=== PATIENT | male | born 1965 | race Two or more races ===

== ENCOUNTER 2023-05-13 00:52 | Inpatient (IN) | payer MEDICAID ==
[~2023-05-13] VITALS: Ht 188 cm; Wt 82.8 kg
[2023-05-13] VITALS (8 sets, daily range): BP systolic 135–159; BP diastolic 79–88; PULSE 11–103; RESP 14–23; TEMP 97.8–98.2; O2SAT 94–100
[2023-05-13] MEDS ORDERED: ASPirin 81 mg TAB PO ONE (01:15)
[2023-05-13] MEDS ORDERED: ONDANSETRON HCL 4 MG/2 ML VIAL IV ONE (01:15)
[2023-05-13] MEDS ORDERED: PANTOPRAZOLE 40 MG/10 ML VIAL INJ IV ONE (01:15)
[2023-05-13] MEDS ORDERED: ACETAMINOPHEN 325 MG TAB PO ONE ×2 (01:15)
[2023-05-13] MEDS ORDERED: methylPREDNISolone SOD SUCC 40 MG/ML VL IV ONE ×2 (01:15→13:00)
[2023-05-13] MEDS ORDERED: ALBUTEROL SULF 2.5 MG/0.5ML(0.5%) NEB SOLN NEB ONE ×2 (01:15→03:15)
[2023-05-13] MEDS ORDERED: FUROSEMIDE 40 MG/4 ML VIAL IV ONE ×2 (01:15→03:15)
[2023-05-13] MEDS ORDERED: IPRATROPIUM BROM 0.5 MG/2.5ML INH SOL NEB ONE (01:15)
[2023-05-13] MEDS ORDERED: NITROGLYCERIN 0.4MG/HR TOPICAL PATCH TD ONE (01:15)
[2023-05-13] MEDS ORDERED: VANCOMYCIN 1GM/250ML 250 ML IV ONE (01:30)
[2023-05-13] MEDS ORDERED: guaiFENesin-DM 100/10mg/5ml SYR PO ONE (01:30)
[2023-05-13] MEDS ORDERED: VANCOMYCIN PER PHARMACY 0 MG IV SCH (01:30)
[2023-05-13] MEDS ORDERED: PIPERACILLIN-TAZOB 3.375GM 100 ML IV ONE (01:30)
[2023-05-13 01:57] LABS: Alanine Aminotransferase 13 U/L (7-40); Albumin 3.9 g/dL (3.2-4.8); Alkaline Phosphatase 105 U/L (46-116); Anion Gap 15 (5-15); Aspartate Aminotransferase 13 U/L (13-40); BUN/Creatinine Ratio 8.5 (10.0-20.0); Bilirubin, Total 0.4 mg/dL (0.2-1.0); Blood Alcohol 3.1 mg/dL (<10); Calcium 9.1 mg/dL (8.7-10.4); Carbon Dioxide 20 mmol/L (20-30); Chloride 103 mmol/L (98-107); Glucose 90 mg/dL (74-106); Magnesium 1.6 mg/dL (1.6-2.6); Sodium 138 mmol/L (136-145); Total Protein 6.9 g/dL (5.7-8.2)
[2023-05-13 01:58] LABS: INR 1.08 (0.9-1.15); Prothrombin Time 11.3 sec (9.3-11.8)
[2023-05-13 02:40] LABS: Basophils # (auto) 0.1 10 ^3/uL (0-0.2); Basophils % (auto) 1.1 % (0.0-2.0); Eosinophils # (auto) 0.2 10 ^3/uL (0-0.8); Hematocrit 28.7 % (41.0-53.0); Hemoglobin 9.8 g/dL (13.5-17.5); Lymphocytes # (auto) 1.8 10 ^3/uL (0.4-5.4); Lymphocytes % (auto) 14.4 % (10.0-50.0); Mean Corpuscular Hemoglobin 31.8 pg (28.0-32.0); Mean Corpuscular Volume 93.5 fL (80.0-100.0); Monocytes # (auto) 0.8 10 ^3/uL (0-1.3); Monocytes % (auto) 6.8 % (0.0-12.0); Neutrophils # (auto) 9.3 10 ^3/uL (1.6-8.6); Neutrophils % (auto) 75.7 % (37.0-80.0); Nucleated Red Blood Cells % 0.1 %; Red Blood Cells 3.07 10^6/uL (4.5-5.90); Red Cell Distribution Width 14.8 % (11.8-14.3); White Blood Cell 12.3 10^3/uL (4.4-10.8)
[2023-05-13 02:41] LABS: Potassium 6.4 mmol/L (3.5-5.1)
[2023-05-13 02:42] LABS: Blood Urea Nitrogen 89 mg/dL (9-23)
[2023-05-13] MEDS ORDERED: SODIUM BICARBONATE 8.4% INJ 50ML SYRINGE IV ONE (03:15)
[2023-05-13] MEDS ORDERED: diphenhdrAMINE HCL 50 MG/1 ML VL IV ONE (03:15)
[2023-05-13] MEDS ORDERED: CALCIUM GLUC 1,000mg/50ml-NS 50 ML IV ONE (03:15)
[2023-05-13] MEDS ORDERED: InsuLIN REG 1unit/0.01ml Soln (100units/ml) IV ONE (03:15)
[2023-05-13] MEDS ORDERED: DEXTROSE (50%) 50ML SYRG IV ONE (03:15)
[2023-05-13] MEDS ORDERED: NITROGLYCERIN 0.4 MG SL TAB SL PRN (04:00)
[2023-05-13] MEDS ORDERED: SODIUM ZIRCONIUM CYCL 10 GM PAK PO ONE (04:00)
[2023-05-13] MEDS ORDERED: TEMAZEPAM 15 MG CAP PO PRN (04:00)
[2023-05-13] MEDS ORDERED: MORPHINE SULFATE INJ 2 MG/ml SYRG IV PRN (04:00)
[2023-05-13] MEDS ORDERED: ONDANSETRON HCL 4 MG/2 ML VIAL IV PRN (04:00)
[2023-05-13 04:30] LABS: Rapid Influenza A Negative (Negative); Rapid Influenza B Negative (Negative)
[2023-05-13 04:31] LABS: COVID19 ANTIGEN SOFIA FIA NEGATIVE (NEGATIVE)
[2023-05-13] MEDS: hydrALAZINE HCL 25 MG TAB PO SCH ×3 (06:17→22:38)
[2023-05-13] MEDS ORDERED: VANCOMYCIN 500 MG in D5W 5% 100 ML IV ONE (08:00)
[2023-05-13] MEDS: CALCIUM ACETATE 667 MG CAP PO SCH ×3 (08:58→18:08)
[2023-05-13] MEDS ORDERED: VALSARTAN 80 MG TAB PO SCH (10:00)
[2023-05-13] MEDS: CARVEDILOL 12.5 MG TAB PO SCH ×2 (10:15→22:37)
[2023-05-13] MEDS: BUMETANIDE 1 MG TAB PO SCH (10:15)
[2023-05-13] MEDS: amLODIPine BESYLATE 5 MG TAB PO SCH (10:16)
[2023-05-13] MEDS: cefTRIAXone 1GM/50ML D5W 50 ML IV SCH (10:52)
[2023-05-13] MEDS: AZITHROMYCIN 500MG/ 250ML 250 ML IV SCH (12:19)
[2023-05-13] MEDS ORDERED: SODIUM CHL 0.9% 1000 ML BAG XX ONE (14:15)
[2023-05-13 17:39] LABS: Amphetamine Screen, Urine Pos (NEGATIVE); Barbiturate Scree,Urine Neg (NEGATIVE); Benzodiazephine Screen, Urine Neg (NEGATIVE); Cannabinoid Screen, Urine Neg (NEGATIVE); Cocaine Screen, Urine Neg (NEGATIVE); Opiate Scree,Urine Neg (NEGATIVE); Phencyclidine Screen, Urine Neg (NEGATIVE); Urine Bacteria NONE SEEN /hpf (None Seen); Urine Blood 1+ /uL (Negative); Urine Clarity HAZY (Clear); Urine Color Yellow (Yellow); Urine Mucus FEW (None Seen); Urine Protein, UAD 4+ (Negative); Urine Specific Gravity 1.025 (1.001-1.035); Urine Urobilinogen Normal (Negative); Urine WBC 8 /hpf (0 - 3); Urine pH 6.5 (5.0-8.0)
[2023-05-13] MEDS: ALBUTEROL SULF 2.5 MG/0.5ML(0.5%) NEB SOLN NEB PRN (18:41)
[2023-05-13] MEDS ORDERED: VALS320T PO (19:00)
[2023-05-13] MEDS ORDERED: ASPI-498 PO (19:00)
[2023-05-13] MEDS ORDERED: LISI2.5T47 PO (19:00)
[2023-05-13] MEDS ORDERED: HYDR-4297 PO (19:00)
[2023-05-13] MEDS ORDERED: CARV12.544 PO (19:00)
[2023-05-13] MEDS ORDERED: TRAZ-228 PO (19:00)
[2023-05-13] MEDS ORDERED: CALC667C PO (19:00)
[2023-05-13] MEDS ORDERED: ATOR20TA50 PO (19:00)
[2023-05-13] MEDS ORDERED: AMLO1TAB22 PO (19:00)
[2023-05-13] MEDS ORDERED: BUME2TAB5 PO (19:00)
[2023-05-13] MEDS ORDERED: FUROSEMIDE 100 MG/10ML VIAL IV ONE (20:15)
[2023-05-13] MEDS ORDERED: EPOETIN ALFA-EPBX 10,000 UNIT/1ML VIAL SC ONE (21:00)
[2023-05-13] MEDS: ATORVASTATIN 20 MG TAB PO SCH (22:37)
[2023-05-13] MEDS: methylPREDNISolone SOD SUCC 40 MG/ML VL IV SCH (22:38)
[2023-05-14] VITALS (13 sets, daily range): BP systolic 128–139; BP diastolic 72–99; PULSE 83–101; RESP 16–22; TEMP 97.7–98.9; O2SAT 96–100
[2023-05-14] MEDS: hydrALAZINE HCL 25 MG TAB PO SCH ×3 (06:05→22:20)
[2023-05-14 06:17] LABS: Basophils # (auto) 0 10 ^3/uL (0-0.2); Basophils % (auto) 0.1 % (0.0-2.0); Eosinophils # (auto) 0 10 ^3/uL (0-0.8); Mean Corpuscular Hgb Conc. 33.8 g/dL (32.0-36.0); Monocytes # (auto) 0.3 10 ^3/uL (0-1.3); Red Blood Cells 2.59 10^6/uL (4.5-5.90); White Blood Cell 16.2 10^3/uL (4.4-10.8)
[2023-05-14 06:19] LABS: Hematocrit 24.1 % (41.0-53.0); Hemoglobin 8.1 g/dL (13.5-17.5); Lymphocytes # (auto) 0.9 10 ^3/uL (0.4-5.4); Lymphocytes % (auto) 5.4 % (10.0-50.0); Mean Corpuscular Hemoglobin 31.4 pg (28.0-32.0); Monocytes % (auto) 2.1 % (0.0-12.0); Neutrophils # (auto) 14.9 10 ^3/uL (1.6-8.6); Neutrophils % (auto) 92.4 % (37.0-80.0)
[2023-05-14 06:25] LABS: Albumin 3.6 g/dL (3.2-4.8); Alkaline Phosphatase 65 U/L (46-116); Anion Gap 19 (5-15); Aspartate Aminotransferase 8 U/L (13-40); BUN/Creatinine Ratio 9.6 (10.0-20.0); Bilirubin, Total < 0.2 mg/dL (0.2-1.0); Calcium 8.5 mg/dL (8.5-10.1); Carbon Dioxide 16 mmol/L (20-30); Chloride 100 mmol/L (98-107); Glucose 133 mg/dL (74-106); Sodium 135 mmol/L (136-145); Total Protein 6.4 g/dL (5.7-8.2)
[2023-05-14 06:28] LABS: Alanine Aminotransferase 9 U/L (7-40)
[2023-05-14 06:31] LABS: Blood Urea Nitrogen 115 mg/dL (9-23); Potassium 6.9 mmol/L (3.5-5.1)
[2023-05-14] MEDS ORDERED: SODIUM CHL 0.9% 1000 ML BAG XX ONE (07:00)
[2023-05-14] MEDS ORDERED: CALCIUM GLUC 1,000mg/50ml-NS 50 ML IV ONE (07:00)
[2023-05-14] MEDS ORDERED: SODIUM ZIRCONIUM CYCL 10 GM PAK PO ONE (07:00)
[2023-05-14] MEDS ORDERED: SODIUM BICARBONATE 8.4% INJ 50ML SYRINGE IV ONE (07:00)
[2023-05-14] MEDS ORDERED: DEXTROSE (50%) 50ML SYRG IV ONE (07:00)
[2023-05-14] MEDS ORDERED: ALBUTEROL SULF 2.5 MG/0.5ML(0.5%) NEB SOLN NEB ONE (07:00)
[2023-05-14] MEDS ORDERED: FUROSEMIDE 40 MG/4 ML VIAL IV ONE (07:00)
[2023-05-14] MEDS ORDERED: InsuLIN REG 1unit/0.01ml Soln (100units/ml) IV ONE (07:00)
[2023-05-14 07:14] LABS: % Iron Saturation 44.5 % (20-55)
[2023-05-14] MEDS: cefTRIAXone 1GM/50ML D5W 50 ML IV SCH (09:00)
[2023-05-14] MEDS: CALCIUM ACETATE 667 MG CAP PO SCH ×3 (09:39→18:25)
[2023-05-14] MEDS: methylPREDNISolone SOD SUCC 40 MG/ML VL IV SCH ×2 (09:47→22:17)
[2023-05-14] MEDS: BUMETANIDE 1 MG TAB PO SCH (09:53)
[2023-05-14] MEDS: amLODIPine BESYLATE 5 MG TAB PO SCH (09:54)
[2023-05-14] MEDS: CARVEDILOL 12.5 MG TAB PO SCH ×2 (09:54→22:19)
[2023-05-14] MEDS: AZITHROMYCIN 500MG/ 250ML 250 ML IV SCH (13:06)
[2023-05-14] MEDS: SODIUM ZIRCONIUM CYCL 10 GM PAK PO SCH ×2 (14:00→22:00)
[2023-05-14] MEDS ORDERED: VANCOMYCIN 1GM/250ML 250 ML IV ONE (18:00)
[2023-05-14] MEDS: ALBUTEROL SULF 2.5 MG/0.5ML(0.5%) NEB SOLN NEB PRN (19:10)
[2023-05-14] MEDS ORDERED: EPOETIN ALFA-EPBX 10,000 UNIT/1ML VIAL SC ONE (21:00)
[2023-05-14] MEDS: ATORVASTATIN 20 MG TAB PO SCH (22:17)
[2023-05-15] VITALS (9 sets, daily range): BP systolic 139–171; BP diastolic 90–105; PULSE 84–101; RESP 16–20; TEMP 98.6; O2SAT 95–100
[2023-05-15] MEDS: ALBUTEROL SULF 2.5 MG/0.5ML(0.5%) NEB SOLN NEB PRN (04:12)
[2023-05-15 06:21] LABS: Anion Gap 12 (5-15); Carbon Dioxide 26 mmol/L (20-30); Chloride 96 mmol/L (98-107); Sodium 134 mmol/L (136-145)
[2023-05-15 06:22] LABS: Calcium 8.9 mg/dL (8.7-10.4)
[2023-05-15 06:27] LABS: BUN/Creatinine Ratio 10.6 (10.0-20.0); Glucose 124 mg/dL (74-106)
[2023-05-15] MEDS: hydrALAZINE HCL 25 MG TAB PO SCH ×2 (06:27→14:00)
[2023-05-15 06:30] LABS: Blood Urea Nitrogen 96 mg/dL (9-23); Potassium 5.8 mmol/L (3.5-5.1)
[2023-05-15] MEDS: SODIUM ZIRCONIUM CYCL 10 GM PAK PO SCH ×2 (06:36→14:00)
[2023-05-15 06:37] LABS: Basophils # (auto) 0 10 ^3/uL (0-0.2); Basophils % (auto) 0.1 % (0.0-2.0); Eosinophils # (auto) 0 10 ^3/uL (0-0.8); Hemoglobin 9.3 g/dL (13.5-17.5); Lymphocytes # (auto) 0.5 10 ^3/uL (0.4-5.4); Lymphocytes % (auto) 3.4 % (10.0-50.0); Mean Corpuscular Hgb Conc. 34.4 g/dL (32.0-36.0); Monocytes # (auto) 0.4 10 ^3/uL (0-1.3); Monocytes % (auto) 2.7 % (0.0-12.0); Neutrophils # (auto) 13.4 10 ^3/uL (1.6-8.6); Neutrophils % (auto) 93.8 % (37.0-80.0); Red Blood Cells 2.91 10^6/uL (4.5-5.90); Red Cell Distribution Width 14.9 % (11.8-14.3); White Blood Cell 14.3 10^3/uL (4.4-10.8)
[2023-05-15] MEDS ORDERED: SODIUM CHL 0.9% 1000 ML BAG XX ONE ×2 (07:00)
[2023-05-15] MEDS: cefTRIAXone 1GM/50ML D5W 50 ML IV SCH ×2 (09:00→09:25)
[2023-05-15] MEDS: CALCIUM ACETATE 667 MG CAP PO SCH ×2 (09:23→12:26)
[2023-05-15] MEDS: methylPREDNISolone SOD SUCC 40 MG/ML VL IV SCH (09:23)
[2023-05-15] MEDS: CARVEDILOL 12.5 MG TAB PO SCH (09:24)
[2023-05-15] MEDS: BUMETANIDE 1 MG TAB PO SCH (09:24)
[2023-05-15] MEDS: amLODIPine BESYLATE 5 MG TAB PO SCH (09:25)
[2023-05-15] MEDS: AZITHROMYCIN 500MG/ 250ML 250 ML IV SCH (10:00)
[2023-05-15] MEDS ORDERED: AMOX500T86 PO (10:08)
[2023-05-15] MEDS ORDERED: PRED20TA2 PO (10:08)
[2023-05-16] MEDS ORDERED: SODIUM CHL 0.9% 1000 ML BAG XX ONE (07:00)
== END 2023-05-15 15:35 | disposition home or self-care (01) | DRG 137 ==
LOC: ER 00:52 → TELE 04:01 → TELE-CENTR 17:22
PROVIDERS: ADMIT Nurse Practitioner; ATTEND Internal Medicine Pulmonary Disease
PROC: 5A1D70Z Performance of Urinary Filtration, Intermittent, Less than 6 Hours Per Day (ICD-10-PCS; principal; 2023-05-14)
PROC: 5A1D70Z Performance of Urinary Filtration, Intermittent, Less than 6 Hours Per Day (ICD-10-PCS; 2023-05-15)
DX: J15.6 Pneumonia due to other Gram-negative bacteria (principal); I13.2 Hypertensive heart and chronic kidney disease with heart failure and with stage 5 chronic kidney disease, or end stage renal disease; N18.6 End stage renal disease; D63.1 Anemia in chronic kidney disease; N25.81 Secondary hyperparathyroidism of renal origin; J44.0 Chronic obstructive pulmonary disease with (acute) lower respiratory infection; J44.1 Chronic obstructive pulmonary disease with (acute) exacerbation; I50.9 Heart failure, unspecified; E87.5 Hyperkalemia; Z20.822 Contact with and (suspected) exposure to COVID-19; F15.10 Other stimulant abuse, uncomplicated; F17.210 Nicotine dependence, cigarettes, uncomplicated; Z82.49 Family history of ischemic heart disease and other diseases of the circulatory system; Z91.158 Patient's noncompliance with renal dialysis for other reason; Z99.2 Dependence on renal dialysis
CPT/HCPCS: 36415; 36600; 71045; 80048; 80053; 80202; 80307; 80320; 81001; 82728; 82805; 82962; 83540; 83550; 83605; 83735; 83880; 84132; 84443; 84484; 85025; 85610; 85730; 87040; 87081; 87086; 87340; 87426; 87804; 90935; 93005; 94640; 96365; 96375; 99291; C9113; G0378; J0696; J1642; J1815; J2543; J7060

== ENCOUNTER 2023-06-02 01:38 | Emergency (ER) | payer MEDICAID ==
[~2023-06-02] VITALS: Ht 190.5 cm; Wt 88.6 kg
[~2023-06-02 01:38] MED LIST: AMLO1TAB22 PO; AMOX500T86 PO; ASPI-498 PO; ATOR20TA50 PO; BUME2TAB5 PO; CALC667C PO; CARV12.544 PO; HYDR-4297 PO; LISI2.5T47 PO; PRED20TA2 PO; TRAZ-228 PO; VALS320T PO
[2023-06-02] MEDS ORDERED: cloNIDine HCL 0.1 MG TAB PO ONE (02:30)
[2023-06-02 03:29] LABS: Basophils # (auto) 0.2 10 ^3/uL (0-0.2); Basophils % (auto) 2.5 % (0.0-2.0); Eosinophils # (auto) 0.3 10 ^3/uL (0-0.8); Eosinophils % (auto) 3.6 % (0.0-7.0); Hematocrit 26.8 % (41.0-53.0); Hemoglobin 9.1 g/dL (13.5-17.5); Lymphocytes # (auto) 1.6 10 ^3/uL (0.4-5.4); Lymphocytes % (auto) 18.7 % (10.0-50.0); Mean Corpuscular Hemoglobin 32.5 pg (28.0-32.0); Mean Corpuscular Hgb Conc. 33.9 g/dL (32.0-36.0); Mean Corpuscular Volume 95.6 fL (80.0-100.0); Monocytes # (auto) 0.7 10 ^3/uL (0-1.3); Neutrophils # (auto) 5.7 10 ^3/uL (1.6-8.6); Neutrophils % (auto) 67.2 % (37.0-80.0); Red Cell Distribution Width 16.1 % (11.8-14.3); White Blood Cell 8.4 10^3/uL (4.4-10.8)
[2023-06-02 03:43] LABS: Alanine Aminotransferase 15 U/L (7-40); Albumin 3.6 g/dL (3.2-4.8); Alkaline Phosphatase 108 U/L (46-116); Anion Gap 12 (5-15); Aspartate Aminotransferase 18 U/L (13-40); Bilirubin, Total 0.3 mg/dL (0.2-1.0); Blood Urea Nitrogen 72 mg/dL (9-23); Calcium 8.3 mg/dL (8.7-10.4); Carbon Dioxide 24 mmol/L (20-30); Chloride 104 mmol/L (98-107); Glucose 88 mg/dL (74-106); INR 1.03 (0.9-1.15); Magnesium 1.7 mg/dL (1.6-2.6); Partial Thromboplastin Time 27.3 SEC (24.5-34.5); Potassium 5.1 mmol/L (3.5-5.1); Prothrombin Time 10.8 sec (9.3-11.8); Sodium 140 mmol/L (136-145); Total Protein 5.9 g/dL (5.7-8.2)
[2023-06-02 06:36] VITALS: BP 175/116; PULSE 85; RESP 17; TEMP 98.1; O2SAT 98
[2023-06-02] MEDS ORDERED: FUROSEMIDE 40 MG/4 ML VIAL IV ONE (06:45)
[2023-06-02] MEDS ORDERED: NITROGLYCERIN 2% OINT 1GM PKG TD ONE (06:45)
== END 2023-06-02 06:56 | disposition left against medical advice (07) ==
LOC: ER 01:38
DX: R06.02 Shortness of breath (principal); Z79.899 Other long term (current) drug therapy; Z53.21 Procedure and treatment not carried out due to patient leaving prior to being seen by health care provider
CPT/HCPCS: 36415; 71045; 80053; 83735; 84484; 85025; 85610; 85730

== ENCOUNTER 2023-06-10 04:49 | Inpatient (IN) | payer MEDICAID ==
[~2023-06-10] VITALS: Ht 188 cm; Wt 80.1 kg
[2023-06-10 05:52] LABS: Basophils # (auto) 0.1 10 ^3/uL (0-0.2); Basophils % (auto) 1.2 % (0.0-2.0); Eosinophils # (auto) 0.6 10 ^3/uL (0-0.8); Eosinophils % (auto) 5.5 % (0.0-7.0); Hematocrit 29.3 % (41.0-53.0); Hemoglobin 9.8 g/dL (13.5-17.5); Lymphocytes # (auto) 1.3 10 ^3/uL (0.4-5.4); Lymphocytes % (auto) 12.5 % (10.0-50.0); Mean Corpuscular Hemoglobin 32.5 pg (28.0-32.0); Mean Corpuscular Hgb Conc. 33.3 g/dL (32.0-36.0); Mean Corpuscular Volume 97.5 fL (80.0-100.0); Monocytes # (auto) 0.9 10 ^3/uL (0-1.3); Monocytes % (auto) 9.1 % (0.0-12.0); Neutrophils # (auto) 7.3 10 ^3/uL (1.6-8.6); Neutrophils % (auto) 71.7 % (37.0-80.0); Red Cell Distribution Width 15.9 % (11.8-14.3); White Blood Cell 10.2 10^3/uL (4.4-10.8)
[2023-06-10 06:27] LABS: Alanine Aminotransferase 33 U/L (7-40); Alkaline Phosphatase 134 U/L (46-116); Anion Gap 15 (5-15); BUN/Creatinine Ratio 8.1 (10.0-20.0); Blood Urea Nitrogen 65 mg/dL (9-23); Calcium 8.9 mg/dL (8.7-10.4); Carbon Dioxide 20 mmol/L (20-30); Chloride 107 mmol/L (98-107); Glucose 88 mg/dL (74-106); Magnesium 1.8 mg/dL (1.6-2.6); Sodium 142 mmol/L (136-145)
[2023-06-10 06:28] LABS: Albumin 3.9 g/dL (3.2-4.8); Aspartate Aminotransferase 35 U/L (13-40); Bilirubin, Total 0.2 mg/dL (0.2-1.0); Total Protein 6.4 g/dL (5.7-8.2)
[2023-06-10 06:31] LABS: Potassium 5.9 mmol/L (3.5-5.1)
[2023-06-10] MEDS ORDERED: SODIUM BICARBONATE 8.4 % INJ 50ML VIAL IV ONE (07:00)
[2023-06-10] MEDS ORDERED: CALCIUM GLUC 1,000mg/50ml-NS 50 ML IV ONE (07:00)
[2023-06-10] MEDS ORDERED: NITROGLYCERIN 0.4 MG SL TAB SL PRN (08:45)
[2023-06-10] MEDS ORDERED: ALBUTEROL MEDNEB 2.5 mg/3ml NEB NEB PRN (08:45)
[2023-06-10] MEDS ORDERED: MORPHINE SULFATE INJ 2 MG/ml SYRG IV PRN (08:45)
[2023-06-10] MEDS: ASPirin-EC 81 mg tab PO SCH (09:33)
[2023-06-10] MEDS: amLODIPine BESYLATE 5 MG TAB PO SCH (09:33)
[2023-06-10] MEDS: BUMETANIDE 1 MG TAB PO SCH (09:34)
[2023-06-10] MEDS: CARVEDILOL 12.5 MG TAB PO SCH ×2 (09:35→22:10)
[2023-06-10] MEDS: ATORVASTATIN 20 MG TAB PO SCH (09:36)
[2023-06-10] MEDS ORDERED: PATIENTS OWN MEDICATION (Lisinopril 2.5 MG) PO SCH (10:00)
[2023-06-10] MEDS ORDERED: VALSARTAN 80 MG TAB PO SCH (10:00)
[2023-06-10] MEDS ORDERED: HEPARIN SODIUM (PORCINE) 5000 UNITS/ML 1ML VIAL ONE (11:12)
[2023-06-10 12:43] VITALS: BP 154/79; PULSE 88; RESP 18; O2SAT 95
[2023-06-10] MEDS: HEPARIN SODIUM (PORCINE) 5000 UNITS/ML 1ML VIAL SC SCH ×2 (12:51→22:11)
[2023-06-10] MEDS: CALCIUM ACETATE 667 MG CAP PO SCH ×2 (13:14→18:15)
[2023-06-10] MEDS ORDERED: SODIUM CHL 0.9% 1000 ML BAG XX ONE (13:15)
[2023-06-10 13:18] VITALS: RESP 18; O2SAT 96
[2023-06-10] MEDS: hydrALAZINE HCL 25 MG TAB PO SCH ×2 (14:26→22:09)
[2023-06-10] MEDS ORDERED: VALS1TAB58 PO (17:38)
[2023-06-10 19:40] VITALS: PULSE 97; RESP 21; O2SAT 97
[2023-06-10] MEDS: ACETAMINOPHEN 325 MG TAB PO PRN (20:15)
[2023-06-10] MEDS: hydrALAZINE HCL 20 MG/ML VL IV PRN (20:16)
[2023-06-10] MEDS ORDERED: EPOETIN ALFA-EPBX 10,000 UNIT/1ML VIAL SC ONE (21:00)
[2023-06-10 23:00] VITALS: BP 157/91; PULSE 96; RESP 18; TEMP 98.4; O2SAT 97
[2023-06-11] VITALS (10 sets, daily range): BP systolic 132–163; BP diastolic 87–97; PULSE 65–91; RESP 14–23; TEMP 97.9–98.3; O2SAT 97–100
[2023-06-11] MEDS: ACETAMINOPHEN 325 MG TAB PO PRN (04:11)
[2023-06-11] MEDS: hydrALAZINE HCL 20 MG/ML VL IV PRN (04:28)
[2023-06-11 06:05] LABS: Basophils # (auto) 0.1 10 ^3/uL (0-0.2); Basophils % (auto) 1.9 % (0.0-2.0); Eosinophils # (auto) 0.3 10 ^3/uL (0-0.8); Hematocrit 26.7 % (41.0-53.0); Hemoglobin 9.2 g/dL (13.5-17.5); Lymphocytes # (auto) 1.4 10 ^3/uL (0.4-5.4); Lymphocytes % (auto) 25.8 % (10.0-50.0); Mean Corpuscular Hemoglobin 32.7 pg (28.0-32.0); Mean Corpuscular Hgb Conc. 34.4 g/dL (32.0-36.0); Monocytes # (auto) 0.7 10 ^3/uL (0-1.3); Monocytes % (auto) 12.9 % (0.0-12.0); Neutrophils # (auto) 2.9 10 ^3/uL (1.6-8.6); Neutrophils % (auto) 53.4 % (37.0-80.0); Red Blood Cells 2.82 10^6/uL (4.5-5.90); Red Cell Distribution Width 15.5 % (11.8-14.3); White Blood Cell 5.4 10^3/uL (4.4-10.8)
[2023-06-11] MEDS: hydrALAZINE HCL 25 MG TAB PO SCH ×3 (06:15→20:53)
[2023-06-11 06:32] LABS: Alanine Aminotransferase 26 U/L (7-40); Albumin 3.5 g/dL (3.2-4.8); Alkaline Phosphatase 108 U/L (46-116); Anion Gap 9 (5-15); Aspartate Aminotransferase 30 U/L (13-40); BUN/Creatinine Ratio 6.1 (10.0-20.0); Calcium 8.6 mg/dL (8.7-10.4); Carbon Dioxide 27 mmol/L (20-30); Chloride 105 mmol/L (98-107); Glucose 83 mg/dL (74-106); Potassium 4.8 mmol/L (3.5-5.1); Sodium 141 mmol/L (136-145)
[2023-06-11 06:33] LABS: Bilirubin, Total 0.3 mg/dL (0.2-1.0); Total Protein 5.9 g/dL (5.7-8.2)
[2023-06-11 06:46] LABS: Blood Urea Nitrogen 34 mg/dL (9-23)
[2023-06-11] MEDS: CALCIUM ACETATE 667 MG CAP PO SCH ×3 (08:04→18:48)
[2023-06-11] MEDS ORDERED: LORazepam 0.5 MG TAB PO PRN (10:30)
[2023-06-11] MEDS ORDERED: ACETAMINOPHEN 325 MG TAB PO PRN (10:30)
[2023-06-11] MEDS ORDERED: NICOTINE 21MG/24 HR TOPICAL PATCH TD ONE (10:30)
[2023-06-11] MEDS: ASPirin-EC 81 mg tab PO SCH (11:45)
[2023-06-11] MEDS: BUMETANIDE 1 MG TAB PO SCH (11:46)
[2023-06-11] MEDS: amLODIPine BESYLATE 5 MG TAB PO SCH (11:47)
[2023-06-11] MEDS: ATORVASTATIN 20 MG TAB PO SCH (11:48)
[2023-06-11] MEDS: CARVEDILOL 12.5 MG TAB PO SCH ×2 (11:49→20:54)
[2023-06-11] MEDS: HEPARIN SODIUM (PORCINE) 5000 UNITS/ML 1ML VIAL SC SCH ×2 (11:50→22:00)
[2023-06-11] MEDS ORDERED: HEPARIN SODIUM (PORCINE) 5000 UNITS/ML 1ML VIAL ONE ×2 (20:36→20:37)
[2023-06-12] VITALS (7 sets, daily range): BP systolic 143–168; BP diastolic 85–108; PULSE 82–92; RESP 18–20; TEMP 36.7; O2SAT 96–100
[2023-06-12] MEDS: hydrALAZINE HCL 25 MG TAB PO SCH ×2 (06:30→15:30)
[2023-06-12] MEDS ORDERED: SODIUM CHL 0.9% 1000 ML BAG XX ONE (07:00)
[2023-06-12] MEDS: CALCIUM ACETATE 667 MG CAP PO SCH ×2 (08:50→15:29)
[2023-06-12] MEDS ORDERED: NICOTINE 21MG/24 HR TOPICAL PATCH TD SCH (10:00)
[2023-06-12] MEDS: HEPARIN SODIUM (PORCINE) 5000 UNITS/ML 1ML VIAL SC SCH (10:00)
[2023-06-12] MEDS: ASPirin-EC 81 mg tab PO SCH (15:27)
[2023-06-12] MEDS: ATORVASTATIN 20 MG TAB PO SCH (15:27)
[2023-06-12] MEDS: CARVEDILOL 12.5 MG TAB PO SCH (15:28)
[2023-06-12] MEDS: BUMETANIDE 1 MG TAB PO SCH (15:29)
[2023-06-12] MEDS: amLODIPine BESYLATE 5 MG TAB PO SCH (15:29)
== END 2023-06-12 16:45 | disposition home or self-care (01) | DRG 133 ==
LOC: EDUNIT# 04:49 → ER 04:49 → EDBD 04:49 → TELE 08:43 → EAST 21:53 → TELE-EAST 06-11 02:15
PROVIDERS: ADMIT Nurse Practitioner Family; ATTEND Internal Medicine
PROC: 5A1D70Z Performance of Urinary Filtration, Intermittent, Less than 6 Hours Per Day (ICD-10-PCS; principal; 2023-06-10)
PROC: 5A1D70Z Performance of Urinary Filtration, Intermittent, Less than 6 Hours Per Day (ICD-10-PCS; 2023-06-12)
DX: J96.00 Acute respiratory failure, unspecified whether with hypoxia or hypercapnia (principal); I21.A1 Myocardial infarction type 2; I50.33 Acute on chronic diastolic (congestive) heart failure; E87.20 Acidosis, unspecified; D63.1 Anemia in chronic kidney disease; N18.6 End stage renal disease; I13.2 Hypertensive heart and chronic kidney disease with heart failure and with stage 5 chronic kidney disease, or end stage renal disease; E87.5 Hyperkalemia; F17.210 Nicotine dependence, cigarettes, uncomplicated; Z87.01 Personal history of pneumonia (recurrent); Z91.199 Patient's noncompliance with other medical treatment and regimen due to unspecified reason; Z99.2 Dependence on renal dialysis; Z82.49 Family history of ischemic heart disease and other diseases of the circulatory system; Z83.3 Family history of diabetes mellitus; Z71.6 Tobacco abuse counseling
CPT/HCPCS: 36415; 71045; 80053; 83735; 83880; 84132; 84484; 85025; 87340; 90935; 93005; 93306; 94640; 99291; G0378; J1642

== ENCOUNTER 2023-09-22 02:07 | Inpatient (IN) | payer MEDICAID ==
[~2023-09-22] VITALS: Ht 188 cm; Wt 88.0 kg
[2023-09-22] VITALS (11 sets, daily range): BP systolic 147; BP diastolic 107; PULSE 91–99; RESP 14–22; TEMP 97.9; O2SAT 91–97
[~2023-09-22 02:07] MED LIST changes: -AMOX500T86 PO; -LISI2.5T47 PO; +VALS1TAB58 PO; -VALS320T PO
[2023-09-22] MEDS: cloNIDine HCL 0.1 MG TAB PO ONE (02:54)
[2023-09-22 02:56] LABS: Basophils # (auto) 0.1 10 ^3/uL (0-0.2); Basophils % (auto) 1.9 % (0.0-2.0); Eosinophils # (auto) 0.3 10 ^3/uL (0-0.8); Eosinophils % (auto) 3.7 % (0.0-7.0); Hematocrit 29.9 % (41.0-53.0); Hemoglobin 9.6 g/dL (13.5-17.5); Lymphocytes # (auto) 1.1 10 ^3/uL (0.4-5.4); Lymphocytes % (auto) 15.4 % (10.0-50.0); Mean Corpuscular Hemoglobin 31.7 pg (28.0-32.0); Mean Corpuscular Hgb Conc. 32.1 g/dL (32.0-36.0); Mean Corpuscular Volume 98.7 fL (80.0-100.0); Monocytes # (auto) 0.5 10 ^3/uL (0-1.3); Monocytes % (auto) 7.8 % (0.0-12.0); Neutrophils % (auto) 71.2 % (37.0-80.0); Nucleated Red Blood Cells % 0.1 %; Red Blood Cells 3.03 10^6/uL (4.5-5.90); Red Cell Distribution Width 15.7 % (11.8-14.3)
[2023-09-22 03:04] LABS: Alanine Aminotransferase 13 U/L (7-40); Albumin 4.1 g/dL (3.2-4.8); Alkaline Phosphatase 150 U/L (46-116); Anion Gap 9 (5-15); Aspartate Aminotransferase 14 U/L (13-40); BUN/Creatinine Ratio 7.7 (10.0-20.0); Bilirubin, Total 0.4 mg/dL (0.2-1.0); Blood Urea Nitrogen 55 mg/dL (9-23); Calcium 8.9 mg/dL (8.7-10.4); Carbon Dioxide 27 mmol/L (20-30); Chloride 104 mmol/L (98-107); Glucose 85 mg/dL (74-106); Potassium 4.9 mmol/L (3.5-5.1); Sodium 140 mmol/L (136-145); Total Protein 6.9 g/dL (5.7-8.2)
[2023-09-22] MEDS: ALBUTEROL SULF 2.5 MG/0.5ML(0.5%) NEB SOLN NEB ONE (03:16)
[2023-09-22] MEDS: methylPREDNISolone SOD SUCC 125 MG/2 ML VL IM ONE (04:09)
[2023-09-22] MEDS: IPRATROPIUM BROM 0.5 MG/2.5ML INH SOL NEB PRN (05:34)
[2023-09-22] MEDS: ALBUTEROL SULF 2.5 MG/0.5ML(0.5%) NEB SOLN NEB PRN (05:35)
[2023-09-22] MEDS: cefTRIAXone 1GM/50ML D5W 50 ML IV ONE (05:50)
[2023-09-22] MEDS ORDERED: ONDANSETRON HCL 4 MG/2 ML VIAL IV PRN (07:15)
[2023-09-22] MEDS ORDERED: ACETAMINOPHEN 325 MG TAB PO PRN (07:15)
[2023-09-22] MEDS ORDERED: MORPHINE SULFATE INJ 2 MG/ml SYRG IV PRN (07:15)
[2023-09-22] MEDS ORDERED: NITROGLYCERIN 0.4 MG SL TAB SL PRN (07:15)
[2023-09-22] MEDS ORDERED: cloNIDine HCL 0.1 MG TAB PO PRN (07:15)
[2023-09-22] MEDS ORDERED: HYDROcodone-ACET 5/325MG TAB PO PRN (07:15)
[2023-09-22] MEDS ORDERED: DOCUSATE SOD 100 MG CAP PO PRN (07:15)
[2023-09-22 07:55] LABS: Basophils # (auto) 0.1 10 ^3/uL (0-0.2); Basophils % (auto) 0.7 % (0.0-2.0); Eosinophils # (auto) 0 10 ^3/uL (0-0.8); Eosinophils % (auto) 0.7 % (0.0-7.0); Hematocrit 30.9 % (41.0-53.0); Hemoglobin 10.2 g/dL (13.5-17.5); Lymphocytes # (auto) 0.5 10 ^3/uL (0.4-5.4); Mean Corpuscular Hemoglobin 32.6 pg (28.0-32.0); Mean Corpuscular Hgb Conc. 33.1 g/dL (32.0-36.0); Mean Corpuscular Volume 98.3 fL (80.0-100.0); Monocytes # (auto) 0.2 10 ^3/uL (0-1.3); Monocytes % (auto) 2.3 % (0.0-12.0); Neutrophils # (auto) 6.3 10 ^3/uL (1.6-8.6); Neutrophils % (auto) 89.3 % (37.0-80.0); Red Blood Cells 3.14 10^6/uL (4.5-5.90); Red Cell Distribution Width 15.2 % (11.8-14.3); White Blood Cell 7.1 10^3/uL (4.4-10.8)
[2023-09-22 08:13] LABS: Alanine Aminotransferase 20 U/L (7-40); Albumin 4.3 g/dL (3.2-4.8); Alkaline Phosphatase 157 U/L (46-116); Anion Gap 13 (5-15); Aspartate Aminotransferase 20 U/L (13-40); BUN/Creatinine Ratio 9.2 (10.0-20.0); Calcium 9.3 mg/dL (8.5-10.1); Carbon Dioxide 24 mmol/L (20-30); Chloride 103 mmol/L (98-107); Glucose 105 mg/dL (74-106); Sodium 140 mmol/L (136-145)
[2023-09-22 08:14] LABS: Bilirubin, Total 0.5 mg/dL (0.2-1.0); Total Protein 6.9 g/dL (5.7-8.2)
[2023-09-22 08:19] LABS: Blood Urea Nitrogen 68 mg/dL (9-23); Potassium 5.7 mmol/L (3.5-5.1)
[2023-09-22] MEDS: HEPARIN SODIUM (PORCINE) 5000 UNITS/ML 1ML VIAL SC SCH (09:02)
[2023-09-22] MEDS: FAMOTIDINE (10MG/ML) 2ML VL IV SCH (09:03)
[2023-09-22] MEDS: B-COMPLEX W/ C & FOLIC ACID(NEPHROVITE TAB) PO SCH (09:03)
[2023-09-22] MEDS: ASPirin 81 mg TAB PO SCH (09:03)
[2023-09-22] MEDS: SEVELAMER 800 MG TAB PO SCH (09:03)
[2023-09-22] MEDS: AZITHROMYCIN 500MG/ 250ML 250 ML IV SCH (09:05)
[2023-09-22] MEDS: SODIUM ZIRCONIUM CYCL 10 GM PAK PO ONE (09:05)
[2023-09-22] MEDS: CARVEDILOL 12.5 MG TAB PO SCH (09:05)
[2023-09-22 09:42] LABS: Triglycerides 57 mg/dL (< 150)
[2023-09-22 09:43] LABS: LDL Cholesterol 62 mg/dL (< 100)
[2023-09-22 09:44] LABS: Cholesterol 126 mg/dL (< 200); HDL Cholesterol 53 mg/dL (40-59)
[2023-09-22] MEDS: BUDESONIDE (INHALATION) 0.5 MG/2 ML NEB NEB SCH (10:35)
[2023-09-22] MEDS: cefTRIAXone 1GM/50ML D5W 50 ML IV SCH (11:06)
[2023-09-22 12:15] LABS: COVID19 ANTIGEN SOFIA FIA NEGATIVE (NEGATIVE); Rapid Influenza A Negative (Negative); Rapid Influenza B Negative (Negative)
[2023-09-22] MEDS: SODIUM CHL 0.9% 1000 ML BAG XX ONE (13:43)
[2023-09-22] MEDS ORDERED: methylPREDNISolone SOD SUCC 40 MG/ML VL IV SCH (14:00)
[2023-09-22] MEDS: SODIUM CHLOR 0.9% PF (SALINE LOCK) 10ML VIAL/SYR IV SCH (14:09)
[2023-09-22] MEDS: BUMETANIDE 2.5mg/10ml (0.25 mg/ml) INJ IV SCH (18:34)
[2023-09-22] MEDS: ATORVASTATIN 20 MG TAB PO SCH (21:10)
[2023-09-23] MEDS: BUMETANIDE 1mg/4ml VIAL (0.25mg/ml) ONE (05:22)
[2023-09-23 05:33] LABS: Basophils # (auto) 0 10 ^3/uL (0-0.2); Basophils % (auto) 0.2 % (0.0-2.0); Eosinophils # (auto) 0 10 ^3/uL (0-0.8); Eosinophils % (auto) 0.1 % (0.0-7.0); Hematocrit 28.8 % (41.0-53.0); Hemoglobin 9.5 g/dL (13.5-17.5); Lymphocytes # (auto) 1.2 10 ^3/uL (0.4-5.4); Lymphocytes % (auto) 12.6 % (10.0-50.0); Mean Corpuscular Hemoglobin 32.4 pg (28.0-32.0); Monocytes # (auto) 0.7 10 ^3/uL (0-1.3); Monocytes % (auto) 7.5 % (0.0-12.0); Neutrophils # (auto) 7.5 10 ^3/uL (1.6-8.6); Neutrophils % (auto) 79.6 % (37.0-80.0); Red Blood Cells 2.94 10^6/uL (4.5-5.90); Red Cell Distribution Width 14.9 % (11.8-14.3); White Blood Cell 9.4 10^3/uL (4.4-10.8)
[2023-09-23 05:47] LABS: Alanine Aminotransferase 16 U/L (7-40); Alkaline Phosphatase 126 U/L (46-116); Anion Gap 9 (5-15); Aspartate Aminotransferase 14 U/L (13-40); BUN/Creatinine Ratio 8.2 (10.0-20.0); Calcium 9.1 mg/dL (8.5-10.1); Carbon Dioxide 29 mmol/L (20-30); Chloride 101 mmol/L (98-107); Glucose 96 mg/dL (74-106); Sodium 139 mmol/L (136-145)
[2023-09-23 05:48] LABS: Bilirubin, Total 0.3 mg/dL (0.2-1.0); Total Protein 6.6 g/dL (5.7-8.2)
[2023-09-23 05:49] LABS: Blood Urea Nitrogen 51 mg/dL (9-23)
[2023-09-23 06:05] VITALS: PULSE 95; RESP 16; O2SAT 95
[2023-09-23 06:15] VITALS: PULSE 95; RESP 16; O2SAT 100
[2023-09-23] MEDS: SODIUM ZIRCONIUM CYCL 10 GM PAK PO ONE (06:46)
[2023-09-23] MEDS: CALCIUM GLUC 1,000mg/50ml-NS 50 ML IV ONE (06:46)
[2023-09-23] MEDS: DEXTROSE (50%) 50ML SYRG IV ONE (06:47)
[2023-09-23] MEDS: SODIUM BICARBONATE 8.4 % INJ 50ML VIAL IV ONE (06:47)
[2023-09-23] MEDS: InsuLIN REG 1unit/0.01ml Soln (100units/ml) IV ONE (06:50)
[2023-09-23 08:36] VITALS: PULSE 93; RESP 20; O2SAT 97
[2023-09-23 09:31] LABS: Alanine Aminotransferase 13 U/L (7-40); Alkaline Phosphatase 119 U/L (46-116); Anion Gap 10 (5-15); Aspartate Aminotransferase 16 U/L (13-40); BUN/Creatinine Ratio 8.8 (10.0-20.0); Blood Urea Nitrogen 54 mg/dL (9-23); Calcium 9.1 mg/dL (8.5-10.1); Carbon Dioxide 29 mmol/L (20-30); Chloride 99 mmol/L (98-107); Glucose 53 mg/dL (74-106); Sodium 138 mmol/L (136-145)
[2023-09-23 09:32] LABS: Albumin 3.9 g/dL (3.2-4.8); Bilirubin, Total 0.4 mg/dL (0.2-1.0); Total Protein 6.5 g/dL (5.7-8.2)
[2023-09-23] MEDS ORDERED: AZITTAB PO (11:38)
[2023-09-23 13:43] VITALS: BP 130/91; PULSE 89; RESP 16; TEMP 98.4; O2SAT 97
== END 2023-09-23 13:41 | disposition home or self-care (01) | DRG 137 ==
LOC: ER 02:07 → TELE 07:24
PROVIDERS: ADMIT Nurse Practitioner Family; ATTEND Nurse Practitioner Acute Care
PROC: 5A1D70Z Performance of Urinary Filtration, Intermittent, Less than 6 Hours Per Day (ICD-10-PCS; principal; 2023-09-22)
DX: J15.69 Pneumonia due to other Gram-negative bacteria (principal); J96.01 Acute respiratory failure with hypoxia; I21.A1 Myocardial infarction type 2; I50.43 Acute on chronic combined systolic (congestive) and diastolic (congestive) heart failure; E87.20 Acidosis, unspecified; E83.39 Other disorders of phosphorus metabolism; D63.1 Anemia in chronic kidney disease; N18.6 End stage renal disease; E87.5 Hyperkalemia; J44.0 Chronic obstructive pulmonary disease with (acute) lower respiratory infection; I48.91 Unspecified atrial fibrillation; Z20.822 Contact with and (suspected) exposure to COVID-19; F17.210 Nicotine dependence, cigarettes, uncomplicated; I13.2 Hypertensive heart and chronic kidney disease with heart failure and with stage 5 chronic kidney disease, or end stage renal disease; I16.0 Hypertensive urgency; Z71.6 Tobacco abuse counseling; Z99.2 Dependence on renal dialysis; Z83.3 Family history of diabetes mellitus; Z82.49 Family history of ischemic heart disease and other diseases of the circulatory system
CPT/HCPCS: 36415; 36600; 71045; 78582; 80053; 80061; 82805; 83036; 83605; 83735; 83880; 84443; 84484; 85025; 85379; 86850; 86900; 86901; 87040; 87340; 87426; 87804; 90935; 93005; 94640; 96365; 96372; G0378; J1642; J1815; J3490

== ENCOUNTER 2024-05-25 01:28 | Inpatient (IN) | payer MEDICAID ==
[~2024-05-25] VITALS: Ht 208.3 cm; Wt 85.0 kg
[~2024-05-25 01:28] MED LIST changes: +AMLO1TAB23 PO; +AZITTAB PO; -HYDR-4297 PO; +HYDR50TA47 PO; -PRED20TA2 PO
[2024-05-25 02:00] VITALS: PULSE 101; RESP 35; O2SAT 96
[2024-05-25 02:21] LABS: Basophils # (auto) 0.1 10 ^3/uL (0-0.2); Basophils % (auto) 0.8 % (0.0-2.0); Eosinophils # (auto) 0.4 10 ^3/uL (0-0.8); Eosinophils % (auto) 4.6 % (0.0-7.0); Hematocrit 32.1 % (41.0-53.0); Hemoglobin 11.1 g/dL (13.5-17.5); Lymphocytes % (auto) 10.8 % (10.0-50.0); Mean Corpuscular Hemoglobin 33.6 pg (28.0-32.0); Mean Corpuscular Hgb Conc. 34.5 g/dL (32.0-36.0); Mean Corpuscular Volume 97.2 fL (80.0-100.0); Monocytes # (auto) 0.7 10 ^3/uL (0-1.3); Monocytes % (auto) 7.6 % (0.0-12.0); Neutrophils # (auto) 7.4 10 ^3/uL (1.6-8.6); Neutrophils % (auto) 76.2 % (37.0-80.0); Platelet Count (auto) 169 10^3/uL (140-450); Red Cell Distribution Width 14.2 % (11.8-14.3); White Blood Cell 9.7 10^3/uL (4.4-10.8)
[2024-05-25 02:30] LABS: Chloride 103 mmol/L (98-107); Sodium 139 mmol/L (136-145)
[2024-05-25 02:31] LABS: Anion Gap 23 (5-15); Carbon Dioxide 13 mmol/L (20-31)
[2024-05-25 02:32] LABS: Calcium 9.4 mg/dL (8.7-10.4)
[2024-05-25 02:36] LABS: Glucose 88 mg/dL (74-106)
[2024-05-25 02:37] LABS: BUN/Creatinine Ratio 7.9 (10.0-20.0); Magnesium 1.7 mg/dL (1.6-2.6)
[2024-05-25 02:39] LABS: Phosphorus 10.1 mg/dL (2.4-5.1)
[2024-05-25 02:47] LABS: Blood Urea Nitrogen 133 mg/dL (9-23); Potassium 6.7 mmol/L (3.5-5.1)
[2024-05-25 03:02] LABS: Urine Bacteria None Seen /hpf (None Seen)
[2024-05-25] MEDS: InsuLIN REG 1unit/0.01ml Soln (100units/ml) IV ONE (03:15)
[2024-05-25 03:18] LABS: Urine Blood 1+ /uL (Negative); Urine Clarity Clear (Clear); Urine Color Light-Yellow (Yellow); Urine Protein, UAD 2+ (Negative); Urine Specific Gravity 1.011 (1.001-1.035); Urine Urobilinogen Normal (Negative); Urine WBC <1 /hpf (0 - 3); Urine pH 7.5 (5.0-9.0)
[2024-05-25] MEDS: LORazepam 2MG/ML-1ML VIAL IV ONE (03:39)
[2024-05-25] MEDS: SODIUM BICARB 8.4% 50Meq/50ml SYR Vial IV ONE (03:47)
[2024-05-25] MEDS: DEXTROSE (50%) 50ML SYRG IV ONE (03:47)
[2024-05-25] MEDS: CALCIUM GLUC 1,000mg/50ml-NS 50 ML IV SCH (03:48)
[2024-05-25] MEDS ORDERED: hydrALAZINE HCL 20 MG/ML VL IV PRN (06:30)
[2024-05-25] MEDS ORDERED: LORazepam 2MG/ML-1ML VIAL IV PRN (06:45)
[2024-05-25] MEDS: FUROSEMIDE 100 MG/10ML VIAL IV ONE (06:46)
[2024-05-25] MEDS: ALBUTEROL SULF 2.5 MG/0.5ML(0.5%) NEB SOLN NEB ONE ×2 (07:09→08:26)
[2024-05-25] MEDS: IPRATROPIUM BROM 0.5 MG/2.5ML INH SOL NEB ONE (07:10)
[2024-05-25 07:13] LABS: Alanine Aminotransferase 16 U/L (7-40); Albumin 4.8 g/dL (3.2-4.8); Alkaline Phosphatase 247 U/L (46-116); Anion Gap 22 (5-15); Aspartate Aminotransferase 13 U/L (13-40); BUN/Creatinine Ratio 6.5 (10.0-20.0); Bilirubin, Total 0.3 mg/dL (0.2-1.0); Calcium 10.1 mg/dL (8.7-10.4); Carbon Dioxide 11 mmol/L (20-31); Chloride 106 mmol/L (98-107); Glucose 85 mg/dL (74-106); Sodium 139 mmol/L (136-145); Total Protein 8.4 g/dL (5.7-8.2)
[2024-05-25] MEDS: IOHEXOL 350 MG/ML 100ML IJ ONE (07:16)
[2024-05-25 07:18] LABS: Blood Urea Nitrogen 107 mg/dL (9-23); Potassium 6.2 mmol/L (3.5-5.1)
[2024-05-25 07:20] VITALS: PULSE 103; RESP 16; O2SAT 96
[2024-05-25 07:24] LABS: Base Excess -10.8 mmol/L (-2.0-3.0)
[2024-05-25] MEDS: predniSONE 20 MG TAB PO ONE (07:49)
[2024-05-25] MEDS: SODIUM ZIRCONIUM CYCL 10 GM PAK PO ONE (08:35)
[2024-05-25] MEDS: FUROSEMIDE 20 MG/2 ML VIAL IV ONE (08:35)
[2024-05-25] MEDS: CALCIUM GLUC 1,000mg/50ml-NS 50 ML IV ONE (08:36)
[2024-05-25] MEDS: SODIUM BICARB 8.4% 50Meq/50ml SYR INJ IV ONE (08:36)
[2024-05-25] MEDS ORDERED: CARVEDILOL 12.5 MG TAB PO SCH (10:00)
[2024-05-25] MEDS: AMIODARONE BOLUS KIT 100 ML IV ONE ×2 (11:54→12:49)
[2024-05-25] MEDS: AMIODARONE 450mg/250ml AE 250 ML IV SCH ×2 (12:05→18:39)
[2024-05-25] MEDS: fentaNYL CITRATE 100 MCG/2 ML VL IV ONE (12:40)
[2024-05-25] MEDS: METOPROLOL TARTRATE 1MG/1ML-5ML VIAL IV ONE ×2 (12:46→13:38)
[2024-05-25] MEDS: AMIODARONE HCL (50 MG/ ML) 3 ML VIAL IV ONE (12:48)
[2024-05-25] MEDS: MAGNESIUM SULFATE 1GM/100ML 100 ML IV ONE ×2 (12:53→13:54)
[2024-05-25] MEDS: fentaNYL CITRATE 100 MCG/2 ML VL ONE (13:08)
[2024-05-25] MEDS: hydrALAZINE HCL 25 MG TAB PO SCH (13:08)
[2024-05-25] MEDS: HEPARIN 1,000 UNITS/ml 1ML VIAL IV ONE (13:08)
[2024-05-25 13:53] LABS: COVID19 ANTIGEN SOFIA FIA NEGATIVE (NEGATIVE); Rapid Influenza A Negative (Negative); Rapid Influenza B Negative (Negative)
[2024-05-25 14:22] LABS: Chloride 98 mmol/L (98-107); Sodium 140 mmol/L (136-145)
[2024-05-25 14:23] LABS: Anion Gap 18 (5-15); Carbon Dioxide 24 mmol/L (20-31)
[2024-05-25] MEDS: SODIUM ZIRCONIUM CYCL 10 GM PAK PO SCH (14:23)
[2024-05-25 14:24] LABS: Calcium 9.7 mg/dL (8.7-10.4)
[2024-05-25] MEDS: HEPARIN SODIUM (PORCINE) 5000 UNITS/ML 1ML VIAL SC SCH (14:25)
[2024-05-25 14:28] LABS: BUN/Creatinine Ratio 6.6 (10.0-20.0); Glucose 160 mg/dL (74-106)
[2024-05-25 14:38] LABS: Blood Urea Nitrogen 66 mg/dL (9-23)
[2024-05-25] MEDS: AZITHROMYCIN 500MG/ 250ML 250 ML IV SCH (14:57)
[2024-05-25 15:55] VITALS: BP 136/84; PULSE 86; RESP 16; RESP 18; TEMP 98.7; O2SAT 97
[2024-05-25] MEDS: FUROSEMIDE 100 MG/10ML VIAL IV SCH (18:37)
[2024-05-25 19:42] LABS: Anion Gap 19 (5-15); Calcium 9.4 mg/dL (8.7-10.4); Carbon Dioxide 21 mmol/L (20-31); Chloride 97 mmol/L (98-107); Sodium 137 mmol/L (136-145)
[2024-05-25 19:48] LABS: Glucose 148 mg/dL (74-106)
[2024-05-25 20:00] VITALS: PULSE 83
[2024-05-25 20:40] LABS: Blood Urea Nitrogen 75 mg/dL (9-23); Potassium 4.2 mmol/L (3.5-5.1)
[2024-05-25 22:00] VITALS: BP 133/91; PULSE 83; RESP 18; TEMP 97.8; O2SAT 98
[2024-05-25] MEDS: METOPROLOL TARTRATE 25 MG TAB PO SCH (22:29)
[2024-05-25] MEDS: AMIODARONE HCL 200 MG TAB PO ONE (22:42)
[2024-05-26] VITALS (10 sets, daily range): BP systolic 84–157; BP diastolic 66–98; PULSE 75–98; RESP 16–21; TEMP 97–97.8; O2SAT 93–100
[2024-05-26 01:36] LABS: Chloride 97 mmol/L (98-107); Sodium 137 mmol/L (136-145)
[2024-05-26 01:37] LABS: Anion Gap 16 (5-15); Carbon Dioxide 24 mmol/L (20-31)
[2024-05-26 01:38] LABS: Calcium 9.5 mg/dL (8.7-10.4)
[2024-05-26 01:42] LABS: Glucose 96 mg/dL (74-106)
[2024-05-26 01:43] LABS: BUN/Creatinine Ratio 7.3 (10.0-20.0)
[2024-05-26 01:56] LABS: Blood Urea Nitrogen 82 mg/dL (9-23); Potassium 6.1 mmol/L (3.5-5.1)
[2024-05-26 06:27] LABS: Anion Gap 15 (5-15); Calcium 9.5 mg/dL (8.7-10.4); Carbon Dioxide 26 mmol/L (20-31); Chloride 98 mmol/L (98-107); Potassium 4.7 mmol/L (3.5-5.1); Sodium 139 mmol/L (136-145)
[2024-05-26 06:32] LABS: Glucose 84 mg/dL (74-106)
[2024-05-26 06:33] LABS: Triglycerides 105 mg/dL (< 150)
[2024-05-26 06:34] LABS: Cholesterol 154 mg/dL (< 200); LDL Cholesterol 92 mg/dL (< 100); Magnesium 2.4 mg/dL (1.6-2.6)
[2024-05-26 06:35] LABS: HDL Cholesterol 47 mg/dL (40-59)
[2024-05-26 06:41] LABS: Blood Urea Nitrogen 81 mg/dL (9-23)
[2024-05-26 06:52] LABS: Basophils # (auto) 0 10 ^3/uL (0-0.2); Basophils % (auto) 0.4 % (0.0-2.0); Eosinophils # (auto) 0 10 ^3/uL (0-0.8); Monocytes # (auto) 0.7 10 ^3/uL (0-1.3)
[2024-05-26] MEDS: CALCIUM GLUC 1,000mg/50ml-NS 50 ML IV ONE ×2 (06:53→18:59)
[2024-05-26] MEDS: InsuLIN REG 1unit/0.01ml Soln (100units/ml) IV ONE (06:54)
[2024-05-26] MEDS: DEXTROSE (50%) 50ML SYRG IV ONE (06:54)
[2024-05-26 06:55] LABS: Eosinophils % (auto) 0.7 % (0.0-7.0); Hematocrit 30.6 % (41.0-53.0); Hemoglobin 10.7 g/dL (13.5-17.5); Lymphocytes % (auto) 13.9 % (10.0-50.0); Mean Corpuscular Hemoglobin 33.3 pg (28.0-32.0); Mean Corpuscular Hgb Conc. 34.9 g/dL (32.0-36.0); Mean Corpuscular Volume 95.3 fL (80.0-100.0); Monocytes % (auto) 9.1 % (0.0-12.0); Neutrophils # (auto) 5.7 10 ^3/uL (1.6-8.6); Neutrophils % (auto) 75.9 % (37.0-80.0); Platelet Count (auto) 183 10^3/uL (140-450); Red Blood Cells 3.21 10^6/uL (4.5-5.90); Red Cell Distribution Width 13.9 % (11.8-14.3); White Blood Cell 7.5 10^3/uL (4.4-10.8)
[2024-05-26] MEDS: predniSONE 20 MG TAB PO SCH (10:49)
[2024-05-26] MEDS: AMIODARONE HCL 200 MG TAB PO SCH (10:50)
[2024-05-26] MEDS ORDERED: B-CO-6 PO (14:52)
[2024-05-26 16:51] LABS: Carbon Dioxide 20 mmol/L (20-31); Chloride 96 mmol/L (98-107)
[2024-05-26 16:52] LABS: Calcium 9.4 mg/dL (8.7-10.4)
[2024-05-26 16:57] LABS: BUN/Creatinine Ratio 6.6 (10.0-20.0); Blood Urea Nitrogen 79 mg/dL (9-23); Glucose 145 mg/dL (74-106)
[2024-05-26 17:42] LABS: Anion Gap 18 (5-15); Sodium 134 mmol/L (136-145)
[2024-05-26] MEDS: ALBUTEROL SULF 2.5 MG/0.5ML(0.5%) NEB SOLN ONE (19:04)
[2024-05-26 20:36] LABS: Chloride 96 mmol/L (98-107); Sodium 135 mmol/L (136-145)
[2024-05-26 20:37] LABS: Anion Gap 18 (5-15); Carbon Dioxide 21 mmol/L (20-31)
[2024-05-26 20:38] LABS: Calcium 9.4 mg/dL (8.7-10.4)
[2024-05-26 20:42] LABS: Glucose 136 mg/dL (74-106)
[2024-05-26 20:43] LABS: BUN/Creatinine Ratio 8.2 (10.0-20.0)
[2024-05-26] MEDS: ALBUTEROL SULF 2.5 MG/0.5ML(0.5%) NEB SOLN NEB ONE (21:04)
[2024-05-26] MEDS: SODIUM BICARB 8.4% 50Meq/50ml SYR INJ IV ONE ×2 (21:10→22:45)
[2024-05-26] MEDS: APIXABAN 5 MG TAB PO SCH (21:19)
[2024-05-26 21:40] LABS: Blood Urea Nitrogen 99 mg/dL (9-23)
[2024-05-26] MEDS: FUROSEMIDE 40 MG/4 ML VIAL IV ONE (21:57)
[2024-05-26] MEDS: FUROSEMIDE 20 MG/2 ML VIAL IV ONE (22:45)
[2024-05-27] VITALS (8 sets, daily range): BP systolic 130–141; BP diastolic 76–91; PULSE 78–94; RESP 17–19; TEMP 97.6–98.5; O2SAT 95–100
[2024-05-27] MEDS: ALBUTEROL SULF 2.5 MG/0.5ML(0.5%) NEB SOLN NEB ONE (00:04)
[2024-05-27] MEDS: InsuLIN REG 1unit/0.01ml Soln (100units/ml) IV ONE (00:21)
[2024-05-27] MEDS: DEXTROSE (50%) 50ML SYRG IV ONE (00:27)
[2024-05-27 04:50] LABS: Basophils # (auto) 0.1 10 ^3/uL (0-0.2); Basophils % (auto) 0.6 % (0.0-2.0); Eosinophils # (auto) 0 10 ^3/uL (0-0.8); Eosinophils % (auto) 0.1 % (0.0-7.0); Hematocrit 29.6 % (41.0-53.0); Hemoglobin 10.3 g/dL (13.5-17.5); Lymphocytes # (auto) 0.8 10 ^3/uL (0.4-5.4); Lymphocytes % (auto) 9.4 % (10.0-50.0); Mean Corpuscular Hemoglobin 33.6 pg (28.0-32.0); Mean Corpuscular Hgb Conc. 34.6 g/dL (32.0-36.0); Mean Corpuscular Volume 97.1 fL (80.0-100.0); Monocytes # (auto) 0.6 10 ^3/uL (0-1.3); Monocytes % (auto) 6.6 % (0.0-12.0); Neutrophils # (auto) 7.3 10 ^3/uL (1.6-8.6); Neutrophils % (auto) 83.3 % (37.0-80.0); Platelet Count (auto) 199 10^3/uL (140-450); Red Blood Cells 3.05 10^6/uL (4.5-5.90); Red Cell Distribution Width 13.6 % (11.8-14.3); White Blood Cell 8.7 10^3/uL (4.4-10.8)
[2024-05-27 05:11] LABS: Anion Gap 20 (5-15); Carbon Dioxide 20 mmol/L (20-31); Chloride 93 mmol/L (98-107); Potassium 4.5 mmol/L (3.5-5.1); Sodium 133 mmol/L (136-145)
[2024-05-27 05:13] LABS: Calcium 9.1 mg/dL (8.7-10.4)
[2024-05-27 05:18] LABS: Glucose 110 mg/dL (74-106)
[2024-05-27 05:33] LABS: Blood Urea Nitrogen 99 mg/dL (9-23)
[2024-05-27] MEDS ORDERED: SODIUM CHL 0.9% 1000 ML BAG XX ONE (07:00)
[2024-05-27] MEDS ORDERED: SACUBITRIL-VALSARTAN 24mg/26mg TAB PO SCH (10:00)
[2024-05-27] MEDS ORDERED: AMIO200T13 PO (13:50)
[2024-05-27] MEDS ORDERED: APIX5TAB PO (13:50)
[2024-05-27] MEDS ORDERED: AZITTAB PO (13:51)
[2024-05-28 10:43] LABS: Hepatitis B Surface Antibody Positive (Negative)
[2024-05-28 10:53] LABS: Hepatitis B Surface Antigen Negative (Negative)
== END 2024-05-27 18:29 | disposition home or self-care (01) | DRG 194 ==
LOC: ER 01:28 → TELE 06:03 → TELE-WESTW 18:12
PROVIDERS: ADMIT Internal Medicine; ATTEND Internal Medicine
PROC: 5A2204Z Restoration of Cardiac Rhythm, Single (ICD-10-PCS; principal; 2024-05-25)
PROC: 5A1D70Z Performance of Urinary Filtration, Intermittent, Less than 6 Hours Per Day (ICD-10-PCS; 2024-05-25)
PROC: 5A1D70Z Performance of Urinary Filtration, Intermittent, Less than 6 Hours Per Day (ICD-10-PCS; 2024-05-27)
DX: I13.2 Hypertensive heart and chronic kidney disease with heart failure and with stage 5 chronic kidney disease, or end stage renal disease (principal); G93.41 Metabolic encephalopathy; I21.A1 Myocardial infarction type 2; E87.20 Acidosis, unspecified; E87.3 Alkalosis; N18.6 End stage renal disease; Z20.822 Contact with and (suspected) exposure to COVID-19; F17.210 Nicotine dependence, cigarettes, uncomplicated; E87.5 Hyperkalemia; J44.9 Chronic obstructive pulmonary disease, unspecified; K80.20 Calculus of gallbladder without cholecystitis without obstruction; F15.10 Other stimulant abuse, uncomplicated; E78.5 Hyperlipidemia, unspecified; F41.9 Anxiety disorder, unspecified; Z83.3 Family history of diabetes mellitus; Z82.49 Family history of ischemic heart disease and other diseases of the circulatory system; Z91.199 Patient's noncompliance with other medical treatment and regimen due to unspecified reason; Z99.2 Dependence on renal dialysis; I48.20 Chronic atrial fibrillation, unspecified; I50.23 Acute on chronic systolic (congestive) heart failure
CPT/HCPCS: 36415; 36600; 71045; 71275; 80048; 80053; 80061; 81001; 82805; 82962; 83036; 83735; 83880; 84100; 84132; 84443; 84484; 85025; 85379; 86706; 87081; 87340; 87426; 87804; 90935; 92960; 93005; 93306; 93970; 94640; 94644; G0378; J1642; J1815

== ENCOUNTER 2024-11-09 13:53 | Inpatient (IN) | payer MEDICAID ==
[~2024-11-09] VITALS: Ht 177.8 cm; Wt 96.7 kg
[~2024-11-09 13:53] MED LIST changes: +AMIO200T13 PO; -AMLO1TAB22 PO; +APIX5TAB PO; +B-CO-6 PO
[2024-11-09 14:00] VITALS: PULSE 93; RESP 21; O2SAT 93
--- NOTE | 2024-11-09 14:00 | ECG ---
[facility] Test Date: 2024-11-09 Test Time: 13:58:49 Pat Name: MESSI CROWDER Department: ED Room: 0297 Gender: M Anesthesia Assistant: PATRICIA : 1965 Requested By: WAYLON GALINDO Order Number: [id number] Reading MD: Mckay Evans Measurements Intervals [place] Rate: 91 P: 28 DE: 166 QRS: 19 QRSD: 110 T: 123 QT: 381 QTc: 469 Interpretive Statements Sinus rhythm LVH with IVCD and secondary repol abnrm Baseline wander in lead(s) V3,V4,V6 Electronically Signed On 11-12-2024 13:24:06 PDT by Mckay Evans Please click the below link to view image of tracing.
--- NOTE | 2024-11-09 14:04 | ED.PDOC ---
SOB-HPI HPI Comments 59 y.o male with PMHx of COPD, CHF, HTN and ESRD, presents to the ED via EMS for a chief complaint of SOB that started last night. EMS reports patient was at the [facility] today when staff called 911 d/t progressively worsening SOB. Patient is on dialysis Saturday, Saturday, Saturday and has not missed any sessions. EMS also mentions patient had very little taken out today, last week was about 10 liters but today was only 800ml. Patient was placed on oxygen at the facility, no original SPO2 on RA was recorded. Patient arrives with 4 liters of oxygen via NC placed by EMS, saturating at 95%. Patient denies any chest pains, cough, fever, chills, nausea, vomiting, diarrhea, swelling. Patient admits to methamphetamine use 2 days ago. Time Seen by MD: 13:54 Primary Care Provider: Nura Kenyon notes: Nurses Notes, Warehouse Pricing And Inventory Clerk Notes, Medications, Allergies Information Source: Patient, Emergency Med Personnel Mode of Arrival: EMS Severity: Moderate Timing: Hours Duration: Since onset Context: At Rest PE Risk Factors: None History of: COPD, CHF Prehospital treatment: 12 Lead EKG, Accucheck (81), Director Targeted Marketing, Oxygen (4 liters via NC) Modifying Factors: Nothing Associated Signs and Symptoms: None Past Medical History PAST MEDICAL HISTORY: CHF, COPD, ESRD, HTN Surgical History (Other): catheter rigth upper chest Family History Family History: Family hx of DM Social History Smoker: Cigarettes, Less Than 1 Pack/Day Alcohol: Denies ETOH Use Drugs: Methamphetamine Lives In: Home Constitutional: denies: chills, diaphoresis, fatigue, fever, malaise, sweats, weakness, others EENTM: denies: blurred vision, double vision, ear bleeding, ear discharge, ear drainage, ear pain, ear ringing, eye pain, eye redness, hearing loss, mouth pain, mouth swelling, nasal discharge, nose bleeding, nose congestion, nose pain, photophobia, tearing, throat pain, throat swelling, voice changes, others Respiratory: reports: SOB at rest, shortness of breath, SOB with excertion; denies: cough, hemoptysis, orthopnea, stridor, wheezing, others Cardiovascular: denies: chest pain, dizzy spells, diaphoresis, Dyspnea on exertion, edema, irregular heart beat, left arm pain, lightheadedness, palpitations, PND, syncope, others Gastrointestinal: denies: abdomen distended, abdominal pain, blood streaked bowels, constipated, diarrhea, dysphagia, difficulty swallowing, hematemesis, melena, nausea, poor appetite, poor fluid intake, rectal bleeding, rectal pain, vomiting, others Genitourinary: denies: burning, dysuria, flank pain, frequency, hematuria, incontinence, penile discharge, penile sore, pain, testicle pain, testicle swelling, urgency, others Neurological: denies: dizziness, fainting, headache, left sided numbness, left sided weakness, numbness, paresthesia, pre-existing deficit, right sided numbness, right sided weakness, seizure, speech problems, tingling, tremors, weakness, others Musculoskeletal: denies: back pain, gout, joint pain, joint swelling, muscle pain, muscle stiffness, neck pain, others Integumetry: denies: bruises, change in color, change in hair/nails, dryness, laceration, lesions, lumps, rash, wounds, others Allergic/Immunocompromised: denies: Difficulty Healing, Frequent Infections, Hives, Itching, others Hematologic/Lymphatic: denies: anemia, blood clots, easy bleeding, easy bruising, swollen glands, others Endocrine: denies: excessive hunger, excessive sweating, excessive thirst, excessive urination, flushing, intolerance to cold, intolerance to heat, unexplained weight gain, unexplained weight loss, others Psychiatric: denies: anxiety, bipolar disorder, depression, hopeless, panic disorder, schizophrenia, sleepless, suicidal, others All Other Systems: Reviewed and Negative Physical Exam General Appearance: Moderate Distress HEENT: Normal ENT Inspection, Pharynx Normal, TMs Normal Neck: Full Range of Motion, Non-Tender, Normal, Normal Inspection Respiratory: Chest Non-Tender, No Accessory Muscle Use, Rales Cardiovascular: No Edema, No JVD, No Murmur, No Gallop, Normal Peripheral Pulses, Regular Rate/Rhythm Breast Exam: Deferred Gastrointestinal: No Organomegaly, Non Tender, No Pulsatile Mass, Normal Bowel Sounds, Soft Genitalia: Deferred Pelvic: Deferred Rectal: Deferred Extremities: No calf tenderness, Normal capillary refill, Normal inspection, Normal range of motion, Non-tender, No pedal edema Musculoskeletal : Apperance: Normal Neurologic: Alert, instructor looping II-XII nml as Tested, No Motor Deficits, Normal Affect, Normal Mood, No Sensory Deficits Cerebellar Function: Normal Reflexes: Normal Skin: Dry, Normal Color, Warm, Other (Aguilar catheter to the right chest) Lymphatic: No Adenopathy EKG EKG : Pulse Rate (adult): 91 Cardiac Rhythm: NSR Hypertrophy: LVH Was a procedure done? Was a procedure done?: No Differential Dx Differential Diagnosis: Bronchitis, CHF, COPD, Hyperventilation, Pneumonia, Respiratory Distress, URI X-Ray, Labs, Meds, VS Vital Signs Date Time Temp Pulse Resp B/P (MAP) Pulse Ox O2 Delivery O2 Flow Rate FiO2 11/09/24 14:04 91 11/09/24 14:00 98.9 93 21 127/80 (96) 93 98.9 11/09/24 14:00 93 21 93 Nasal Cannula* 4 36 11/09/24 14:00 99.1 92 24 130/79 (96) 95 99.1 11/09/24 13:58 91 Lab Test 11/09/24 15:27 11/09/24 14:39 Range/Units Troponin I High Sensitivity 157 *H 211 *H </=54 ng/L White Blood Count 11.7 H 4.4-10.8 10^3/uL Red Blood Count 3.15 L 4.5-5.90 10^6/uL Hemoglobin 9.8 L 13.5-17.5 g/dL Hematocrit 29.5 L 41.0-53.0 % Mean Corpuscular Volume 93.9 80.0-100.0 fL Mean Corpuscular Hemoglobin 31.2 28.0-32.0 pg Mean Corpuscular Hemoglobin Concent 33.2 32.0-36.0 g/dL Red Cell Distribution Width 17.5 H 11.8-14.3 % Platelet Count 144 140-450 10^3/uL Mean Platelet Volume 8.7 6.9-10.8 fL Neutrophils (%) (Auto) 86.5 H 37.0-80.0 % Lymphocytes (%) (Auto) 4.4 L 10.0-50.0 % Monocytes (%) (Auto) 7.6 0.0-12.0 % Eosinophils (%) (Auto) 0.8 0.0-7.0 % Basophils (%) (Auto) 0.7 0.0-2.0 % Neutrophils # (Auto) 10.1 H 1.6-8.6 10 ^3/uL Lymphocytes # (Auto) 0.5 0.4-5.4 10 ^3/uL Monocytes # (Auto) 0.9 0-1.3 10 ^3/uL Eosinophils # (Auto) 0.1 0-0.8 10 ^3/uL Basophils # (Auto) 0.1 0-0.2 10 ^3/uL Nucleated Red Blood Cells 0.1 % Sodium Level 137 136-145 mmol/L Potassium Level 4.7 3.5-5.1 mmol/L Chloride Level 96 L 98-107 mmol/L Carbon Dioxide Level 24 20-31 mmol/L Anion Gap 17 H 5-15 Blood Urea Nitrogen 70 H 9-23 mg/dL Creatinine 9.34 H 0.700-1.30 mg/dL Glomerular Filtration Rate Calc 6 >90 mL/min BUN/Creatinine Ratio 7.5 L 10.0-20.0 Serum Glucose 74 74-106 mg/dL Calcium Level 9.2 8.7-10.4 mg/dL B-Type Natriuretic Peptide 2565.76 0-100 pg/mL The chest x-ray shows: IMPRESSION: Multifocal airspace disease and/or pulmonary vascular congestion. IV Hep-Lock was established The patient was 1st troponin level came in at 211 The repeat troponin came back at 157 The CBC shows anemia with a hemoglobin of 9.8 and hematocrit 29.5 The chemistry panel is within normal limits except for BUN of 70 and a creatinine of 9.34 The chloride is 96 The BNP is elevated at 2565.76 At this time, the patient was being admitted to the hospitalist Images Reviewed?: Images reviewed and evaluated by me Time of 1ST Reevaluation: 13:57 Reevaluation 1ST: Unchanged Patient Education/Counseling: Diagnosis, Treatment, Prognosis Family Education/Counseling: No Family Present Departure 1 Departure Time of Disposition: 16:21 Impression: Primary Impression: Acute hypoxic respiratory failure Additional Impressions: ESRD needing dialysis Pulmonary edema Qualified Codes: J81.0 - Acute pulmonary edema Elevated troponin Disposition: ADMITTED INPATIENT Admit to: Tele Condition: Fair Critical Care Note Critical Care Time?: Yes (45 min-critical care time only) Stability Stability form required: Yes Unstable for transfer: Telemetry monitoring (Telemetry monitoring required), ED Physician Assesment (Clinical assesment) I personally scribed for WAYLON GALINDO MD ([email or web address]) on 11/09/24 at 14:04. Electronically submitted by Nora Felton ([facility]). WAYLON GALINDO MD Nov 09, 2024 14:04
[2024-11-09 14:58] LABS: Basophils # (auto) 0.1 10 ^3/uL (0-0.2); Basophils % (auto) 0.7 % (0.0-2.0); Eosinophils # (auto) 0.1 10 ^3/uL (0-0.8); Eosinophils % (auto) 0.8 % (0.0-7.0); Hematocrit 29.5 % (41.0-53.0); Hemoglobin 9.8 g/dL (13.5-17.5); Lymphocytes # (auto) 0.5 10 ^3/uL (0.4-5.4); Lymphocytes % (auto) 4.4 % (10.0-50.0); Mean Corpuscular Hemoglobin 31.2 pg (28.0-32.0); Mean Corpuscular Hgb Conc. 33.2 g/dL (32.0-36.0); Mean Corpuscular Volume 93.9 fL (80.0-100.0); Monocytes # (auto) 0.9 10 ^3/uL (0-1.3); Monocytes % (auto) 7.6 % (0.0-12.0); Neutrophils # (auto) 10.1 10 ^3/uL (1.6-8.6); Neutrophils % (auto) 86.5 % (37.0-80.0); Nucleated Red Blood Cells % 0.1 %; Platelet Count (auto) 144 10^3/uL (140-450); Red Blood Cells 3.15 10^6/uL (4.5-5.90); Red Cell Distribution Width 17.5 % (11.8-14.3); White Blood Cell 11.7 10^3/uL (4.4-10.8)
[2024-11-09 15:02] LABS: Potassium 4.7 mmol/L (3.5-5.1); Sodium 137 mmol/L (136-145)
[2024-11-09 15:03] LABS: Anion Gap 17 (5-15); Carbon Dioxide 24 mmol/L (20-31)
[2024-11-09 15:04] LABS: Calcium 9.2 mg/dL (8.7-10.4)
[2024-11-09 15:08] LABS: BUN/Creatinine Ratio 7.5 (10.0-20.0)
[2024-11-09 15:09] LABS: Blood Urea Nitrogen 70 mg/dL (9-23); Chloride 96 mmol/L (98-107); Glucose 74 mg/dL (74-106)
--- NOTE | 2024-11-09 15:51 | DVH ---
CHEST RADIOGRAPH Indication: sob Technique: Single frontal view of the chest was obtained COMPARISON: XY CHEST PORTABLE on DOS: 05/25/24, XY CHEST PORTABLE on DOS: 09/23/23, XY CHEST PORTABLE on DOS: 09/22/23, XY CHEST PORTABLE on DOS: 06/10/23, XY CHEST PORTABLE on DOS: 06/02/23 FINDINGS: Lines and Tubes: Tunneled right central venous catheter in satisfactory position. Lungs: Multifocal airspace disease. Pleura: No effusion. No pneumothorax. Cardiomediastinal contours: Cardiomegaly Bones: Unremarkable IMPRESSION: Multifocal airspace disease and/or pulmonary vascular congestion.
[2024-11-09] MEDS: methylPREDNISolone SOD SUCC 125 MG/2 ML VL IV ONE (16:49)
[2024-11-09] MEDS ORDERED: hydrALAZINE HCL 20 MG/ML VL IV PRN (17:45)
[2024-11-09] MEDS ORDERED: NITROGLYCERIN 0.4 MG SL TAB SL PRN (17:45)
[2024-11-09] MEDS ORDERED: HYDROcodone-ACET 5/325MG TAB PO PRN (17:45)
[2024-11-09] MEDS ORDERED: ACETAMINOPHEN 325 MG TAB PO PRN (17:45)
[2024-11-09] MEDS ORDERED: DOCUSATE SOD 100 MG CAP PO PRN (17:45)
[2024-11-09] MEDS ORDERED: MORPHINE SULFATE INJ 2 MG/ml SYRG IV PRN (17:45)
--- NOTE | 2024-11-09 17:55 | DVHHP2 ---
History of Present Illness Reason for Visit: Acute hypoxic respiratory failure History of Present Illness The patient is a 59-year-old male with past medical history of COPD, CHF, ESRD on hemodialysis M-W-, and hypertension who presented to [facility] ED with complaint of shortness of breaths. Patient reports symptoms progressively get worse with generalized weakness, fatigue, increased work of breathing, getting worse that prompted this visit. Patient was seen and evaluated in the ED, laboratory data shows WBC 11.7, hemoglobin 9.8, hematocrit 29.5, platelets 144, sodium 137, potassium 4.7, BUN 70, creatinine 9.34, GFR 6, glucose 74, calcium 9.2, troponin 211, BNP 2565.76. Chest x-ray revealing multifocal airspace disease and/or pulmonary vascular congestion. Patient will receive hemodialysis, being followed by Nephrology. Please see medication orders section in the computer. On my assessment, patient denied chest pain, no headache, no dizziness, no diaphoresis, currently on oxygen, no abdominal pain, no diarrhea, no nausea, no vomiting, no fever, no chills. Patient was admitted for further evaluation and medical management. Past Medical History CHF, COPD, ESRD, HTN Past Surgical History Catheter right upper chest for hemodialysis Family History Reviewed, noncontributory to the management of this case. Past Social History Patient lives at home, smokes cigarettes less than 1 pack per day, denies alcohol use, uses methamphetamine. Review of Systems Constitutional: Yes: Weakness, Other (Fatigue); No: Fever, Chills, Sweats, Malaise Eyes: No: Pain, Vision change, Conjunctivae inflammation, Eyelid inflammation, Other, Redness ENT: No: Ear pain, Ear discharge, Nose pain, Nose discharge, Nose congestion, Mouth pain, Mouth swelling, Throat pain, Throat swelling, Other Respiratory: Shortness of breath, SOB with excertion, Other (SOB at rest); No: Cough, Dry, Wheezing, Hemoptysis, Pleuritic Pain, Sputum, Wheezing Cardiovascular: No: Chest Pain, Palpitations, Orthopnea, Paroxysmal Noc. Dyspnea, Edema, Lt Headedness, Other Gastrointestinal: No: Nausea, Vomiting, Abdominal Pain, Diarrhea, Constipation, Melena, Hematochezia, Other Genitourinary: No Dysuria, No Frequency, No Incontinence, No Hematuria, No Retention, No Other Musculoskeletal: No: other, neck pain, shoulder pain, arm pain, back pain, hand pain, leg pain, foot pain Skin: No: Rash, Lesions, Jaundice, Bruising, Other Neurological: No: Weakness, Numbness, Incoordination, Change in speech, Confusion, Seizures, Other Allergies: Coded Allergies: NO KNOWN ALLERGIES (Unverified , 05/13/23) Medications Current Medications Medications Dose Ordered Sig/Sandor Route Start Time Stop Time Status Last Admin Dose Admin Famotidine 20 mg Q12HR IV 11/09/24 22:00 UNV Methylprednisolone Sodium Succinate 40 mg Q8HR IV 11/09/24 22:00 UNV Sevelamer HCl 800 mg TIDWM PO 11/09/24 18:00 UNV Multivit/Ca Carb/ B Cmplx/FA/Prenat 1 tab DAILY PO 11/10/24 10:00 UNV Aspirin 81 mg DAILY PO 11/10/24 10:00 UNV Carvedilol 12.5 mg Q12HR PO 11/09/24 22:00 UNV Exam Vital Signs Vital Signs Date Time Temp Pulse Resp B/P (MAP) Pulse Ox O2 Delivery O2 Flow Rate FiO2 11/09/24 14:04 91 11/09/24 14:00 98.9 21 127/80 (96) 93 98.9 11/09/24 14:00 Nasal Cannula* 4 36 General Appearance: Alert, Oriented X3, Cooperative, No acute distress HEENT: Atraumatic, PERRLA, EOMI, Mucous membr. moist/pink Respiratory: Normal air movement, Other (Diminished breath sounds) Cardiovascular: Regular rate, Normal S1, Normal S2, No murmurs Abdominal: Normal bowel sounds, Soft, No tenderness, No hepatospenomegaly, No masses Extremities: No clubbing, No cyanosis, No edema, Normal pulses, No tenderness/swelling Skin: No rashes, No breakdown, No significant lesion Neuro: Normal speech, Normal tone, Sensation intact, Cranial nerves 3-12 NL, Reflexes 2+, Other (Generalized weakness) Psych/Mental Status: Mental status NL, Mood NL Labs/Xrays Labs Test 11/09/24 15:27 11/09/24 14:39 Range/Units Troponin I High Sensitivity 157 *H </=54 ng/L White Blood Count 11.7 H 4.4-10.8 10^3/uL Red Blood Count 3.15 L 4.5-5.90 10^6/uL Hemoglobin 9.8 L 13.5-17.5 g/dL Hematocrit 29.5 L 41.0-53.0 % Mean Corpuscular Volume 93.9 80.0-100.0 fL Mean Corpuscular Hemoglobin 31.2 28.0-32.0 pg Mean Corpuscular Hemoglobin Concent 33.2 32.0-36.0 g/dL Red Cell Distribution Width 17.5 H 11.8-14.3 % Platelet Count 144 140-450 10^3/uL Mean Platelet Volume 8.7 6.9-10.8 fL Neutrophils (%) (Auto) 86.5 H 37.0-80.0 % Lymphocytes (%) (Auto) 4.4 L 10.0-50.0 % Monocytes (%) (Auto) 7.6 0.0-12.0 % Eosinophils (%) (Auto) 0.8 0.0-7.0 % Basophils (%) (Auto) 0.7 0.0-2.0 % Neutrophils # (Auto) 10.1 H 1.6-8.6 10 ^3/uL Lymphocytes # (Auto) 0.5 0.4-5.4 10 ^3/uL Monocytes # (Auto) 0.9 0-1.3 10 ^3/uL Eosinophils # (Auto) 0.1 0-0.8 10 ^3/uL Basophils # (Auto) 0.1 0-0.2 10 ^3/uL Nucleated Red Blood Cells 0.1 % Sodium Level 137 136-145 mmol/L Potassium Level 4.7 3.5-5.1 mmol/L Chloride Level 96 L 98-107 mmol/L Carbon Dioxide Level 24 20-31 mmol/L Anion Gap 17 H 5-15 Blood Urea Nitrogen 70 H 9-23 mg/dL Creatinine 9.34 H 0.700-1.30 mg/dL Glomerular Filtration Rate Calc 6 >90 mL/min BUN/Creatinine Ratio 7.5 L 10.0-20.0 Serum Glucose 74 74-106 mg/dL Calcium Level 9.2 8.7-10.4 mg/dL B-Type Natriuretic Peptide 2565.76 0-100 pg/mL PATIENT: MESSI CROWDER YUSRAACCT: [id number] UNIT: [id number] : 1965 LOC: ER ROOM / BED: / AGE / SEX: 59 / M ADM STATUS: REG ER SERVICE [id number] ORDERING PHYSICIAN: WAYLON GALINDO MD PROCEDURE(s): CXRP - CHEST PORTABLE REASON: sob ORDER NUMBER(s): [id number], ACCESSION NUMBER(s): [id number] CHEST RADIOGRAPH Indication: sob Technique: Single frontal view of the chest was obtained COMPARISON: XY CHEST PORTABLE on DOS: 05/25/24, XY CHEST PORTABLE on DOS: 09/23/23, XY CHEST PORTABLE on DOS: 09/22/23, XY CHEST PORTABLE on DOS: 06/10/23, XY CHEST PORTABLE on DOS: 06/02/23 FINDINGS: Lines and Tubes: Tunneled right central venous catheter in satisfactory position. Lungs: Multifocal airspace disease. Pleura: No effusion. No pneumothorax. Cardiomediastinal contours: Cardiomegaly Bones: Unremarkable IMPRESSION: Multifocal airspace disease and/or pulmonary vascular congestion. Assessment/Plan Assessment/Plan Acute hypoxic respiratory failure Elevated troponin ESRD needing dialysis Pulmonary edema Acute pulmonary edema Generalized weakness Leukocytosis, unspecified Acute on chronic systolic heart failure Plan 1. Admit to telemetry unit 2. Breathing treatment 3. Pain control management 4. Management of fluids and electrolytes 5. Consultation for Nephrology 6. Diagnostic tests chest x-ray 7. DVT prophylaxis-on aspirin 8. Repeat labs CBC, CMP in a.m. 9. Continue with current medical management 10. Treatment plan discussed with patient and RN. Patient verbalized understandi ng. Plan discussed with: Patient, Other (RN) My Orders Orders - LEV GUERRERO DNP Procedure Category Date Status Time Famotidine Injection PHA 11/09/24 Transmitted (Pepcid Injection) 22:00 Methylprednisolone PHA 11/09/24 Transmitted Sod Succ (Solu Medrol 22:00 Sevelamer (Renagel) PHA 11/09/24 Transmitted 18:00 B-Complex W/ C & PHA 11/10/24 Transmitted Folic Tablet 10:00 Aspirin Tablet PHA 11/10/24 Transmitted 10:00 Aspirin Tablet PHA 11/09/24 Transmitted 17:45 Carvedilol Tablet PHA 11/09/24 Transmitted (Coreg Tablet) 22:00 Atorvastatin (Lipitor) PHA 11/09/24 Transmitted 22:00 Hydralazine Injection PHA 11/09/24 Transmitted (Apresoline Inject 17:45 Bumetanide Injection PHA 11/09/24 Transmitted (Bumex Injection) 17:45 Bumetanide Injection PHA 11/10/24 Transmitted (Bumex Injection) 10:00 Admit ADMIT 11/09/24 Transmitted 17:38 Allergies HARJINDER 11/09/24 Transmitted 17:38 Code Status CODE 11/09/24 Transmitted 17:38 Renal DIET 11/09/24 Transmitted Standard(2gna,3gk,Lopho) Dinner Sodium Chloride Lock PHA 11/09/24 Transmitted (Saline Lock Ns) 22:00 Oxygen Per Hour RT 11/09/24 Transmitted 17:38 Hydrocodone-Acet PHA 11/09/24 Transmitted 5/325mg Tab ([place] 17:45 Ondansetron Hcl PHA 11/09/24 Transmitted (Zofran) 17:45 Docusate Sodium PHA 11/09/24 Transmitted Capsule (Colace 17:45 Complete Blood Count LAB 11/10/24 Verified 04:00 Comprehensive LAB 11/10/24 Verified Metabolic Panel 04:00 Echo 2d Mode Cardiac US 11/09/24 Logged DOP 17:38 Condition: Serious [facility] 11/09/24 Transmitted 17:38 Acetaminophen Tablet [facility] 11/09/24 Transmitted (Tylenol Tablet) 17:45 Bedrest With Bathroom [facility] 11/09/24 Transmitted Privileg 17:38 Sequential [facility] 11/09/24 Transmitted Compression Device Nitroglycerin [facility] 11/09/24 Transmitted Sublingual (Ntrostat 17:45 Morphine Sulfate PHA 11/09/24 Transmitted Injection 17:45 Stat Ekg For Chest [facility] 11/09/24 Transmitted Pain 17:38 Notify Of Changes [facility] 11/09/24 Transmitted From Base 17:38 Business Support Coordinator For [facility] 11/09/24 Transmitted 24 Hours 17:38 Emergency Dysrhythmia [facility] 11/09/24 Transmitted Protocol 17:38 Rhythm Strips Once [facility] 11/09/24 Transmitted Every Shift 17:38 Oxygen By Nasal RT 11/09/24 Transmitted Cannula 17:38 Problem List: (1) Acute hypoxic respiratory failure (2) ESRD needing dialysis (3) Elevated troponin (4) Pulmonary edema (5) Generalized weakness (6) Acute pulmonary edema (7) Leukocytosis, unspecified (8) Acute on chronic systolic heart failure Date of Service: Nov 09, 2024 Billing Provider: LEV GUERRERO DNP Common Visit Codes: [id number] INP/OBS CARE (HIGH) LEV GUERRERO DNP Nov 09, 2024 17:55
[2024-11-09] MEDS: SEVELAMER 800 MG TAB PO SCH (18:00)
[2024-11-09] MEDS: ASPirin 81 mg TAB PO ONE (18:37)
[2024-11-09] MEDS: BUMETANIDE 2.5mg/10ml (0.25 mg/ml) INJ IV ONE (18:38)
[2024-11-09 20:15] VITALS: PULSE 79; O2SAT 91
[2024-11-09 21:10] VITALS: BP 107/75; PULSE 79; RESP 16; TEMP 98.2; O2SAT 90
[2024-11-09] MEDS: FAMOTIDINE (10MG/ML) 2ML VL IV SCH (22:57)
[2024-11-09] MEDS: methylPREDNISolone SOD SUCC 40 MG/ML VL IV SCH (22:58)
[2024-11-09] MEDS: SODIUM CHLOR 0.9% PF (SALINE LOCK) 10ML VIAL/SYR IV SCH (22:58)
[2024-11-09] MEDS: ATORVASTATIN 20 MG TAB PO SCH (23:00)
[2024-11-09] MEDS: CARVEDILOL 12.5 MG TAB PO SCH (23:02)
[2024-11-10] VITALS (8 sets, daily range): BP systolic 99–129; BP diastolic 61–80; PULSE 66–85; RESP 16–20; TEMP 97.5–98.2; O2SAT 89–99
[2024-11-10 08:03] LABS: Basophils # (auto) 0 10 ^3/uL (0-0.2); Basophils % (auto) 0.2 % (0.0-2.0); Eosinophils # (auto) 0 10 ^3/uL (0-0.8); Eosinophils % (auto) 0.1 % (0.0-7.0); Hematocrit 30.5 % (41.0-53.0); Lymphocytes # (auto) 0.3 10 ^3/uL (0.4-5.4); Lymphocytes % (auto) 8.1 % (10.0-50.0); Mean Corpuscular Hemoglobin 31.4 pg (28.0-32.0); Mean Corpuscular Hgb Conc. 32.6 g/dL (32.0-36.0); Mean Corpuscular Volume 96.2 fL (80.0-100.0); Monocytes # (auto) 0.1 10 ^3/uL (0-1.3); Monocytes % (auto) 2.1 % (0.0-12.0); Neutrophils # (auto) 3.5 10 ^3/uL (1.6-8.6); Neutrophils % (auto) 89.5 % (37.0-80.0); Nucleated Red Blood Cells % 0.1 %; Platelet Count (auto) 129 10^3/uL (140-450); Red Blood Cells 3.17 10^6/uL (4.5-5.90); Red Cell Distribution Width 16.6 % (11.8-14.3); White Blood Cell 3.9 10^3/uL (4.4-10.8)
[2024-11-10 08:06] LABS: Alanine Aminotransferase 14 U/L (7-40); Alkaline Phosphatase 85 U/L (46-116); Anion Gap 19 (5-15); BUN/Creatinine Ratio 6.9 (10.0-20.0); Calcium 8.9 mg/dL (8.7-10.4)
[2024-11-10 08:07] LABS: Albumin 4.2 g/dL (3.2-4.8)
[2024-11-10 08:08] LABS: Aspartate Aminotransferase < 8 U/L (13-40); Bilirubin, Total 0.4 mg/dL (0.2-1.0); Blood Urea Nitrogen 74 mg/dL (9-23); Carbon Dioxide 20 mmol/L (20-31); Chloride 95 mmol/L (98-107); Glucose 128 mg/dL (74-106); Potassium 5.1 mmol/L (3.5-5.1); Sodium 134 mmol/L (136-145)
[2024-11-10] MEDS: cefTRIAXone 1GM/50ML D5W 50 ML IV SCH (10:10)
[2024-11-10] MEDS: DOXYCYCLINE 100MG/100ML 100 ML IV SCH (10:14)
[2024-11-10] MEDS: ASPirin 81 mg TAB PO SCH (10:15)
[2024-11-10] MEDS: B-COMPLEX W/ C & FOLIC ACID(NEPHROVITE TAB) PO SCH (10:16)
[2024-11-10] MEDS: BUMETANIDE 2.5mg/10ml (0.25 mg/ml) INJ IV SCH (10:16)
[2024-11-10 10:18] LABS: INR 1.06 (0.9-1.15); Partial Thromboplastin Time 28.8 SEC (24.5-34.5); Prothrombin Time 11.2 sec (9.3-11.8)
[2024-11-10 11:19] LABS: Triglycerides 98 mg/dL (< 150)
[2024-11-10 11:20] LABS: Magnesium 2.4 mg/dL (1.6-2.6)
[2024-11-10 11:21] LABS: Cholesterol 196 mg/dL (< 200); HDL Cholesterol 57 mg/dL (40-59)
[2024-11-10 11:22] LABS: Blood Alcohol < 3.0 mg/dL (<10); LDL Cholesterol 113 mg/dL (< 100)
[2024-11-10] MEDS ORDERED: hydrALAZINE HCL 20 MG/ML VL IV PRN (11:45)
--- NOTE | 2024-11-10 14:13 | DVHPNRES ---
Progress Note Date Seen: Nov 10, 2024 Resident Creating Document: ALLA MARRERO RESIDENT Medical Necessity Reason Pt with a Central, PICC or Fol: No Subjective Review of Systems Marine Justen Hooks is a 59-year-old male with a PMH of COPD, CHF, ESRD, HTN presented to the ED with the chief complaints of shortness of breath which started on the day of admission. Patient reported yesterday he went to dialysis unit for the dialysis that he started having shortness of breath, fever and fluctuation in blood pressure, called EMS and arrived to ED. patient reported he has been having cough for 1 month which is dry. On my assessment patient denies sick contacts, recent travel, chest pain, abdominal pain and other associated symptoms. PMH: CHF, COPD, ESRD, HTN PSH: Catheter right upper chest for hemodialysis Family history: Noncontributory Social history: Patient lives at home, smokes cigarettes less than 1 pack per day, denies alcohol use, uses methamphetamine. Allergies: No known allergies Patient seen and examined at the bedside. patient is currently on 2 L oxygen [place]. Still complaining of mild shortness of breath but no new complaints. Continuing GDM T as tolerated. Objective vital signs Vital Sign Date Time Temp Pulse Resp B/P (MAP) Pulse Ox O2 Delivery O2 Flow Rate FiO2 11/10/24 11:20 76 129/78 11/10/24 09:00 98.0 20 99 98.0 11/09/24 20:15 Room Air* 0 21 Total Intake and Output 11/09/24 11/09/24 11/10/24 15:00 23:00 07:00 Intake Total 500 ml Balance 500 ml medications Current Medications Medications Dose Ordered Sig/Sandor Route Start Time Stop Time Status Last Admin Dose Admin Famotidine 20 mg Q48H IV 11/09/24 22:00 11/09/24 22:57 20 MG Methylprednisolone Sodium Succinate 40 mg Q8HR IV 11/09/24 22:00 11/10/24 06:26 40 MG Sevelamer HCl 800 mg TIDWM PO 11/09/24 18:00 11/10/24 11:50 800 MG Multivit/Ca Carb/ B Cmplx/FA/Prenat 1 tab DAILY PO 11/10/24 10:00 11/10/24 10:16 1 TAB Aspirin 81 mg DAILY PO 11/10/24 10:00 11/10/24 10:15 81 MG Carvedilol 12.5 mg Q12HR PO 11/09/24 22:00 11/10/24 10:15 12.5 MG Atorvastatin Calcium 20 mg HS PO 11/09/24 22:00 11/09/24 23:00 20 MG Bumetanide 2.5 mg DAILY IV 11/10/24 10:00 11/10/24 10:16 2.5 MG Sodium Chloride 10 ml Q8HR IV 11/09/24 22:00 11/10/24 06:26 10 ML Acetaminophen/ Hydrocodone Bitart 1 tab Q4HP PRN PO 11/09/24 17:45 Ondansetron HCl 4 mg Q4HP PRN IV 11/09/24 17:45 Docusate Sodium 100 mg BIDPRN PRN PO 11/09/24 17:45 Acetaminophen 650 mg Q6HP PRN PO 11/09/24 17:45 Nitroglycerin 0.4 mg Q5MINP PRN SL 11/09/24 17:45 Morphine Sulfate 2 mg Q30M PRN IV 11/09/24 17:45 Ceftriaxone Sodium 50 ml @ 100 mls/hr DAILY@09 IV 11/10/24 09:00 11/10/24 10:10 100 MLS/HR Doxycycline Hyclate 100 ml @ 50 mls/hr Q12H IV 11/10/24 08:30 11/10/24 10:14 50 MLS/HR Hydralazine HCl 10 mg Q6HP PRN IV 11/10/24 11:45 Guaifenesin/ Dextromethorphan 10 ml Q4HP PRN PO 11/10/24 13:15 Examination Pt is lying on bed General Appearance: Alert, Oriented X3, Cooperative, Not in acute distress HEENT: Atraumatic, Mucous membranes moist/pink Respiratory: wheeze and crackels Cardiovascular: Regular rate, Normal S1, Normal S2, systolic murmurs Abdominal: Active bowel sounds, Soft, no distention, no tenderness Extremities: No edema, Normal pulses, No tenderness/swelling Skin: Dialysis catheter left chest. No Significant rash, except past surgical scars Neuro: Normal speech, sensorimotor deficits none Psych/Mental Status: Mental status NL, Mood NL Nurse was there as sharperone during examination laboratory and microbiology Laboratory Tests 11/10/24 07:15 Test 11/10/24 07:15 Range/Units Serum Glucose 128 H 74-106 mg/dL Labs and/or images reviewed: Labs reviewed by me, Image(s) reviewed by me Problem List/Assessment/Plan Problem List/Assessment/Plan # Acute hypoxic respiratory failure likely from CHF versus pneumonia # Acute on chronic systolic vs diastolic CHF # NSTEMI II demand mediated - on 2 L oxygen [place] - elevated BNP - strict I&O - fluid restriction - GDM T tolerated Coreg, bumetanide - new echocardiogram - CXR showed congestion - Lipitor, aspirin # ? Sepsis # COPD exacerbation # acute G+/- bacterial PNA - evident on CXR - started on Rocephin and doxycycline - ordered respiratory cultures - breathing treatments - Solu-Medrol # ESRD on HD MWF - consulted nephrology for continuity of care - resume home meds Protonix not need SCDs Renal diet Goals of care discussed with the patient for more than 29 minutes: Full code status Case discussed with Dr. Johnston, patient and nurse Plan discussed with: Patient My Orders My Orders Orders - ALLA MARRERO RESIDENT Procedure Category Date Status Time Drug Screen LAB 11/10/24 Logged 08:21 Urinalysis LAB 11/10/24 Logged 08:21 Rapid Influenza A&B LAB 11/10/24 Logged 08:21 Covid19 Antigen [facility] LAB 11/10/24 Logged Ceftriaxone 1gm/50ml PHA 11/10/24 In Process D5w (Rocephin) 09:00 Doxycycline PHA 11/10/24 In Process 100mg/100ml 08:30 Blood Culture VICKIE 11/10/24 In Process 08:21 Respiratory Culture VICKIE 11/10/24 Logged W/ Gs 08:21 Urine Bacterial VICKIE 11/10/24 Logged Culture 08:21 Hydralazine Injection PHA 11/10/24 In Process (Apresoline Inject 11:45 Guaifenesin-Dextromet PHA 11/10/24 In Process Liquid (Robitussin 13:15 ALLA MARRERO RESIDENT Nov 10, 2024 14:13
--- NOTE | 2024-11-10 14:25 | DVHINCON2 ---
DATE OF CONSULTATION: 11/10/2024 CONSULTING PHYSICIAN: Dr. Crandall REASON FOR CONSULTATION: Management of dialysis. HISTORY OF PRESENT ILLNESS: The patient is a 59-year-old gentleman who is one of our chronic dialysis patients, receives dialysis at the clinic on Saturday, Saturday, Saturday. He was dialyzed yesterday. Apparently, he has been running 2-3 kg above his dry weight for the last week. He also has developed some cough, sputum. He came to the hospital. He was diagnosed with pneumonia. He also seems to have some fluid overload. I am being consulted to handle his dialysis therapy. The patient is feeling fine otherwise. Denies any chest pain. No headaches. No vomiting or diarrhea. PAST MEDICAL HISTORY: Significant for longstanding hypertension, he has end-stage renal disease, anemia, hyperparathyroidism, coronary artery disease, hyperlipidemia, diastolic congestive heart failure. SOCIAL HISTORY: Denies smoking or drinking alcohol. FAMILY HISTORY: Negative for chronic conditions. MEDICATIONS IN THE HOSPITAL: Include hydralazine, aspirin, multivitamins, ceftriaxone, doxycycline, atorvastatin, carvedilol, methylprednisolone, famotidine, sevelamer, nitroglycerin, acetaminophen, Zofran. PHYSICAL EXAMINATION: VITAL SIGNS: Blood pressure is 129/78, heart rate 76, respirations 18, temperature 98.1. GENERAL: The patient is an adult gentleman, appears to be chronically ill, in no acute distress, alert and oriented x3. HEENT: Oral mucosa dry. Conjunctivae are mildly pale. LUNGS: Scattered rhonchi and wheezing. A few crackles at the bases. CARDIOVASCULAR: Regular rate with an S4 gallop. 2/6 systolic murmur. ABDOMEN: Soft. Nontender. No organomegaly. No ascites. EXTREMITIES: No clubbing or cyanosis. There is no edema. NEUROLOGIC: Nonfocal. SKIN: Unremarkable. LABORATORY FINDINGS: Sodium , potassium 5.1, bicarbonate 24, BUN 74, creatinine 10. Hemoglobin 10.0. IMAGING DATA: Chest x-ray shows multifocal airspace disease and pulmonary vascular congestion. ASSESSMENT AND PLAN: * End-stage renal disease. * Mild hyperkalemia. * Hyponatremia. * Fluid overload. * Possible pneumonia. * History of hypertension, currently controlled. * Anemia of kidney disease. The patient will be scheduled to have dialysis today. We will remove 2-1/2 liters of fluid. We will use a 2K bath. We will reassess him for dialysis again tomorrow. If not, he will be dialyzed every other day as long as he is in the hospital. He can continue his home antihypertensives and receive intravenous empiric antibiotics until cultures can be obtained or to complete at least five to seven days of treatment for possible pneumonia. We will follow him during the hospitalization. Thank you for the consult. MD SHIRA Vincent/LUZ/CHUYITA TID: [id number] RECEIPT: [id number]
[2024-11-10] MEDS: guaiFENesin-DM 100/10mg/5ml SYR PO PRN (14:39)
[2024-11-10 16:49] LABS: COVID19 ANTIGEN SOFIA FIA NEGATIVE (NEGATIVE); Rapid Influenza A Negative (Negative); Rapid Influenza B Negative (Negative)
[2024-11-10] MEDS: SODIUM CHL 0.9% 1000 ML BAG XX ONE ×2 (18:59→19:00)
[2024-11-10] MEDS: ALBUMIN 25% 100 ML IV ONE (19:00)
[2024-11-10] MEDS: EPOETIN ALFA-EPBX 4,000 UNIT/ML VIAL SC ONE (21:38)
[2024-11-11] VITALS (7 sets, daily range): BP systolic 108–135; BP diastolic 70–82; PULSE 70–78; RESP 16–20; TEMP 97.3–97.9; O2SAT 94–100
[2024-11-11 04:45] LABS: Urine Bacteria None Seen /hpf (None Seen)
[2024-11-11 05:06] LABS: Urine Blood TRACE /uL (Negative); Urine Clarity Clear (Clear); Urine Color Light-Yellow (Yellow); Urine Protein, UAD 3+ (Negative); Urine Specific Gravity 1.011 (1.001-1.035); Urine Squamous Epithelial Cell FEW /hpf (<5); Urine Urobilinogen Normal (Negative); Urine WBC 3 /HPF (0-3)
[2024-11-11 05:10] LABS: Amphetamine Screen, Urine Neg (NEGATIVE); Barbiturate Scree,Urine Neg (NEGATIVE); Benzodiazephine Screen, Urine Neg (NEGATIVE); Cocaine Screen, Urine Neg (NEGATIVE)
[2024-11-11 05:20] LABS: Cannabinoid Screen, Urine Neg (NEGATIVE); Opiate Scree,Urine Neg (NEGATIVE); Phencyclidine Screen, Urine Neg (NEGATIVE)
[2024-11-11 06:34] LABS: Hematocrit 28.9 % (41.0-53.0); Hemoglobin 9.8 g/dL (13.5-17.5); Mean Corpuscular Hemoglobin 31.9 pg (28.0-32.0); Mean Corpuscular Hgb Conc. 33.8 g/dL (32.0-36.0); Mean Corpuscular Volume 94.3 fL (80.0-100.0); Platelet Count (auto) 153 10^3/uL (140-450); Red Blood Cells 3.07 10^6/uL (4.5-5.90); Red Cell Distribution Width 16.9 % (11.8-14.3); White Blood Cell 11.1 10^3/uL (4.4-10.8)
[2024-11-11 06:52] LABS: Alanine Aminotransferase 14 U/L (7-40); Albumin 4.1 g/dL (3.2-4.8); Alkaline Phosphatase 83 U/L (46-116); Anion Gap 14 (5-15); BUN/Creatinine Ratio 8.4 (10.0-20.0); Carbon Dioxide 23 mmol/L (20-31); Total Protein 6.7 g/dL (5.7-8.2)
[2024-11-11 06:54] LABS: Aspartate Aminotransferase < 8 U/L (13-40); Bilirubin, Total 0.3 mg/dL (0.2-1.0); Blood Urea Nitrogen 65 mg/dL (9-23); Calcium 8.6 mg/dL (8.7-10.4); Chloride 94 mmol/L (98-107); Glucose 127 mg/dL (74-106); Potassium 5.3 mmol/L (3.5-5.1); Sodium 131 mmol/L (136-145)
[2024-11-11 07:14] LABS: Band Neutrophils % (manual) 0; Basophils % (manual) 0 (0.0-2.0); Blast Cells 0; Eosinophils % (manual) 0 (0-7); Metamyelocytes % 0; Myelocytes % 0; Promyelocytes % 0; Reactive Lymphocytes 0
[2024-11-11 09:16] LABS: Lymphocytes % (manual) 2 (10.0-50.0); Monocytes % (manual) 3 (0-12); Platelet Estimate Adequate
--- NOTE | 2024-11-11 13:58 | DVHPNRES ---
Progress Note Date Seen: Nov 11, 2024 Resident Creating Document: ALLA MARRERO RESIDENT Medical Necessity Reason Pt with a Central, PICC or Fol: No Subjective Review of Systems Justen Hawthorne is a 59-year-old male with a PMH of COPD, CHF, ESRD, HTN presented to the ED with the chief complaints of shortness of breath which started on the day of admission. Patient seen and examined at the bedside. patient is currently on 2 L oxygen [place], Reported improvement in his symptoms after the dialysis. Nephrology healthcare market consultant evaluated the patient and performed hemodialysis yesterday and advised to do hemodialysis today as well. Patient reports: No new complaints Objective vital signs Vital Sign Date Time Temp Pulse Resp B/P (MAP) Pulse Ox O2 Delivery O2 Flow Rate FiO2 11/11/24 10:56 122/82 11/11/24 10:56 76 11/11/24 09:00 97.3 20 98 97.3 11/09/24 20:15 Room Air* 0 21 Total Intake and Output 11/10/24 11/10/24 11/11/24 15:00 23:00 07:00 Intake Total 150 ml 2500 ml 700 ml Balance 150 ml 2500 ml 700 ml medications Current Medications Medications Dose Ordered Sig/Sandor Route Start Time Stop Time Status Last Admin Dose Admin Famotidine 20 mg Q48H IV 11/09/24 22:00 11/09/24 22:57 20 MG Methylprednisolone Sodium Succinate 40 mg Q8HR IV 11/09/24 22:00 11/11/24 05:39 40 MG Sevelamer HCl 800 mg TIDWM PO 11/09/24 18:00 11/11/24 08:26 800 MG Multivit/Ca Carb/ B Cmplx/FA/Prenat 1 tab DAILY PO 11/10/24 10:00 11/11/24 10:54 1 TAB Aspirin 81 mg DAILY PO 11/10/24 10:00 11/11/24 10:54 81 MG Carvedilol 12.5 mg Q12HR PO 11/09/24 22:00 11/11/24 10:56 12.5 MG Atorvastatin Calcium 20 mg HS PO 11/09/24 22:00 11/10/24 21:28 20 MG Bumetanide 2.5 mg DAILY IV 11/10/24 10:00 11/11/24 10:56 2.5 MG Sodium Chloride 10 ml Q8HR IV 11/09/24 22:00 11/11/24 05:39 10 ML Acetaminophen/ Hydrocodone Bitart 1 tab Q4HP PRN PO 11/09/24 17:45 Ondansetron HCl 4 mg Q4HP PRN IV 11/09/24 17:45 Docusate Sodium 100 mg BIDPRN PRN PO 11/09/24 17:45 Acetaminophen 650 mg Q6HP PRN PO 11/09/24 17:45 Nitroglycerin 0.4 mg Q5MINP PRN SL 11/09/24 17:45 Morphine Sulfate 2 mg Q30M PRN IV 11/09/24 17:45 Ceftriaxone Sodium 50 ml @ 100 mls/hr DAILY@09 IV 11/10/24 09:00 11/11/24 10:54 100 MLS/HR Doxycycline Hyclate 100 ml @ 50 mls/hr Q12H IV 11/10/24 08:30 11/11/24 08:26 50 MLS/HR Hydralazine HCl 10 mg Q6HP PRN IV 11/10/24 11:45 Guaifenesin/ Dextromethorphan 10 ml Q4HP PRN PO 11/10/24 13:15 11/11/24 05:52 10 ML Examination General Appearance: Alert, Oriented X3, Cooperative, Not in acute distress HEENT: Atraumatic, Mucous membranes moist/pink Respiratory: Clear to auscultation, Normal air movement, No added sounds Cardiovascular: Regular rate, Normal S1, Normal S2, systolic murmurs Abdominal: Active bowel sounds, Soft, no distention, no tenderness Extremities: No edema, Normal pulses, No tenderness/swelling Skin: Dialysis catheter left chest. No Significant rash, except past surgical scars Neuro: Normal speech, sensorimotor deficits none Psych/Mental Status: Mental status NL, Mood NL Nurse was there as sharperone during examination laboratory and microbiology Laboratory Tests 11/11/24 05:41 Test 11/11/24 05:41 Range/Units Serum Glucose 127 H 74-106 mg/dL Microbiology Date/Time Source Procedure Growth Status 11/10/24 10:38 Blood Blood Culture - Preliminary NO GROWTH AFTER 24 HOURS OF INCUBATION. Resulted Labs and/or images reviewed: Labs reviewed by me, Image(s) reviewed by me Problem List/Assessment/Plan Problem List/Assessment/Plan # Acute hypoxic respiratory failure likely from CHF versus pneumonia # Acute on chronic systolic vs diastolic CHF # NSTEMI II demand mediated - on 2 L oxygen NC - elevated BNP - strict I&O - fluid restriction - GDM T tolerated Coreg, bumetanide - new echocardiogram - CXR showed congestion - Lipitor, aspirin # ? Sepsis # COPD exacerbation # acute G+/- bacterial PNA - evident on CXR - started on Rocephin and doxycycline - ordered respiratory cultures - breathing treatments - Solu-Medrol # ESRD on HD MWF - consulted nephrology for continuity of care - resume home meds - HD yesterday -HD scheduled for today as well Protonix not need SCDs Renal diet Goals of care discussed with the patient for more than 29 minutes: Full code status Case discussed with Dr. Johnston, patient and nurse Plan discussed with: Patient My Orders My Orders Orders - ALLA MARRERO Procedure Category Date Status Time Transfer Orders XFER 11/11/24 Transmitted 08:48 ALLA MARRERO RESIDENT Nov 11, 2024 13:58
--- NOTE | 2024-11-11 15:59 | DVHPN2 ---
Progress Note - Dictate Date Seen: Nov 11, 2024 Medical Necessity Reason Pt with a Central, PICC or Fol: No Subjective Feeling better vital signs Vital Sign Date Time Temp Pulse Resp B/P (MAP) Pulse Ox O2 Delivery O2 Flow Rate FiO2 11/11/24 13:00 97.7 71 19 110/70 (83) 98 97.7 11/09/24 20:15 Room Air* 0 21 Total Intake and Output 11/10/24 11/10/24 11/11/24 15:00 23:00 07:00 Intake Total 150 ml 2500 ml 700 ml Balance 150 ml 2500 ml 700 ml medications Current Medications Medications Dose Ordered Sig/Sandor Route Start Time Stop Time Status Last Admin Dose Admin Famotidine 20 mg Q48H IV 11/09/24 22:00 11/09/24 22:57 20 MG Methylprednisolone Sodium Succinate 40 mg Q8HR IV 11/09/24 22:00 11/11/24 15:16 40 MG Sevelamer HCl 800 mg TIDWM PO 11/09/24 18:00 11/11/24 15:16 800 MG Multivit/Ca Carb/ B Cmplx/FA/Prenat 1 tab DAILY PO 11/10/24 10:00 11/11/24 10:54 1 TAB Aspirin 81 mg DAILY PO 11/10/24 10:00 11/11/24 10:54 81 MG Carvedilol 12.5 mg Q12HR PO 11/09/24 22:00 11/11/24 10:56 12.5 MG Atorvastatin Calcium 20 mg HS PO 11/09/24 22:00 11/10/24 21:28 20 MG Bumetanide 2.5 mg DAILY IV 11/10/24 10:00 11/11/24 10:56 2.5 MG Sodium Chloride 10 ml Q8HR IV 11/09/24 22:00 11/11/24 15:16 10 ML Acetaminophen/ Hydrocodone Bitart 1 tab Q4HP PRN PO 11/09/24 17:45 Ondansetron HCl 4 mg Q4HP PRN IV 11/09/24 17:45 Docusate Sodium 100 mg BIDPRN PRN PO 11/09/24 17:45 Acetaminophen 650 mg Q6HP PRN PO 11/09/24 17:45 Nitroglycerin 0.4 mg Q5MINP PRN SL 11/09/24 17:45 Morphine Sulfate 2 mg Q30M PRN IV 11/09/24 17:45 Ceftriaxone Sodium 50 ml @ 100 mls/hr DAILY@09 IV 11/10/24 09:00 11/11/24 10:54 100 MLS/HR Doxycycline Hyclate 100 ml @ 50 mls/hr Q12H IV 11/10/24 08:30 11/11/24 08:26 50 MLS/HR Hydralazine HCl 10 mg Q6HP PRN IV 11/10/24 11:45 Guaifenesin/ Dextromethorphan 10 ml Q4HP PRN PO 11/10/24 13:15 11/11/24 05:52 10 ML objective Alert and oriented x 3 NAD Lungs: bilateral crackles CV: RR, S4 gallop Abdomen: soft, [place], normal bowel sounds Ext: no edema laboratory and microbiology Laboratory Tests 11/11/24 05:41 Test 11/11/24 05:41 Range/Units Serum Glucose 127 H 74-106 mg/dL Problem List 1. ESRD 2, Hyperkalemia, resolved after HD yesterday 3. CHF/Pulmonary edema: improved with HD/UF 4. Pneumonia 5. HTN 6. Anemia of CKD Plan: HD again tomorrow UF goal 3 L IV Epogen IV antibiotics DC planning Plan discussed with: Patient GÓMEZ TO MD Nov 11, 2024 15:59
[2024-11-11] MEDS: ONDANSETRON HCL 4 MG/2 ML VIAL IV PRN (18:13)
[2024-11-12 01:00] VITALS: BP 125/87; PULSE 72; RESP 19; TEMP 97.5; O2SAT 98
[2024-11-12 05:00] VITALS: BP 128/79; PULSE 66; RESP 19; TEMP 97.6; O2SAT 97
[2024-11-12] MEDS ORDERED: SODIUM CHL 0.9% 1000 ML BAG XX ONE (07:00)
[2024-11-12 07:24] LABS: Basophils # (auto) 0 10 ^3/uL (0-0.2); Basophils % (auto) 0.3 % (0.0-2.0); Eosinophils # (auto) 0 10 ^3/uL (0-0.8); Hematocrit 32.1 % (41.0-53.0); Lymphocytes # (auto) 0.7 10 ^3/uL (0.4-5.4); Lymphocytes % (auto) 4.5 % (10.0-50.0); Mean Corpuscular Hemoglobin 32.4 pg (28.0-32.0); Mean Corpuscular Hgb Conc. 34.2 g/dL (32.0-36.0); Mean Corpuscular Volume 94.7 fL (80.0-100.0); Monocytes # (auto) 0.3 10 ^3/uL (0-1.3); Neutrophils # (auto) 14.5 10 ^3/uL (1.6-8.6); Neutrophils % (auto) 93.2 % (37.0-80.0); Platelet Count (auto) 202 10^3/uL (140-450); Red Blood Cells 3.39 10^6/uL (4.5-5.90); Red Cell Distribution Width 16.7 % (11.8-14.3); White Blood Cell 15.5 10^3/uL (4.4-10.8)
[2024-11-12 07:44] LABS: Alanine Aminotransferase 16 U/L (7-40); Albumin 4.2 g/dL (3.2-4.8); Alkaline Phosphatase 81 U/L (46-116); Anion Gap 17 (5-15); BUN/Creatinine Ratio 9.5 (10.0-20.0); Magnesium 2.1 mg/dL (1.6-2.6)
[2024-11-12 07:45] LABS: Aspartate Aminotransferase < 8 U/L (13-40); Bilirubin, Total 0.2 mg/dL (0.2-1.0); Calcium 8.7 mg/dL (8.7-10.4); Carbon Dioxide 16 mmol/L (20-31); Chloride 88 mmol/L (98-107); Glucose 121 mg/dL (74-106); Sodium 121 mmol/L (136-145)
[2024-11-12 07:48] LABS: Blood Urea Nitrogen 83 mg/dL (9-23); Potassium 6.5 mmol/L (3.5-5.1)
[2024-11-12 09:00] VITALS: BP 111/74; PULSE 69; RESP 19; TEMP 97.3; O2SAT 100
[2024-11-12] MEDS ORDERED: SODIUM ZIRCONIUM CYCL 10 GM PAK PO SCH (12:00)
[2024-11-12] MEDS ORDERED: SODI10PA PO (12:09)
[2024-11-12] MEDS ORDERED: AZIT-185 PO (12:09)
[2024-11-12] MEDS ORDERED: CALCIUM GLUC 1,000mg/50ml-NS 50 ML IV ONE (12:15)
[2024-11-12] MEDS ORDERED: InsuLIN REG 1unit/0.01ml Soln (100units/ml) IV ONE (12:15)
[2024-11-12 12:30] VITALS: BP 116/65; PULSE 72; RESP 17
[2024-11-12 13:44] VITALS: BP 111/74; PULSE 69; RESP 19; TEMP 97.3; O2SAT 100
[2024-11-12 15:41] LABS: Potassium 4.9 mmol/L (3.5-5.1)
[2024-11-12 15:42] LABS: Anion Gap 16 (5-15); Calcium 8.8 mg/dL (8.7-10.4); Carbon Dioxide 24 mmol/L (20-31)
[2024-11-12 15:47] LABS: BUN/Creatinine Ratio 10.2 (10.0-20.0)
[2024-11-12 15:54] LABS: Blood Urea Nitrogen 66 mg/dL (9-23); Chloride 88 mmol/L (98-107); Glucose 141 mg/dL (74-106); Sodium 128 mmol/L (136-145)
[2024-11-12 16:42] VITALS: BP 134/89; PULSE 78; RESP 17; TEMP 97.4; O2SAT 94
--- NOTE | 2024-11-12 17:27 | DVHPN2 ---
Progress Note - Dictate Date Seen: Nov 12, 2024 Medical Necessity Reason Pt with a Central, PICC or Fol: No Subjective HD today vital signs Vital Sign Date Time Temp Pulse Resp B/P (MAP) Pulse Ox O2 Delivery O2 Flow Rate FiO2 11/12/24 16:42 97.4 78 17 134/89 (104) 94 97.4 Total Intake and Output 11/11/24 11/11/24 11/12/24 15:00 23:00 07:00 Intake Total 150 ml 2424 ml 1040 ml Balance 150 ml 2424 ml 1040 ml medications Current Medications Medications Dose Ordered Sig/Sandor Route Start Time Stop Time Status Last Admin Dose Admin Famotidine 20 mg Q48H IV 11/09/24 22:00 11/11/24 22:00 20 MG Methylprednisolone Sodium Succinate 40 mg Q8HR IV 11/09/24 22:00 11/12/24 15:41 40 MG Sevelamer HCl 800 mg TIDWM PO 11/09/24 18:00 11/12/24 08:36 800 MG Multivit/Ca Carb/ B Cmplx/FA/Prenat 1 tab DAILY PO 11/10/24 10:00 11/11/24 10:54 1 TAB Aspirin 81 mg DAILY PO 11/10/24 10:00 11/11/24 10:54 81 MG Carvedilol 12.5 mg Q12HR PO 11/09/24 22:00 11/11/24 22:00 12.5 MG Atorvastatin Calcium 20 mg HS PO 11/09/24 22:00 11/11/24 22:00 20 MG Bumetanide 2.5 mg DAILY IV 11/10/24 10:00 11/11/24 10:56 2.5 MG Sodium Chloride 10 ml Q8HR IV 11/09/24 22:00 11/12/24 15:41 10 ML Acetaminophen/ Hydrocodone Bitart 1 tab Q4HP PRN PO 11/09/24 17:45 Ondansetron HCl 4 mg Q4HP PRN IV 11/09/24 17:45 11/11/24 18:13 4 MG Docusate Sodium 100 mg BIDPRN PRN PO 11/09/24 17:45 Acetaminophen 650 mg Q6HP PRN PO 11/09/24 17:45 Nitroglycerin 0.4 mg Q5MINP PRN SL 11/09/24 17:45 Morphine Sulfate 2 mg Q30M PRN IV 11/09/24 17:45 Ceftriaxone Sodium 50 ml @ 100 mls/hr DAILY@09 IV 11/10/24 09:00 11/11/24 10:54 100 MLS/HR Doxycycline Hyclate 100 ml @ 50 mls/hr Q12H IV 11/10/24 08:30 11/12/24 08:37 50 MLS/HR Hydralazine HCl 10 mg Q6HP PRN IV 11/10/24 11:45 Guaifenesin/ Dextromethorphan 10 ml Q4HP PRN PO 11/10/24 13:15 11/11/24 05:52 10 ML Zirconium Oxide 10 gm BID PO 11/12/24 12:00 objective Gen: NAD, AAOx3 HEENT: NC,AT Lungs: CTA b/l Cardiac:RRR, no murmur Abd: soft, no tenderness Ext: no edema Neuro: no focal deficits laboratory and microbiology Laboratory Tests 11/12/24 14:50 11/12/24 06:12 Test 11/12/24 14:50 Range/Units Serum Glucose 141 H 74-106 mg/dL Assessment/Plan 1. ESRD on HD 2, Hyperkalemia, resolved Post HD 3. Acute on chronic diastolic CHF/Pulmonary edema: improved with HD/UF 4. Pneumonia 5. HTN 6. Anemia of CKD Plan: s/p HD today. 1 K bath used HD schedule TTS while in house IV Epogen as needed. goal Hb: 10-11 g/dl IV antibiotics Plan discussed with: ANDREW Cardona MD Nov 12, 2024 17:27
--- NOTE | 2024-11-12 17:37 | DVHDSRES ---
Discharge Summary Date of Admission Resident Creating Document: ALLA MARRERO RESIDENT Nov 09, 2024 at 17:38 Date of Discharge: Nov 12, 2024 Admitting Diagnosis shortness of breath Labs/Diagnostic Data: Laboratory Results Test 11/12/24 14:50 11/12/24 06:12 11/11/24 05:41 11/11/24 04:38 Sodium Level 128 mmol/L (136-145) Potassium Level 4.9 mmol/L (3.5-5.1) Chloride Level 88 mmol/L (98-107) Carbon Dioxide Level 24 mmol/L (20-31) Anion Gap 16 (5-15) Blood Urea Nitrogen 66 mg/dL (9-23) Creatinine 6.46 mg/dL (0.700-1.30) Glomerular Filtration Rate Calc 9 mL/min (>90) BUN/Creatinine Ratio 10.2 (10.0-20.0) Serum Glucose 141 mg/dL (74-106) Calcium Level 8.8 mg/dL (8.7-10.4) White Blood Count 15.5 10^3/uL (4.4-10.8) Red Blood Count 3.39 10^6/uL (4.5-5.90) Hemoglobin 11.0 g/dL (13.5-17.5) Hematocrit 32.1 % (41.0-53.0) Mean Corpuscular Volume 94.7 fL (80.0-100.0) Mean Corpuscular Hemoglobin 32.4 pg (28.0-32.0) Mean Corpuscular Hemoglobin Concent 34.2 g/dL (32.0-36.0) Red Cell Distribution Width 16.7 % (11.8-14.3) Platelet Count 202 10^3/uL (140-450) Mean Platelet Volume 9.2 fL (6.9-10.8) Neutrophils (%) (Auto) 93.2 % (37.0-80.0) Lymphocytes (%) (Auto) 4.5 % (10.0-50.0) Monocytes (%) (Auto) 2.0 % (0.0-12.0) Eosinophils (%) (Auto) 0.0 % (0.0-7.0) Basophils (%) (Auto) 0.3 % (0.0-2.0) Neutrophils # (Auto) 14.5 10 ^3/uL (1.6-8.6) Lymphocytes # (Auto) 0.7 10 ^3/uL (0.4-5.4) Monocytes # (Auto) 0.3 10 ^3/uL (0-1.3) Eosinophils # (Auto) 0 10 ^3/uL (0-0.8) Basophils # (Auto) 0 10 ^3/uL (0-0.2) Nucleated Red Blood Cells 0.0 % Magnesium Level 2.1 mg/dL (1.6-2.6) Total Bilirubin 0.2 mg/dL (0.2-1.0) Aspartate Amino Transferase (AST) < 8 U/L (13-40) Alanine Aminotransferase (ALT) 16 U/L (7-40) Alkaline Phosphatase 81 U/L (46-116) Total Protein 7.0 g/dL (5.7-8.2) Albumin 4.2 g/dL (3.2-4.8) Differential Total Cells Counted 100.0 (100) Neutrophils % (Manual) 95 (37.0-80.0) Band Neutrophils % (Manual) 0 Lymphocytes % (Manual) 2 (10.0-50.0) Monocytes % (Manual) 3 (0-12) Eosinophils % (Manual) 0 (0-7) Basophils % (Manual) 0 (0.0-2.0) Metamyelocytes % (manual) 0 Myelocytes % (Manual) 0 Promyelocytes % (Manual) 0 Blast Cells % (Manual) 0 Reactive Lymphocytes 0 Platelet Estimate Adequate Urine Color Light-yellow (Yellow) Urine Clarity Clear (Clear) Urine pH 8.0 (5.0-9.0) Urine Specific [place] 1.011 (1.001-1.035) Urine Protein 3+ (Negative) Urine Ketones Negative (Negative) Urine Blood Trace /uL (Negative) Urine Nitrite Negative (Negative) Urine Bilirubin Negative (Negative) Urine Urobilinogen Normal mg/dL (Negative) Urine Leukocyte Esterase Negative /uL (Negative) Urine RBC 4 /hpf (0 - 3) Urine Microscopic WBC 3 /HPF (0-3) Urine Squamous Epithelial Cells Few /hpf (<5) Urine Bacteria None seen /hpf (None Seen) Urine Glucose 2+ mg/dL (Normal) Urine Opiates Screen Neg (NEGATIVE) Urine Fentanyl Screen Neg (NEGATIVE) Urine Barbiturates Screen Neg (NEGATIVE) Urine Phencyclidine Screen Neg (NEGATIVE) Urine Amphetamines Screen Neg (NEGATIVE) Urine Benzodiazepines Screen Neg (NEGATIVE) Urine Cocaine Screen Neg (NEGATIVE) Urine Cannabinoids Screen Neg (NEGATIVE) Test 11/10/24 15:42 11/10/24 10:38 11/10/24 07:15 11/09/24 17:59 Influenza Type A Antigen Negative (Negative) Influenza Type B Antigen Negative (Negative) SARS-CoV-2 Antigen (Rapid) Negative (NEGATIVE) Lactic Acid Level 1.2 mmol/L (0.4-2.0) Ammonia < 10 umol/L (11-32) Prothrombin Time 11.2 sec (9.3-11.8) Prothrombin Time INR 1.06 (0.9-1.15) Activated Partial Thromboplast Time 28.8 SEC (24.5-34.5) Hemoglobin A1c 5.2 % A1C (<5.7) Triglycerides Level 98 mg/dL (< 150) Cholesterol Level 196 mg/dL (< 200) LDL Cholesterol 113 mg/dL (< 100) HDL Cholesterol 57 mg/dL (40-59) Vitamin B12 Level 815 pg/mL (211-911) Thyroid Stimulating Hormone (TSH) 1.07 uIU/mL (0.55-4.78) Plasma/Serum Blood Alcohol < 3.0 mg/dL (<10) Troponin I High Sensitivity 214 ng/L (</=54) Test 11/09/24 14:39 B-Type Natriuretic Peptide 2565.76 pg/mL (0-100) Other Laboratory Tests 11/12/24 14:50 11/12/24 06:12 Brief Hx & Hospital Course: Justen Hawthorne is a 59-year-old male with a PMH of COPD, CHF, ESRD, HTN presented to the ED with the chief complaints of shortness of breath which started on the day of admission. Patient reported yesterday he went to dialysis unit for the dialysis that he started having shortness of breath, fever and fluctuation in blood pressure, called EMS and arrived to ED. patient reported he has been having cough for 1 month which is dry. On my assessment patient denies sick contacts, recent travel, chest pain, abdominal pain and other associated symptoms. Patient required hospital admission for further management acute hypoxic respiratory failure. patient was diagnosed as CHF exacerbation, pneumonia and sepsis along with a NSTEMI type 2. BNP was elevated along with troponins. CXR showed congestion. EKG showed normal sinus rhythm without ST changes. Patient was started on GDM T as tolerated and other new echocardiogram. patient was started on Rocephin and doxycycline and respiratory cultures along with the pancultures. Patient received Solu-Medrol along with the breathing treatments. Due to ESRD patient was consulted with the Nephrology for the continuation of hemodialysis. Patient will continuously being monitored for the electrolyte imbalance. Patient condition was improved, hemodynamically stable and in condition to be discharged home with optimal medical treatment Lokelma and azithromycin. Patient was advised about healthy lifestyle modifications including diet and exercise and to follow up with [facility] and PCP after the discharge. General Appearance: Alert, Oriented X3, Cooperative, Not in acute distress HEENT: Atraumatic, Mucous membranes moist/pink Respiratory: Clear to auscultation, Normal air movement, No added sounds Cardiovascular: Regular rate, Normal S1, Normal S2, systolic murmurs Abdominal: Active bowel sounds, Soft, no distention, no tenderness Extremities: No edema, Normal pulses, No tenderness/swelling Skin: Dialysis catheter left chest. No Significant rash, except past surgical scars Neuro: Normal speech, sensorimotor deficits none Psych/Mental Status: Mental status NL, Mood NL Nurse was there as sharperone during examination Operations or Procedures CHEST RADIOGRAPH IMPRESSION: Multifocal airspace disease and/or pulmonary vascular congestion. Condition at Discharge: Stable Final Diagnosis/Problems List # Acute hypoxic respiratory failure likely from CHF versus pneumonia # Acute on chronic systolic vs diastolic CHF # NSTEMI II demand mediated # ? Sepsis # COPD exacerbation # acute G+/- bacterial PNA # ESRD on HD MWF # Hyperkalemia Discharge Disposition: Home Discharge Instruct/Medications Diet: Consistent carbohydrate, Cardiac 2g Na,low cholest Activity: No Restrictions, As Tolerated Follow Up/Referral: Nephrology to continue HD Dc Clinic for BMP repeat Medications: Azithromycin daily for 5 days Lokelma Dialy once for 30 days Discharge Statement: "Patient was advised to return to the ER or call 911 if any headaches, dizziness, shortness of breath, chest pain, abdominal pain, bleeding, fevers, or worsening of medical condition. Patient was counseled about treatment plan, medications, possible side effects, patientverbalized understanding. All questions were answered to the best of my ability. This discharge took greater then 30 minutes in planning, reviewing documentation, counseling the patient, and discussing with other team members." ASSESSMENT ASSESSMENT Assessment Hypoxic resp failure, due to CHF ALLA MARRERO RESIDENT Nov 12, 2024 17:37
[2024-11-12] MEDS ORDERED: EPOETIN ALFA-EPBX 4,000 UNIT/ML VIAL SC ONE (21:00)
== END 2024-11-12 17:04 | disposition home or self-care (01) | DRG 720 ==
LOC: EDBD 13:53 → ER 13:53 → OVERFLOW 17:38 → TELE-WESTW 20:50 → WEST WING 11-11 09:14
PROVIDERS: ADMIT Student in an Organized Health Care Education/Training Program; ATTEND Student in an Organized Health Care Education/Training Program
PROC: 5A1D70Z Performance of Urinary Filtration, Intermittent, Less than 6 Hours Per Day (ICD-10-PCS; principal; 2024-11-10)
DX: A41.9 Sepsis, unspecified organism (principal); J96.01 Acute respiratory failure with hypoxia; I50.43 Acute on chronic combined systolic (congestive) and diastolic (congestive) heart failure; I21.A1 Myocardial infarction type 2; J15.69 Pneumonia due to other Gram-negative bacteria; J15.9 Unspecified bacterial pneumonia; E87.1 Hypo-osmolality and hyponatremia; D63.1 Anemia in chronic kidney disease; N18.6 End stage renal disease; Z20.822 Contact with and (suspected) exposure to COVID-19; J44.0 Chronic obstructive pulmonary disease with (acute) lower respiratory infection; J44.1 Chronic obstructive pulmonary disease with (acute) exacerbation; I13.2 Hypertensive heart and chronic kidney disease with heart failure and with stage 5 chronic kidney disease, or end stage renal disease; I25.10 Atherosclerotic heart disease of native coronary artery without angina pectoris; E78.5 Hyperlipidemia, unspecified; E87.5 Hyperkalemia; F17.210 Nicotine dependence, cigarettes, uncomplicated; Z99.2 Dependence on renal dialysis; Z83.3 Family history of diabetes mellitus; Z79.899 Other long term (current) drug therapy
CPT/HCPCS: 36415; 71045; 80048; 80053; 80061; 80307; 80320; 81001; 82140; 82607; 83036; 83605; 83735; 83880; 84443; 84484; 85007; 85025; 85027; 85610; 85730; 87040; 87086; 87340; 87426; 87804; 90935; 93005; 93306; 96374; 99291; G0378; J2405; J3490

== ENCOUNTER 2025-03-22 05:38 | Emergency (ER) | payer MEDICAID ==
[~2025-03-22] VITALS: Ht 188 cm; Wt 99.0 kg
[~2025-03-22 05:38] MED LIST changes: +AZIT-185 PO; +SODI10PA PO
[2025-03-22 05:56] VITALS: BP 170/121; PULSE 97; RESP 22; TEMP 97.2; O2SAT 96
--- NOTE | 2025-03-22 06:25 | ED.PDOC ---
HPI Comments This is a 59 year old male presenting to the ED with chief complaint of chest pain. Patient reports that he began to experiencing chest pain with associated SOB since this morning. Patient relays that he had a cardiac stent recently placed 2 months ago. Patient admits to continuing to smoke cigarettes. Patient denies any dizziness, N/V, fever, chills, hemoptysis, numbness, or weakness. Chief Complaint: Shortness of Breath Time Seen by MD: 06:23 Primary Care Provider: Nura Kenyon Notes: Nurses Notes, Medications, Allergies Allergies: Coded Allergies: NO KNOWN ALLERGIES (Unverified , 05/13/23) Home Meds Active Scripts Sodium Zirconium Cyclosilicate (Lokelma) 10 Gm Zaheer, 10 GM PO DAILY for 30 Days, #30 PACK Prov:JEIMY MARREROKO RESIDENT 11/12/24 Azithromycin (ZITHROMAX TABLET) 250 Mg Tb, 250 MG PO DAILY for 5 Days, #5 TAB Prov:ELIDAALLA RESIDENT 11/12/24 Azithromycin (Zithromax Z-Zaheer) 250 Mg Tab, 250 MG PO DAILY for 4 Days, #4 TAB Prov:DALILA RESENDIZ RESIDENT 05/27/24 Apixaban Base (ELIQUIS) 5 Mg Tab, 5 MG PO BID for 30 Days, #60 TAB Prov:DALILA RESENDIZ RESIDENT 05/27/24 Amiodarone HCl (Amiodarone HCl) 200 Mg Tab, 200 MG PO Q12HR for 30 Days, #60 TAB Prov:DALILA RESENDIZ RESIDENT 05/27/24 Reported Medications B-Complex W/ C & Folic Acid ([facility] Rx) Tab, 1 TAB PO DAILY for 30 Days, #30 05/26/24 Amlodipine Besylate (Amlodipine Besylate) 10 Mg Tab, 1 TAB PO DAILY for 30 Days, #30 05/26/24 Valsartan (Valsartan) 160 Mg Tab, 160 MG PO DAILY, TAB 06/10/23 Trazodone Hcl (Trazodone Hcl) 100 Mg Tab, 1 TAB PO QPM, #30 TAB 1 Refill 05/13/23 Carvedilol (Carvedilol) 12.5 Mg Tab, 1 TAB PO BID, #180 TAB 1 Refill 05/13/23 Bumetanide (Bumetanide) 2 Mg Tab, 1 TAB PO DAILY for 60 Days, #60 05/13/23 Hydralazine Hcl (Hydralazine Hcl) 50 Mg Tab, 100 MG PO TID for 30 Days, MG 05/13/23 Atorvastatin Calcium (ATORVASTATIN CALCIUM) 20 Mg Tab, 1 TAB PO DAILY, #30 TAB 5 Refills 05/13/23 Aspirin (ASPIRIN 81) 81 Mg Tab, 1 TAB PO DAILY for 30 Days, #30 05/13/23 Calcium Acetate (Phosphate Bin (Calcium Acetate) 667 Mg Cap, 2 CAP PO TIDWM for 30 Days, #270 05/13/23 Information Source: Patient Mode of Arrival: Wheelchair Severity: Moderate Timing: Hours Duration: Since onset Prehospital treatment: None Location: Chest (L) Radiation: No Radiation Quality: Sharp Onset: At Rest Cardiac Risk Factors: Smoker, HTN PE Risk Factors: None History of: Similar pain in past Associated Signs and Symptoms: SOB Past Medical History PAST MEDICAL HISTORY: CHF, COPD, ESRD, HTN Surgical History: PTCA Family History Family History: Reviewed,noncontributory to illness, Family hx of DM Social History Smoker: Cigarettes, Less Than 1 Pack/Day Alcohol: Denies ETOH Use Drugs: Methamphetamine Lives In: Home Constitutional: denies: chills, diaphoresis, fatigue, fever, malaise, sweats, weakness, others EENTM: denies: blurred vision, double vision, ear bleeding, ear discharge, ear drainage, ear pain, ear ringing, eye pain, eye redness, hearing loss, mouth pain , mouth swelling, nasal discharge, nose bleeding, nose congestion, nose pain, photophobia, tearing, throat pain, throat swelling, voice changes, others Respiratory: reports: shortness of breath; denies: cough, hemoptysis, orthopnea, SOB at rest, SOB with excertion, stridor, wheezing, others Cardiovascular: reports: chest pain; denies: dizzy spells, diaphoresis, Dyspnea on exertion, edema, irregular heart beat, left arm pain, lightheadedness, palpitations, PND, syncope, others Gastrointestinal: denies: abdomen distended, abdominal pain, blood streaked bowels, constipated, diarrhea, dysphagia, difficulty swallowing, hematemesis, melena, nausea, poor appetite, poor fluid intake, rectal bleeding, rectal pain, vomiting, others Genitourinary: denies: burning, dysuria, flank pain, frequency, hematuria, incontinence, penile discharge, penile sore, pain, testicle pain, testicle swelling, urgency, others Neurological: denies: dizziness, fainting, headache, left sided numbness, left sided weakness, numbness, paresthesia, pre-existing deficit, right sided numbness, right sided weakness, seizure, speech problems, tingling, tremors, weakness, others Musculoskeletal: denies: back pain, gout, joint pain, joint swelling, muscle pain, muscle stiffness, neck pain, others Integumetry: denies: bruises, change in color, change in hair/nails, dryness, laceration, lesions, lumps, rash, wounds, others Allergic/Immunocompromised: denies: Difficulty Healing, Frequent Infections, Hives, Itching, others Hematologic/Lymphatic: denies: anemia, blood clots, easy bleeding, easy bruising, swollen glands, others Endocrine: denies: excessive hunger, excessive sweating, excessive thirst, excessive urination, flushing, intolerance to cold, intolerance to heat, unexplained weight gain, unexplained weight loss, others Psychiatric: denies: anxiety, bipolar disorder, depression, hopeless, panic disorder, schizophrenia, sleepless, suicidal, others All Other Systems: Reviewed and Negative Physical Exam General Appearance: Moderate Distress, Normal HEENT: Normal ENT Inspection, Pharynx Normal, TMs Normal Neck: Full Range of Motion, Non-Tender, Normal, Normal Inspection Respiratory: Chest Non-Tender, Lungs Clear, No Accessory Muscle Use, No Respiratory Distress, Normal Breath Sounds Cardiovascular: No Edema, No JVD, No Murmur, No Gallop, Normal Peripheral Pulses, Regular Rate/Rhythm Breast Exam: Deferred Gastrointestinal: No Organomegaly, Non Tender, No Pulsatile Mass, Normal Bowel Sounds, Soft Genitalia: Deferred Pelvic: Deferred Rectal: Deferred Extremities: No calf tenderness, Normal capillary refill, Normal inspection, Normal range of motion, Non-tender, No pedal edema Musculoskeletal : Apperance: Normal Neurologic: Alert, manager gyn II-XII nml as Tested, No Motor Deficits, Normal Affect, Normal Mood, No Sensory Deficits Cerebellar Function: Normal Reflexes: Normal Skin: Dry, Normal Color, Warm Peripheral Pulses: 3+ Radial (R), 3+ Radial (L) Lymphatic: No Adenopathy Was a procedure done? Was a procedure done?: No CP Differential Dx Differential Diagnosis: A-fib, A-Flutter, Angina, Anxiety / Panic Attack, Atrial Dysrhythmia, Electrolyte Disorder X-Ray, Labs, Meds, VS Vital Signs Date Time Temp Pulse Resp B/P (MAP) Pulse Ox O2 Delivery O2 Flow Rate FiO2 03/22/25 05:56 97.2 97 22 170/121 96 97.2 03/22/25 05:44 96 Lab Test 03/22/25 05:50 Range/Units White Blood Count Pending Red Blood Count Pending Hemoglobin Pending Hematocrit Pending Mean Corpuscular Volume Pending Mean Corpuscular Hemoglobin Pending Mean Corpuscular Hemoglobin Concent Pending Red Cell Distribution Width Pending Platelet Count Pending Mean Platelet Volume Pending Neutrophils (%) (Auto) Pending Lymphocytes (%) (Auto) Pending Monocytes (%) (Auto) Pending Basophils (%) (Auto) Pending Neutrophils # (Auto) Pending Lymphocytes # (Auto) Pending Monocytes # (Auto) Pending Sodium Level Pending Potassium Level Pending Chloride Level Pending Carbon Dioxide Level Pending Anion Gap Pending Blood Urea Nitrogen Pending Creatinine Pending Glomerular Filtration Rate Calc Pending BUN/Creatinine Ratio Pending Serum Glucose Pending Calcium Level Pending Troponin I High Sensitivity 375 *H </=54 ng/L B-Type Natriuretic Peptide Pending Patient alert. Complaining of shortness a breath. Continues to smoke cigarettes. Blood pressure elevated. Cardiac marker elevated. Was given Lovenox. Was given labetalol. Counseled patient on effects of smoking cigarettes for 15 minutes. Explained to the patient. Continue monitoring. Time of 1ST Reevaluation: 07:22 Reevaluation 1ST: Unchanged Patient Education/Counseling: Diagnosis, Treatment Family Education/Counseling: No Family Present SEPSIS Sepsis Screen Date sepsis recognized/suspect: Mar 22, 2025 Time Sepsis recognized/suspect: 0603 Recent Procedure: No On Antibiotic Therapy: No Respiratory Rate >20: Yes Heart Rate >90: Yes Temp<36 C (96.8 F) or >38.3 C: No SBP <90 or MAP <65 mmHG: No New Acute Mental Status Change: No Is the patient on CPAP, BIPAP,: No Physician Orders Electrocardigram (03/22/25 06:42) Electrocardigram (03/22/25 08:42) Troponin-I Hs (03/22/25 06:42) Troponin-I Hs (03/22/25 08:42) Complete Blood Count (03/22/25 06:53) B-Type Natriuretic Peptide (03/22/25 06:53) Chest Portable (03/22/25 06:53) Basic Metabolic Panel (03/22/25 06:53) *[facility] (03/22/25 07:28) Vital Signs Date Time Temp Pulse Resp B/P (MAP) Pulse Ox O2 Delivery O2 Flow Rate FiO2 03/22/25 05:56 97.2 97 22 170/121 96 97.2 03/22/25 05:44 96 Laboratory Tests Test 03/22/25 05:50 White Blood Count Pending Departure 1 Departure Time of Disposition: 07:27 Impression: Primary Impression: ESRD needing dialysis Additional Impressions: Hypertensive urgency Acute exacerbation of CHF (congestive heart failure) Qualified Codes: I50.43 - Acute on chronic combined systolic (congestive) and diastolic (congestive) heart failure Disposition: ADMITTED INPATIENT Admit to: Med Surg Condition: Guarded Critical Care Note Critical Care Time?: Yes (90 min-critical care time only) Stability Stability form required: No Heart Score Heart Score: Heart Score Response (Comments) Value History Highly Suspicious 2 EKG Normal 0 Age 45-64 1 Risk Factors >3 or Hx ASHD 2 Troponin >3 x's Normal limit 2 Total 7 I personally scribed for CARMELITA MORROW MD ([email or web address]) on 03/22/25 at 06:25. Electronically submitted by Luis Enrique Li ([email or web address]). CARMELITA MORROW MD Mar 22, 2025 06:25
--- NOTE | 2025-03-22 06:41 | ECG ---
[facility] Test Date: 2025-03-22 Test Time: 05:44:46 Pat Name: MESSI CROWDER Department: ED Room: Gender: M Scowman: : 1965 Requested By: EMERGENCY EMERGENCY Order Number: [id number] Reading MD: Mckay Evans Measurements Intervals [place] Rate: 96 P: 45 CO: 196 QRS: 30 QRSD: 110 T: 101 QT: 374 QTc: 473 Interpretive Statements Sinus rhythm Left atrial enlargement LVH with IVCD and secondary repol abnrm Anterior ST elevation, probably due to LVH Electronically Signed On 03-22-2025 22:10:11 PDT by Mckay Evans Please click the below link to view image of tracing.
[2025-03-22] MEDS ORDERED: ENOXAPARIN SOD 100 MG/1 ML SYRINGE SC ONE (07:00)
[2025-03-22 07:44] LABS: Hematocrit 37.6 % (41.0-53.0); Hemoglobin 12.9 g/dL (13.5-17.5); Mean Corpuscular Hemoglobin 32.2 pg (28.0-32.0); Mean Corpuscular Volume 94.1 fL (80.0-100.0); Nucleated Red Blood Cells % 0.0 %
[2025-03-22 07:47] LABS: Sodium 139 mmol/L (136-145)
[2025-03-22 07:48] LABS: Anion Gap 21 (5-15); Calcium 9.6 mg/dL (8.7-10.4); Carbon Dioxide 21 mmol/L (20-31)
[2025-03-22 07:53] LABS: BUN/Creatinine Ratio 5.3 (10.0-20.0); Blood Urea Nitrogen 56 mg/dL (9-23); Chloride 97 mmol/L (98-107); Glucose 108 mg/dL (74-106); Potassium 5.2 mmol/L (3.5-5.1)
--- NOTE | 2025-03-22 08:18 | DVH ---
CHEST RADIOGRAPH Indication: sob Technique: Single frontal view of the chest was obtained COMPARISON: XY CHEST PORTABLE on DOS: 11/09/24, CT CT ANGIO CHEST CONTRAST on DOS: 05/25/24, XY CHEST P ORTABLE on DOS: 05/25/24, XY CHEST PORTABLE on DOS: 09/23/23, XY CHEST PORTABLE on DOS: 09/22/23 FINDINGS: Lines and Tubes: Tunneled right central venous catheter in satisfactory position. Lungs: Mild congestion Pleura: No effusion. No pneumothorax. Cardiomediastinal contours: Unremarkable Bones: Unremarkable IMPRESSION: Mild congestion
== END 2025-03-22 09:09 | disposition left against medical advice (07) ==
LOC: ER 05:38
DX: I13.2 Hypertensive heart and chronic kidney disease with heart failure and with stage 5 chronic kidney disease, or end stage renal disease (principal); N18.6 End stage renal disease; I50.9 Heart failure, unspecified; I16.0 Hypertensive urgency; J44.9 Chronic obstructive pulmonary disease, unspecified; F17.210 Nicotine dependence, cigarettes, uncomplicated; Z79.82 Long term (current) use of aspirin; Z79.899 Other long term (current) drug therapy; Z95.5 Presence of coronary angioplasty implant and graft; Z99.2 Dependence on renal dialysis
CPT/HCPCS: 36415; 71045; 80048; 83880; 84484; 85025; 93005; 99291; 99292

== ENCOUNTER 2025-03-28 09:06 | Inpatient (IN) | payer MEDICAID ==
[~2025-03-28] VITALS: Ht 188 cm; Wt 100.0 kg
--- NOTE | 2025-03-28 09:18 | ECG ---
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
--- NOTE | 2025-03-28 09:42 | ED.PDOC ---
SOB-HPI HPI Comments 59 y/o M, BIBA, with PMHx of COPD, CHF, ESRD, and HTN presents to the ED for CC of shortness of breath. EMS reports, patient is coming from [place] where he c/o shortness of breath with associated symptoms of fluid in his lungs x1day. EMS relays, upon arrival to scene patient was found to be hypertensive with a blood pressure of 149/106mmHg and to have dismissed lung sounds in the right lower lobe of the lungs. In route to the ED, patient was stating at 92-93% on R.A; patient was placed on 2L NC and saturation improved to 98%. 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 Patient denies cough, nasal congestion, fever, chills, palpitations, or chest pain. No other symptoms or modifying factors present at this time. Chief Complaint: Shortness of Breath Time Seen by MD: 09:30 Primary Care Provider: Nura Kenyon notes: Nurses Notes, Liquid Yeast Supervisor Notes, Medications, Allergies Information Source: Patient, Emergency Med Personnel Mode of Arrival: EMS Severity: Moderate Timing: Days Duration: Since onset Context: At Rest PE Risk Factors: None History of: COPD, CHF Prehospital treatment: None Modifying Factors: Nothing Past Medical History PAST MEDICAL HISTORY: CHF, COPD, ESRD, HTN Surgical History: PTCA Family History Family History: Reviewed,noncontributory to illness, Family hx of DM Social History Smoker: Cigarettes, Less Than 1 Pack/Day Alcohol: Denies ETOH Use Drugs: Methamphetamine Lives In: Home Constitutional: denies: chills, diaphoresis, fatigue, fever, malaise, sweats, weakness, others EENTM: denies: blurred vision, double vision, ear bleeding, ear discharge, ear drainage, ear pain, ear ringing, eye pain, eye redness, hearing loss, mouth pain, mouth swelling, nasal discharge, nose bleeding, nose congestion, nose pain, photophobia, tearing, throat pain, throat swelling, voice changes, others Respiratory: reports: shortness of breath; denies: cough, hemoptysis, orthopnea, SOB at rest, SOB with excertion, stridor, wheezing, others Cardiovascular: denies: chest pain, dizzy spells, diaphoresis, Dyspnea on exertion, edema, irregular heart beat, left arm pain, lightheadedness, palpitations, PND, syncope, others Gastrointestinal: denies: abdomen distended, abdominal pain, blood streaked bowels, constipated, diarrhea, dysphagia, difficulty swallowing, hematemesis, melena, nausea, poor appetite, poor fluid intake, rectal bleeding, rectal pain, vomiting, others Genitourinary: denies: burning, dysuria, flank pain, frequency, hematuria, incontinence, penile discharge, penile sore, pain, testicle pain, testicle swe lling, urgency, others Neurological: denies: dizziness, fainting, headache, left sided numbness, left sided weakness, numbness, paresthesia, pre-existing deficit, right sided numbness, right sided weakness, seizure, speech problems, tingling, tremors, weakness, others Musculoskeletal: denies: back pain, gout, joint pain, joint swelling, muscle pain, muscle stiffness, neck pain, others Integumetry: denies: bruises, change in color, change in hair/nails, dryness, laceration, lesions, lumps, rash, wounds, others Allergic/Immunocompromised: denies: Difficulty Healing, Frequent Infections, Hives, Itching, others Hematologic/Lymphatic: denies: anemia, blood clots, easy bleeding, easy bruising, swollen glands, others Endocrine: denies: excessive hunger, excessive sweating, excessive thirst, excessive urination, flushing, intolerance to cold, intolerance to heat, unexplained weight gain, unexplained weight loss, others Psychiatric: denies: anxiety, bipolar disorder, depression, hopeless, panic disorder, schizophrenia, sleepless, suicidal, others All Other Systems: Reviewed and Negative Physical Exam General Appearance: Moderate Distress HEENT: Normal ENT Inspection, Pharynx Normal, TMs Normal Neck: Full Range of Motion, Non-Tender, Normal, Normal Inspection Respiratory: Other (Coarse breath sounds) Cardiovascular: No Edema, No JVD, No Murmur, No Gallop, Normal Peripheral Pulses, Regular Rate/Rhythm Breast Exam: Deferred Gastrointestinal: No Organomegaly, Non Tender, No Pulsatile Mass, Normal Bowel Sounds, Soft Genitalia: Deferred Pelvic: Deferred Rectal: Deferred Extremities: No calf tenderness, Normal capillary refill, Normal inspection, Normal range of motion, Non-tender, No pedal edema Musculoskeletal : Apperance: Normal Neurologic: Alert, automotive dismantler II-XII nml as Tested, No Motor Deficits, Normal Affect, Normal Mood, No Sensory Deficits Cerebellar Function: Normal Reflexes: Normal Skin: Dry, Normal Color, Warm Peripheral Pulses: 3+ Radial (R), 3+ Radial (L) Lymphatic: No Adenopathy EKG EKG : Pulse Rate (adult): 97 [place]: Normal Cardiac Rhythm: NSR Block: None Hypertrophy: LVH ST: Normal Was a procedure done? Was a procedure done?: No Differential Dx Differential Diagnosis: Anxiety, Asthma, Bronchitis, CHF, COPD, Respiratory Distress, Other (respiratory failure) X-Ray, Labs, Meds, VS Vital Signs Date Time Temp Pulse Resp B/P (MAP) Pulse Ox O2 Delivery O2 Flow Rate FiO2 03/28/25 11:23 20 94 Room Air* 0 21 03/28/25 11:04 97 Room Air* 2 N/A Nasal Cannula* 03/28/25 11:02 96 18 97 Room Air 03/28/25 11:02 97.6 96 18 170/115 (133) 97 97.6 03/28/25 09:57 97 03/28/25 09:20 98.1 98 31 148/69 98 98.1 03/28/25 09:12 97 Lab Test 03/28/25 10:02 Range/Units White Blood Count 9.7 4.4-10.8 10^3/uL Red Blood Count 4.40 L 4.5-5.90 10^6/uL Hemoglobin 14.0 13.5-17.5 g/dL Hematocrit 43.2 # 41.0-53.0 % Mean Corpuscular Volume 98.1 # 80.0-100.0 fL Mean Corpuscular Hemoglobin 31.7 28.0-32.0 pg Mean Corpuscular Hemoglobin Concent 32.3 32.0-36.0 g/dL Red Cell Distribution Width 18.0 H 11.8-14.3 % Platelet Count 118 L 140-450 10^3/uL Mean Platelet Volume 9.9 6.9-10.8 fL Neutrophils (%) (Auto) 65.7 37.0-80.0 % Lymphocytes (%) (Auto) 15.7 10.0-50.0 % Monocytes (%) (Auto) 15.4 H 0.0-12.0 % Eosinophils (%) (Auto) 1.8 0.0-7.0 % Basophils (%) (Auto) 1.4 0.0-2.0 % Neutrophils # (Auto) 6.4 1.6-8.6 10 ^3/uL Lymphocytes # (Auto) 1.5 0.4-5.4 10 ^3/uL Monocytes # (Auto) 1.5 H 0-1.3 10 ^3/uL Eosinophils # (Auto) 0.2 0-0.8 10 ^3/uL Basophils # (Auto) 0.1 0-0.2 10 ^3/uL Nucleated Red Blood Cells 0.3 % Sodium Level 138 136-145 mmol/L Potassium Level 5.3 H 3.5-5.1 mmol/L Chloride Level 96 L 98-107 mmol/L Carbon Dioxide Level 18 L 20-31 mmol/L Anion Gap 24 H 5-15 Blood Urea Nitrogen 48 H 9-23 mg/dL Creatinine 10.14 *H 0.700-1.30 mg/dL Glomerular Filtration Rate Calc 5 >90 mL/min BUN/Creatinine Ratio 4.7 L 10.0-20.0 Serum Glucose 80 74-106 mg/dL Calcium Level 8.5 L 8.7-10.4 mg/dL B-Type Natriuretic Peptide > 5000.00 0-100 pg/mL Current Medications Medications (Trade) Dose Ordered Sig/Sandor Route Start Time Stop Time Status Last Admin Albuterol (Ventolin Medneb) 20 mg ONCE ONCE NEB 03/28/25 11:15 03/28/25 11:16 DC 03/28/25 11:23 Patient alert. Complaining of shortness a breath. Chronic kidney disease on dialysis. Vitals stable. Potassium elevated. Hyperkalemia treatment. Blood pressure elevated. Was given Norvasc. Was given Lasix. WBC within normal limits. Hemoglobin within normal limits. CHF. Nephrology consultation. Explained to the patient. Continue monitoring. [address] [address] Ph: [phone] DIAGNOSTIC IMAGING Diagnostic Imaging Report : [id number] Signed PATIENT: MESSI CROWDERACCT: [id number] UNIT: [id number] : 1965 LOC: ER ROOM / BED: / AGE / SEX: 59 / M ADM STATUS: REG ER SERVICE 4 ORDERING PHYSICIAN: CARMELITA MORROW MD PROCEDURE(s): CXRP - CHEST PORTABLE REASON: sob ORDER NUMBER(s): [id number], ACCESSION NUMBER(s): [id number] XY CHEST PORTABLE, HISTORY: sob COMPARISON: XY CHEST PORTABLE on DOS: 03/22/25, XY CHEST PORTABLE on DOS: 11/09/24, CT CT ANGIO CHEST CONTRAST on DOS: 05/25/24 XY CHEST PORTABLE on DOS: 03/22/25, XY CHEST PORTABLE on DOS: 11/09/24, CT CT ANGIO CHEST CONTRAST on DOS: 05/25/24 TECHNICAL DATA: 1 view of the chest was obtained. FINDINGS: Lines and tubes: TD cath is noted. Cardiomediastinal silhouette: Enlarged Pulmonary vasculature: prominent Lung expansion: normal Lung airspace: normal Lung interstitium: normal Pleura: normal Pneumothorax: no Bones: Unremarkable Other: no IMPRESSION: Cardiomegaly with pulmonary vascular congestion. ATED BY: GUANACO SANCHEZ MD DICTATED DATE/TIME: 03/28/251035 SIGNED BY: GUANACO SANCHEZ MD SIGNED DATE/TIME: 03/28/251035 CC: Time of 1ST Reevaluation: 10:00 Reevaluation 1ST: Unchanged Patient Education/Counseling: Diagnosis, Treatment Family Education/Counseling: No Family Present SEPSIS Sepsis Screen Date sepsis recognized/suspect: Mar 28, 2025 Time Sepsis recognized/suspect: 919 Recent Procedure: No On Antibiotic Therapy: No Respiratory Rate >20: Yes Heart Rate >90: Yes Temp<36 C (96.8 F) or >38.3 C: No SBP <90 or MAP <65 mmHG: No New Acute Mental Status Change: No Is the patient on CPAP, BIPAP,: No Physician Orders Chest Portable (03/28/25 09:25) Urinalysis (03/28/25 09:25) *Dr. Farah [facility] (03/28/25 09:41) Calcium Gluc 1,000mg/50ml-Ns (03/28/25 11:15) Vital Signs Date Time Temp Pulse Resp B/P (MAP) Pulse Ox O2 Delivery O2 Flow Rate FiO2 03/28/25 11:23 20 94 Room Air* 0 21 03/28/25 11:04 97 Room Air* 2 N/A Nasal Cannula* 03/28/25 11:02 96 18 97 Room Air 03/28/25 11:02 97.6 96 18 170/115 (133) 97 97.6 03/28/25 09:57 97 03/28/25 09:20 98.1 98 31 148/69 98 98.1 03/28/25 09:12 97 Laboratory Tests Test 03/28/25 10:02 White Blood Count 9.7 10^3/uL (4.4-10.8) Medications Medications Dose Ordered Sig/Sandor Route Start Time Stop Time Status Last Admin Dose Admin Albuterol 20 mg ONCE ONCE NEB 03/28/25 11:15 03/28/25 11:16 DC 03/28/25 11:23 Departure 1 Departure Time of Disposition: 11:19 Impression: Primary Impression: Acute exacerbation of CHF (congestive heart failure) Qualified Codes: I50.43 - Acute on chronic combined systolic (congestive) and diastolic (congestive) heart failure Additional Impressions: ESRD needing dialysis Hyperkalemia Disposition: ADMITTED INPATIENT Admit to: Med Surg Condition: Guarded Critical Care Note Critical Care Time?: Yes (90 min-critical care time only) Stability Stability form required: No Heart Score Heart Score: Heart Score Response (Comments) Value History Slightly Suspicious 0 EKG Normal 0 Age 45-64 1 Risk Factors >3 or Hx ASHD 2 Troponin Normal limit 0 Total 3 I personally scribed for CARMELITA MROROW MD ([email or web address]) on 03/28/25 at 09:42. Electronically submitted by Frances Almanzar ([employer]). I personally scribed for CARMELITA MORROW MD ([email or web address]) on 03/28/25 at 09:54. Electronically submitted by Frances Almanzar ([employer]). I personally scribed for CARMELITA MORROW MD ([email or web address]) on 03/28/25 at 09:57. Electronically submitted by Frances Almanzar ([employer]). I personally scribed for CARMELITA MORROW MD ([email or web address]) on 03/28/25 at 11:27. Electronically submitted by Frances Almanzar ([employer]). CARMELITA MORROW MD Mar 28, 2025 09:42
[2025-03-28 10:13] LABS: Hematocrit 43.2 % (41.0-53.0); Hemoglobin 14.0 g/dL (13.5-17.5); Mean Corpuscular Hemoglobin 31.7 pg (28.0-32.0); Mean Corpuscular Volume 98.1 fL (80.0-100.0); Nucleated Red Blood Cells % 0.3 %
[2025-03-28 10:24] LABS: Sodium 138 mmol/L (136-145)
[2025-03-28 10:25] LABS: Anion Gap 24 (5-15)
[2025-03-28 10:27] LABS: Calcium 8.5 mg/dL (8.7-10.4); Carbon Dioxide 18 mmol/L (20-31); Chloride 96 mmol/L (98-107); Potassium 5.3 mmol/L (3.5-5.1)
[2025-03-28 10:30] LABS: BUN/Creatinine Ratio 4.7 (10.0-20.0); Blood Urea Nitrogen 48 mg/dL (9-23); Glucose 80 mg/dL (74-106)
--- NOTE | 2025-03-28 10:38 | DVH ---
XY CHEST PORTABLE, HISTORY: sob COMPARISON: XY CHEST PORTABLE on DOS: 03/22/25, XY CHEST PORTABLE on DOS: 11/09/24, CT CT ANGIO CHEST CO NTRAST on DOS: 05/25/24 XY CHEST PORTABLE on DOS: 03/22/25, XY CHEST PORTABLE on DOS: 11/09/24, CT CT ANGIO CHEST CONTRAST on DO S: 05/25/24 TECHNICAL DATA: 1 view of the chest was obtained. FINDINGS: Lines and tubes: TD cath is noted. Cardiomediastinal silhouette: Enlarged Pulmonary vasculature: prominent Lung expansion: normal Lung airspace: normal Lung interstitium: normal Pleura: normal Pneumothorax: no Bones: Unremarkable Other: no IMPRESSION: Cardiomegaly with pulmonary vascular congestion.
[2025-03-28] MEDS ORDERED: CALCIUM GLUC 1,000mg/50ml-NS 50 ML IV ONE (11:15)
[2025-03-28] MEDS: ALBUTEROL SULF 2.5 MG/0.5ML(0.5%) NEB SOLN NEB ONE (11:23)
[2025-03-28] MEDS: SODIUM ZIRCONIUM CYCL 10 GM PAK PO ONE (11:46)
[2025-03-28] MEDS: FUROSEMIDE 40 MG/4 ML VIAL IV ONE (11:50)
[2025-03-28 11:51] LABS: Urine Protein, UAD 3+ (Negative)
--- NOTE | 2025-03-28 12:57 | DVHHP2 ---
History of Present Illness Reason for Visit: sob History of Present Illness 59-year-old male with past medical history of ESRD on hemodialysis (M/W/F), CHF, hypertension, and history of PTCA presents with shortness of breath and sensation of fluid in his lungs for one day. The patient reports that his last dialysis was on Saturday and that he skipped yesterdays scheduled session because he was too busy and did not feel like going. He denies drinking more than usual but admits to exceeding his prescribed 2-liter daily fluid restriction, consuming approximately 15 bottles of water per day. He reports noncompliance with his heart medications but states he has been taking his BP medications as prescribed. He also reports body aches and pain, but denies chest pain, cough, fever, leg swelling, or recent caffeine use. He denies recent illness. In the ED, creatinine was 10.14, BUN 48, BNP >5000, calcium 8.5, potassium 5.3, chloride 96, and CO? 18. Hyperkalemia protocol was initiated. Chest X-ray revealed pulmonary vascular congestion. Patient reports he is still able to urinate despite his ESRD. His prepress technician is Dr. Davey. Given these findings, the patient will be admitted for further management, diuresis, and nephrology consultation for likely urgent dialysis today. Past Medical History See HPI above Past Surgical History See HPI above Family History Reviewed, non-contributory to the management of this case. Past Social History The patient lives at home, denies smoking, alcohol or illicit drugs abuse. Review of Systems Constitutional: No: Fever, Chills, Sweats, Weakness, Malaise, Other Eyes: No: Pain, Vision change, Conjunctivae inflammation, Eyelid inflammation, Other, Redness ENT: No: Ear pain, Ear discharge, Nose pain, Nose discharge, Nose congestion, Mouth pain, Mouth swelling, Throat pain, Throat swelling, Other Respiratory: Shortness of breath, SOB with excertion; No: Cough, Dry, Wheezing, Hemoptysis, Pleuritic Pain, Sputum, Wheezing, Other Cardiovascular: No: Chest Pain, Palpitations, Orthopnea, Paroxysmal Noc. Dyspnea, Edema, Lt Headedness, Other Gastrointestinal: No: Nausea, Vomiting, Abdominal Pain, Diarrhea, Constipation, Melena, Hematochezia, Other Genitourinary: No Dysuria, No Frequency, No Incontinence, No Hematuria, No Retention, No Other Musculoskeletal: No: other, neck pain, shoulder pain, arm pain, back pain, hand pain, leg pain, foot pain Skin: No: Rash, Lesions, Jaundice, Bruising, Other Neurological: No: Weakness, Numbness, Incoordination, Change in speech, Confusion, Seizures, Other Allergies: Coded Allergies: NO KNOWN ALLERGIES (Unverified , 05/13/23) Medications Current Medications Medications Dose Ordered Sig/Sandor Route Start Time Stop Time Status Last Admin Dose Admin Ondansetron HCl 4 mg Q4HP PRN IV 03/28/25 13:00 UNV Docusate Sodium 100 mg BIDPRN PRN PO 03/28/25 13:00 UNV Enoxaparin Sodium 30 mg DAILY SC 03/29/25 10:00 UNV Exam Vital Signs Vital Signs Date Time Temp Pulse Resp B/P (MAP) Pulse Ox O2 Delivery O2 Flow Rate FiO2 03/28/25 12:53 101 22 167/110 (129) 98 03/28/25 11:23 Room Air* 0 21 03/28/25 11:02 97.6 97.6 General Appearance: Alert, Oriented X3, Cooperative, mild distress HEENT: Atraumatic, PERRLA, EOMI, Mucous membr. moist/pink Respiratory: Other (Coarse rales heard throughout) Cardiovascular: Regular rate, Normal S1, Normal S2, No murmurs Abdominal: Normal bowel sounds, Soft, No tenderness, No hepatospenomegaly, No masses Extremities: No clubbing, No cyanosis, No edema, Normal pulses, No tenderness/swelling Skin: No rashes, No breakdown, No significant lesion Neuro: Normal gait, Normal speech, Strength at 5/5 X4 ext, Normal tone, Sensation intact, Cranial nerves 3-12 NL Psych/Mental Status: Mental status NL, Mood NL Labs/Xrays Chest x-ray shows pulmonary vascular congestion I reviewed labs, imaging CT scan abdomen pelvis, EKG and all diagnostic studies on this patient from ED records and the medical chart Labs Test 03/28/25 10:55 03/28/25 10:02 Range/Units Urine Color Yellow Yellow Urine Clarity Turbid H Clear Urine pH 6.5 5.0-9.0 Urine Specific [place] 1.020 1.001-1.035 Urine Protein 3+ H Negative Urine Ketones Negative Negative Urine Blood 2+ H Negative /uL Urine Nitrite Negative Negative Urine Bilirubin Negative Negative Urine Urobilinogen Normal Negative mg/dL Urine Leukocyte Esterase Negative Negative /uL Urine Glucose 1+ H Normal mg/dL White Blood Count 9.7 4.4-10.8 10^3/uL Red Blood Count 4.40 L 4.5-5.90 10^6/uL Hemoglobin 14.0 13.5-17.5 g/dL Hematocrit 43.2 # 41.0-53.0 % Mean Corpuscular Volume 98.1 # 80.0-100.0 fL Mean Corpuscular Hemoglobin 31.7 28.0-32.0 pg Mean Corpuscular Hemoglobin Concent 32.3 32.0-36.0 g/dL Red Cell Distribution Width 18.0 H 11.8-14.3 % Platelet Count 118 L 140-450 10^3/uL Mean Platelet Volume 9.9 6.9-10.8 fL Neutrophils (%) (Auto) 65.7 37.0-80.0 % Lymphocytes (%) (Auto) 15.7 10.0-50.0 % Monocytes (%) (Auto) 15.4 H 0.0-12.0 % Eosinophils (%) (Auto) 1.8 0.0-7.0 % Basophils (%) (Auto) 1.4 0.0-2.0 % Neutrophils # (Auto) 6.4 1.6-8.6 10 ^3/uL Lymphocytes # (Auto) 1.5 0.4-5.4 10 ^3/uL Monocytes # (Auto) 1.5 H 0-1.3 10 ^3/uL Eosinophils # (Auto) 0.2 0-0.8 10 ^3/uL Basophils # (Auto) 0.1 0-0.2 10 ^3/uL Nucleated Red Blood Cells 0.3 % Sodium Level 138 136-145 mmol/L Potassium Level 5.3 H 3.5-5.1 mmol/L Chloride Level 96 L 98-107 mmol/L Carbon Dioxide Level 18 L 20-31 mmol/L Anion Gap 24 H 5-15 Blood Urea Nitrogen 48 H 9-23 mg/dL Creatinine 10.14 *H 0.700-1.30 mg/dL Glomerular Filtration Rate Calc 5 >90 mL/min BUN/Creatinine Ratio 4.7 L 10.0-20.0 Serum Glucose 80 74-106 mg/dL Calcium Level 8.5 L 8.7-10.4 mg/dL B-Type Natriuretic Peptide > 5000.00 0-100 pg/mL SEPSIS Sepsis Screen Date sepsis recognized/suspect: Mar 28, 2025 Time Sepsis recognized/suspect: 919 Recent Procedure: No On Antibiotic Therapy: No Respiratory Rate >20: Yes Heart Rate >90: Yes Temp<36 C (96.8 F) or >38.3 C: No SBP <90 or MAP <65 mmHG: No New Acute Mental Status Change: No Is the patient on CPAP, BIPAP,: No Physician Orders Chest Portable (03/28/25 09:25) *Dr. Cathy Wan -Da Ketty (03/28/25 12:46) Admit (03/28/25 12:46) Allergies (03/28/25 12:46) Code Status (03/28/25 12:46) Renal Standard(2gna,3gk,Lopho) (03/28/25 Lunch) Ondansetron Hcl (Zofran) (03/28/25 13:00) Docusate Sodium Capsule (Colace Capsule) (03/28/25 13:00) Complete Blood Count (03/29/25 04:00) Comprehensive Metabolic Panel (03/29/25 04:00) Condition: Fair (03/28/25 12:46) Enoxaparin Sodium (Lovenox) (03/29/25 10:00) BRP (03/28/25 12:46) Morphine Sulfate Injection (03/28/25 13:00) Sequential Compression Device (03/28/25 ) Nitroglycerin Sublingual (Ntrostat Subli (03/28/25 13:00) Stat Ekg For Chest Pain (03/28/25 12:46) Notify Md Of Changes From Base (03/28/25 12:46) Registered Health Nurse For 24 Hours (03/28/25 12:46) Emergency Dysrhythmia Protocol (03/28/25 12:46) Rhythm Strips Once Every Shift (03/28/25 12:46) Oxygen By Nasal Cannula (03/28/25 12:46) Amiodarone Tablet (Cordarone Tablet) (03/28/25 22:00) Apixaban (Eliquis) (03/28/25 22:00) Aspirin Enteric Coated Tablet (Ecotrin E (03/29/25 10:00) Atorvastatin (Lipitor) (03/29/25 10:00) B-Complex W/ C & Folic Tablet (Nephro-Vi (03/29/25 10:00) Calcium Acetate Capsule (Phoslo Capsule) (03/28/25 18:00) Carvedilol Tablet (Coreg Tablet) (03/28/25 22:00) (Nf) Amlodipine Besylate (03/29/25 10:00) (Nf) Hydralazine Hcl (03/28/25 14:00) (Nf) Trazodone Hcl (03/28/25 18:00) (Nf) Valsartan (03/29/25 10:00) Bumetanide Injection (Bumex Injection) (03/28/25 18:00) Albuterol Medneb (Ventolin Medneb) (03/28/25 13:00) Ipratropium Medneb (Atrovent Medneb) (03/28/25 13:00) Cont Med Neb Intial Tx (03/28/25 12:46) Potassium (03/28/25 12:46) Vital Signs Date Time Temp Pulse Resp B/P (MAP) Pulse Ox O2 Delivery O2 Flow Rate FiO2 03/28/25 12:53 101 22 167/110 (129) 98 03/28/25 11:50 186/123 03/28/25 11:46 186/123 03/28/25 11:23 20 94 Room Air* 0 21 03/28/25 11:04 97 Room Air* 2 N/A Nasal Cannula* 03/28/25 11:02 96 18 97 Room Air 03/28/25 11:02 97.6 96 18 170/115 (133) 97 97.6 03/28/25 09:57 97 03/28/25 09:20 98.1 98 31 148/69 98 98.1 03/28/25 09:12 97 Laboratory Tests Test 03/28/25 10:02 White Blood Count 9.7 10^3/uL (4.4-10.8) Medications Medications Dose Ordered Sig/Sandor Route Start Time Stop Time Status Last Admin Dose Admin Albuterol 20 mg ONCE ONCE NEB 03/28/25 11:15 03/28/25 11:16 DC 03/28/25 11:23 20 MG Amlodipine Besylate 10 mg ONCE ONCE PO 03/28/25 11:15 03/28/25 11:16 DC 03/28/25 11:46 10 MG Furosemide 40 mg ONCE ONCE IV 03/28/25 11:15 03/28/25 11:16 DC 03/28/25 11:50 40 MG Zirconium Oxide 10 gm ONCE ONCE PO 03/28/25 11:15 03/28/25 11:16 DC 03/28/25 11:46 10 GM Assessment/Plan Assessment/Plan 59 yr old male with Acute decompensated heart failure and hypervolemia in ESRD patient due to missed dialysis session, requiring inpatient diuresis and urgent hemodialysis. Acute decompensated heart failure in ESRD seen on cxr and bnp >5000 Admit to plumbing service technician strict I/O, daily weights IV diuretics bumex Fluid restriction to 1.5 Sodium-restricted diet Oxygen as needed to maintain SpO? 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 closely acute Hyperkalemia Hyperkalemia protocol initiated in ED Repeat BMP in 4 hours Monitor cardiac rhythm on telemetry Hypertension Continue home antihypertensives Hold if hypotensive after dialysis CHRONIC PROBLEM LIST: ESRD on hemodialysis mwf schedule CHF Hypertension History of PTCA FEN/PPx: Fluids: Restrict to 1.5 Electrolytes: Monitor and replete as needed Nutrition: Renal diet, low potassium, low sodium DVT Prophylaxis: lovenox GI Prophylaxis: Not indicated unless additional risk factors develop Disposition: Admit to telemetry for volume management, nephrology-directed urgent dialysis, and heart failure optimization. Discharge when euvolemic and stable on home dialysis schedule. Plan discussed with: Patient My Orders Orders - CALIXTO KANG DNP Procedure Category Date Status Time *Dr. Cathy Wan -[place]il[place] CONS 03/28/25 Transmitted Ketty 12:46 Admit ADMIT 03/28/25 Transmitted 12:46 Allergies HARJINDER 03/28/25 In Process 12:46 Code Status CODE 03/28/25 Transmitted 12:46 Renal DIET 03/28/25 Transmitted Standard(2gna,3gk,Lopho) Lunch Ondansetron Hcl PHA 03/28/25 Transmitted (Zofran) 13:00 Docusate Sodium PHA 03/28/25 Transmitted Capsule (Colace 13:00 Complete Blood Count LAB 03/29/25 Verified 04:00 Comprehensive LAB 03/29/25 Verified Metabolic Panel 04:00 Condition: Fair HARJINDER 03/28/25 In Process 12:46 Enoxaparin Sodium PHA 03/29/25 Transmitted (Lovenox) 10:00 BRP HARJINDER 03/28/25 In Process 12:46 Morphine Sulfate PHA 03/28/25 Transmitted Injection 13:00 Sequential HARJINDER 03/28/25 In Process Compression Device Nitroglycerin PHA 03/28/25 Transmitted Sublingual (Ntrostat 13:00 Stat Ekg For Chest HARJINDER 03/28/25 In Process Pain 12:46 Notify Of Changes HARJINDER 03/28/25 In Process From Base 12:46 Registered Health Nurse For [facility] 03/28/25 In Process 24 Hours 12:46 Emergency Dysrhythmia HARJINDER 03/28/25 In Process Protocol 12:46 Rhythm Strips Once [facility] 03/28/25 In Process Every Shift 12:46 Oxygen By Nasal RT 03/28/25 Transmitted Cannula 12:46 Amiodarone Tablet PHA 03/28/25 Transmitted (Cordarone Tablet) 22:00 Apixaban (Eliquis) PHA 03/28/25 Transmitted 22:00 Aspirin Enteric PHA 03/29/25 Transmitted Coated Tablet 10:00 Atorvastatin (Lipitor) PHA 03/29/25 Transmitted 10:00 B-Complex W/ C & PHA 03/29/25 Transmitted Folic Tablet 10:00 Calcium Acetate PHA 03/28/25 Transmitted Capsule (Phoslo 18:00 Carvedilol Tablet PHA 03/28/25 Transmitted (Coreg Tablet) 22:00 (Nf) Amlodipine PHA 03/29/25 Transmitted Besylate 10:00 (Nf) Hydralazine Hcl PHA 03/28/25 Transmitted 14:00 (Nf) Trazodone Hcl PHA 03/28/25 Transmitted 18:00 (Nf) Valsartan PHA 03/29/25 Transmitted 10:00 Bumetanide Injection PHA 03/28/25 Transmitted (Bumex Injection) 18:00 Albuterol Medneb PHA 03/28/25 Transmitted (Ventolin Medneb) 13:00 Ipratropium Medneb PHA 03/28/25 Transmitted (Atrovent Medneb) 13:00 Cont Med Neb Intial Tx RT 03/28/25 Logged 12:46 Potassium LAB 03/28/25 Logged 12:46 Date of Service: Mar 28, 2025 Billing Provider: CALIXTO KANG DNP Common Visit Codes: [id number] INP/OBS CARE (HIGH) CALIXTO KANG DNP Mar 28, 2025 12:57
[2025-03-28] MEDS ORDERED: IPRATROPIUM BROM 0.5 MG/2.5ML INH SOL NEB PRN (13:00)
[2025-03-28] MEDS ORDERED: ALBUTEROL SULF 2.5 MG/0.5ML(0.5%) NEB SOLN NEB PRN (13:00)
[2025-03-28] MEDS ORDERED: MORPHINE SULFATE INJ 2 MG/ml SYRG IV PRN (13:00)
[2025-03-28] MEDS ORDERED: DOCUSATE SOD 100 MG CAP PO PRN (13:00)
[2025-03-28] MEDS ORDERED: NITROGLYCERIN 0.4 MG SL TAB SL PRN (13:00)
[2025-03-28] MEDS ORDERED: ONDANSETRON HCL 4 MG/2 ML VIAL IV PRN (13:00)
[2025-03-28 14:06] VITALS: BP 167/110; PULSE 97; RESP 20; TEMP 97.6; O2SAT 94
[2025-03-28] MEDS ORDERED: CALCIUM ACETATE 667 MG CAP PO SCH (18:00)
[2025-03-28] MEDS ORDERED: BUMETANIDE 1mg/4ml VIAL (0.25mg/ml) IV SCH (18:00)
[2025-03-28] MEDS ORDERED: AMIODARONE HCL 200 MG TAB PO SCH (22:00)
[2025-03-28] MEDS ORDERED: ATORVASTATIN 20 MG TAB PO SCH (22:00)
[2025-03-28] MEDS ORDERED: APIXABAN 5 MG TAB PO SCH (22:00)
[2025-03-28] MEDS ORDERED: CARVEDILOL 12.5 MG TAB PO SCH (22:00)
[2025-03-29] MEDS ORDERED: SODIUM CHL 0.9% 1000 ML BAG XX ONE (07:00)
[2025-03-29] MEDS ORDERED: ENOXAPARIN SOD 30 MG/0.3 ML SYRINGE SC SCH (10:00)
[2025-03-29] MEDS ORDERED: VALSARTAN 80 MG TAB PO SCH (10:00)
[2025-03-29] MEDS ORDERED: ASPirin-EC 81 mg tab PO SCH (10:00)
[2025-03-29] MEDS ORDERED: B-COMPLEX W/ C & FOLIC ACID(NEPHROVITE TAB) PO SCH (10:00)
== END 2025-03-28 16:41 | disposition left against medical advice (07) | DRG 194 ==
LOC: EDBD 09:06 → ER 09:06 → OVERFLOW 12:46
PROVIDERS: ADMIT Nurse Practitioner Family; ATTEND Nurse Practitioner Family
DX: I13.2 Hypertensive heart and chronic kidney disease with heart failure and with stage 5 chronic kidney disease, or end stage renal disease (principal); N18.6 End stage renal disease; I50.43 Acute on chronic combined systolic (congestive) and diastolic (congestive) heart failure; Z53.29 Procedure and treatment not carried out because of patient's decision for other reasons; E87.5 Hyperkalemia; J44.9 Chronic obstructive pulmonary disease, unspecified; F17.210 Nicotine dependence, cigarettes, uncomplicated; Z98.61 Coronary angioplasty status; Z91.158 Patient's noncompliance with renal dialysis for other reason; Z91.148 Patient's other noncompliance with medication regimen for other reason; Z99.2 Dependence on renal dialysis
CPT/HCPCS: 36415; 71045; 80048; 81003; 83880; 85025; 93005; 94640; 99291; 99292; G0378

== ENCOUNTER 2025-04-24 15:36 | Inpatient (IN) | payer MEDICAID ==
[~2025-04-24] VITALS: Ht 188 cm; Wt 100.0 kg
--- NOTE | 2025-04-24 16:12 | ED.PDOC ---
History of Present Illness HPI Comments 60-year-old male VICENTE with prior medical history of hypertension, diabetes, CKD, CHF, COPD, ESRD (M, W, F): Surgical history of PTCA and then chief complaint of being lethargic. Patient reports on not being able to sleep for one month due from anxiety, recently in [place] and they wanted to admit the patient into the hospital due from something relating to my heart but the patient left due from it being his birthday that they. Patient came in via EMS from his dialysis center after dialysis nurses called stating that the patient is lethargic. Patient did get the full treatment. Patient notes that he did not go to his dialysis yesterday and was informed to go today for 2 hours. Blood sugar on scene was 86. Denies chills, fever, N/V/D, SOB, CP. No other associated symptoms, modifiers, recent injuries or sick contacts present at this time. Time Seen by MD: 16:15 Primary Care Provider: Nura Reviewed Notes: Nurses Notes, Music Executive Notes, Medications, Allergies Allergies: Coded Allergies: NO KNOWN ALLERGIES (Unverified , 05/13/23) Home Meds Active Scripts Sodium Zirconium Cyclosilicate (Lokelma) 10 Gm Zaheer, 10 GM PO DAILY for 30 Days, #30 PACK Prov:ALLA MARRERO RESIDENT 11/12/24 Azithromycin (ZITHROMAX TABLET) 250 Mg Tb, 250 MG PO DAILY for 5 Days, #5 TAB Prov:ALLA MARRERO RESIDENT 11/12/24 Azithromycin (Zithromax Z-Zaheer) 250 Mg Tab, 250 MG PO DAILY for 4 Days, #4 TAB Prov:DALILA RESENDIZ RESIDENT 05/27/24 Apixaban Base (ELIQUIS) 5 Mg Tab, 5 MG PO BID for 30 Days, #60 TAB Prov:DALILA RESENDIZ RESIDENT 05/27/24 Amiodarone HCl (Amiodarone HCl) 200 Mg Tab, 200 MG PO Q12HR for 30 Days, #60 TAB Prov:DALILA RESENDIZ RESIDENT 05/27/24 Reported Medications B-Complex W/ C & Folic Acid ([place]) Tab, 1 TAB PO DAILY for 30 Days, #30 05/26/24 Amlodipine Besylate (Amlodipine Besylate) 10 Mg Tab, 1 TAB PO DAILY for 30 Days, #30 05/26/24 Valsartan (Valsartan) 160 Mg Tab, 160 MG PO DAILY, TAB 06/10/23 Trazodone Hcl (Trazodone Hcl) 100 Mg Tab, 1 TAB PO QPM, #30 TAB 1 Refill 05/13/23 Carvedilol (Carvedilol) 12.5 Mg Tab, 1 TAB PO BID, #180 TAB 1 Refill 05/13/23 Bumetanide (Bumetanide) 2 Mg Tab, 1 TAB PO DAILY for 60 Days, #60 05/13/23 Hydralazine Hcl (Hydralazine Hcl) 50 Mg Tab, 100 MG PO TID for 30 Days, MG 05/13/23 Atorvastatin Calcium (ATORVASTATIN CALCIUM) 20 Mg Tab, 1 TAB PO DAILY, #30 TAB 5 Refills 05/13/23 Aspirin (ASPIRIN 81) 81 Mg Tab, 1 TAB PO DAILY for 30 Days, #30 05/13/23 Calcium Acetate (Phosphate Bin (Calcium Acetate) 667 Mg Cap, 2 CAP PO TIDWM for 30 Days, #270 05/13/23 Information Source: Patient, Emergency Med Personnel Mode of Arrival: EMS Severity: Moderate Timing: Minutes Duration: Since onset, Minutes Prehospital treatment: None Past Medical History PAST MEDICAL HISTORY: CHF, CKF, COPD, DM, ESRD (M, W, F), HTN Surgical History: PTCA Family History Family History: Reviewed,noncontributory to illness, Unknown Social History Smoker: Unknown Alcohol: Unknown Drugs: Unknown Lives In: Home Constitutional: reports: weakness (Patient looks and acts lethargic); denies: chills, diaphoresis, fatigue, fever, malaise, sweats, others EENTM: denies: blurred vision, double vision, ear bleeding, ear discharge, ear drainage, ear pain, ear ringing, eye pain, eye redness, hearing loss, mouth pain, mouth swelling, nasal discharge, nose bleeding, nose congestion, nose pain, photophobia, tearing, throat pain, throat swelling, voice changes, others Respiratory: denies: cough, hemoptysis, orthopnea, SOB at rest, shortness of breath, SOB with excertion, stridor, wheezing, others Cardiovascular: denies: chest pain, dizzy spells, diaphoresis, Dyspnea on exertion, edema, irregular heart beat, left arm pain, lightheadedness, palpitations, PND, syncope, others Gastrointestinal: denies: abdomen distended, abdominal pain, blood streaked bowels, constipated, diarrhea, dysphagia, difficulty swallowing, hematemesis, melena, nausea, poor appetite, poor fluid intake, rectal bleeding, rectal pain, vomiting, others Genitourinary: denies: burning, dysuria, flank pain, frequency, hematuria, incontinence, penile discharge, penile sore, pain, testicle pain, testicle swelling, urgency, others Neurological: denies: dizziness, fainting, headache, left sided numbness, left sided weakness, numbness, paresthesia, pre-existing deficit, right sided numbness, right sided weakness, seizure, speech problems, tingling, tremors, weakness, others Musculoskeletal: denies: back pain, gout, joint pain, joint swelling, muscle pain, muscle stiffness, neck pain, others Integumetry: denies: bruises, change in color, change in hair/nails, dryness, laceration, lesions, lumps, rash, wounds, others Allergic/Immunocompromised: denies: Difficulty Healing, Frequent Infections, Hives, Itching, others Hematologic/Lymphatic: denies: anemia, blood clots, easy bleeding, easy bruising, swollen glands, others Endocrine: denies: excessive hunger, excessive sweating, excessive thirst, excessive urination, flushing, intolerance to cold, intolerance to heat, unexplained weight gain, unexplained weight loss, others Psychiatric: denies: anxiety, bipolar disorder, depression, hopeless, panic disorder, schizophrenia, sleepless, suicidal, others All Other Systems: Reviewed and Negative Physical Exam General Appearance: No Apparent Distress, Normal HEENT: Normal ENT Inspection, Pharynx Normal, TMs Normal Neck: Full Range of Motion, Non-Tender, Normal, Normal Inspection Respiratory: Chest Non-Tender, Lungs Clear, No Accessory Muscle Use, No Respiratory Distress, Normal Breath Sounds Cardiovascular: No Edema, No JVD, No Murmur, No Gallop, Normal Peripheral Pulses, Regular Rate/Rhythm Breast Exam: Deferred Gastrointestinal: No Organomegaly, Non Tender, No Pulsatile Mass, Normal Bowel Sounds, Soft Genitalia: Deferred Pelvic: Deferred Rectal: Deferred Extremities: No calf tenderness, Normal capillary refill, Normal inspection, Normal range of motion, Non-tender, No pedal edema Musculoskeletal : Apperance: Normal Neurologic: Alert, ticker maintainer II-XII nml as Tested, No Motor Deficits, Normal Affect, Normal Mood, No Sensory Deficits Cerebellar Function: Normal Reflexes: Normal Skin: Dry, Normal Color, Warm Lymphatic: No Adenopathy Was a procedure done? Was a procedure done?: No EKG EKG : [place]: Normal Block: None Hypertrophy: None ST: Normal Comments Rapid sinus arrhythmia Differential Dx Considerations may include: Anemia Electrolyte imbalance X-Ray, Labs, Meds, VS Vital Signs Date Time Temp Pulse Resp B/P (MAP) Pulse Ox O2 Delivery O2 Flow Rate FiO2 04/24/25 16:26 119 Lab Test 04/24/25 16:06 Range/Units White Blood Count 7.5 4.4-10.8 10^3/uL Red Blood Count 4.08 L 4.5-5.90 10^6/uL Hemoglobin 13.2 L 13.5-17.5 g/dL Hematocrit 39.6 L 41.0-53.0 % Mean Corpuscular Volume 97.2 80.0-100.0 fL Mean Corpuscular Hemoglobin 32.4 H 28.0-32.0 pg Mean Corpuscular Hemoglobin Concent 33.3 32.0-36.0 g/dL Red Cell Distribution Width 18.7 H 11.8-14.3 % Platelet Count 126 L 140-450 10^3/uL Mean Platelet Volume 9.9 6.9-10.8 fL Neutrophils (%) (Auto) 65.5 37.0-80.0 % Lymphocytes (%) (Auto) 16.3 10.0-50.0 % Monocytes (%) (Auto) 13.3 H 0.0-12.0 % Eosinophils (%) (Auto) 4.3 0.0-7.0 % Basophils (%) (Auto) 0.6 0.0-2.0 % Neutrophils # (Auto) 4.9 1.6-8.6 10 ^3/uL Lymphocytes # (Auto) 1.2 0.4-5.4 10 ^3/uL Monocytes # (Auto) 1.0 0-1.3 10 ^3/uL Eosinophils # (Auto) 0.3 0-0.8 10 ^3/uL Basophils # (Auto) 0 0-0.2 10 ^3/uL Nucleated Red Blood Cells 0.0 % Sodium Level 138 136-145 mmol/L Potassium Level 3.5 3.5-5.1 mmol/L Chloride Level 96 L 98-107 mmol/L Carbon Dioxide Level 30 20-31 mmol/L Anion Gap 12 5-15 Blood Urea Nitrogen 21 9-23 mg/dL Creatinine 4.92 H 0.700-1.30 mg/dL Glomerular Filtration Rate Calc 13 >90 mL/min BUN/Creatinine Ratio 4.3 L 10.0-20.0 Serum Glucose 78 74-106 mg/dL Calcium Level 8.7 8.7-10.4 mg/dL Total Bilirubin 1.1 H 0.2-1.0 mg/dL Aspartate Amino Transferase (AST) 27 13-40 U/L Alanine Aminotransferase (ALT) 18 7-40 U/L Alkaline Phosphatase 157 H 46-116 U/L Troponin I High Sensitivity 295 *H </=54 ng/L Total Protein 7.5 5.7-8.2 g/dL Albumin 4.3 3.2-4.8 g/dL Patient alert. Came from dialysis. Cardiac marker elevated. Elevated kidney function. Demand ischemia. EKG does show chronic changes. Explained to the patient. Time of 1ST Reevaluation: 16:45 Reevaluation 1ST: Unchanged Patient Education/Counseling: Diagnosis, Treatment, Prognosis Family Education/Counseling: No Family Present SEPSIS Sepsis Screen Physician Orders Chest Portable (04/24/25 15:48) Urinalysis (04/24/25 15:48) Troponin-I Hs (04/24/25 16:48) Troponin-I Hs (04/24/25 18:48) Electrocardigram (04/24/25 16:31) Vital Signs Date Time Temp Pulse Resp B/P (MAP) Pulse Ox O2 Delivery O2 Flow Rate FiO2 04/24/25 16:26 119 Laboratory Tests Test 04/24/25 16:06 White Blood Count 7.5 10^3/uL (4.4-10.8) Departure 1 Departure Time of Disposition: 18:06 Impression: Primary Impression: Acute exacerbation of CHF (congestive heart failure) Qualified Codes: I50.43 - Acute on chronic combined systolic (congestive) and diastolic (congestive) heart failure Additional Impressions: ESRD needing dialysis Demand ischemia Disposition: ADMITTED INPATIENT Admit to: Med Surg Condition: Guarded Critical Care Note Critical Care Time?: Yes (90 min-critical care time only) Stability Stability form required: No Heart Score Heart Score: Heart Score Response (Comments) Value History Slightly Suspicious 0 EKG Normal 0 Age 45-64 1 Risk Factors >3 or Hx ASHD 2 Troponin >3 x's Normal limit 2 Total 5 I personally scribed for CARMELITA MORROW MD ([email or web address]) on 04/24/25 at 16:12. Electronically submitted by Guillermo Mckinley ([email or web address]). I personally scribed for CARMELITA MORROW MD ([email or web address]) on 04/24/25 at 16:18. E lectronically submitted by Guillermo Mckinley ([email or web address]). I personally scribed for CARMELITA MORROW MD ([email or web address]) on 04/24/25 at 16:30. Electronically submitted by Guillermo Mckinley ([email or web address]). CARMELITA MORROW MD Apr 24, 2025 16:12
[2025-04-24 16:19] LABS: Hematocrit 39.6 % (41.0-53.0); Hemoglobin 13.2 g/dL (13.5-17.5); Mean Corpuscular Hemoglobin 32.4 pg (28.0-32.0); Mean Corpuscular Volume 97.2 fL (80.0-100.0); Nucleated Red Blood Cells % 0.0 %
--- NOTE | 2025-04-24 16:26 | DVH ---
CHEST RADIOGRAPH Indication: sob Technique: Single frontal view of the chest was obtained Comparison: XY CHEST PORTABLE on DOS: 03/28/25, XY CHEST PORTABLE on DOS: 03/22/25, XR CHEST 1 VIEW on D OS: 02/15/25 FINDINGS: Lines and Tubes: Right internal jugular catheter in place unchanged Lungs: No focal consolidation. Pleura: No effusion. No pneumothorax. Cardiomediastinal contours: Cardiomegaly mild pulmonary vascular congestion unchanged from 03/28/2025 . Bones: No acute osseous abnormality. IMPRESSION: 1. Cardiomegaly mild pulmonary vascular congestion unchanged from
[2025-04-24 16:33] LABS: Alanine Aminotransferase 18 U/L (7-40); Albumin 4.3 g/dL (3.2-4.8); Anion Gap 12 (5-15); BUN/Creatinine Ratio 4.3 (10.0-20.0); Blood Urea Nitrogen 21 mg/dL (9-23); Calcium 8.7 mg/dL (8.7-10.4); Carbon Dioxide 30 mmol/L (20-31); Glucose 78 mg/dL (74-106); Sodium 138 mmol/L (136-145); Total Protein 7.5 g/dL (5.7-8.2)
[2025-04-24 16:34] LABS: Bilirubin, Total 1.1 mg/dL (0.2-1.0)
[2025-04-24 16:48] LABS: Alkaline Phosphatase 157 U/L (46-116); Chloride 96 mmol/L (98-107); Potassium 3.5 mmol/L (3.5-5.1)
[2025-04-24 18:54] VITALS: PULSE 110; RESP 14; O2SAT 96
[2025-04-24 20:14] VITALS: BP 117/81; PULSE 115; RESP 20; TEMP 98.1; O2SAT 97
[2025-04-24] MEDS ORDERED: DOCUSATE SOD 100 MG CAP PO PRN (21:00)
[2025-04-24] MEDS ORDERED: hydrALAZINE HCL 20 MG/ML VL IV PRN (21:00)
[2025-04-24] MEDS ORDERED: ONDANSETRON HCL 4 MG/2 ML VIAL IV PRN (21:00)
[2025-04-24] MEDS ORDERED: HYDROcodone-ACET 5/325MG TAB PO PRN (21:00)
[2025-04-24] MEDS ORDERED: ACETAMINOPHEN 325 MG TAB PO PRN (21:00)
[2025-04-24] MEDS ORDERED: DEXTROSE (50%) 50ML SYRG IV PRN (21:00)
[2025-04-24] MEDS ORDERED: ATORVASTATIN 20 MG TAB PO SCH (22:00)
[2025-04-24] MEDS ORDERED: InsuLIN REG 1unit/0.01ml Soln (100units/ml) SC SCH (22:00)
[2025-04-24] MEDS ORDERED: ACCU-CHEK COMFORT CURVE STRIP VI SCH (22:00)
[2025-04-24] MEDS ORDERED: CARVEDILOL 3.125 MG TAB PO SCH (22:00)
--- NOTE | 2025-04-24 22:23 | DVHHP2 ---
History of Present Illness Reason for Visit: Generalized weakness History of Present Illness The patient is a 60-year-old male with multiple past medical history including CHF, end-stage renal disease on hemodialysis M-W-F, hypertension, COPD, and diabetes mellitus presented to [facility] ED with complaint of gene ralized weakness. Patient reports not able to sleep for 1 month due from anxiety, recently seen at [facility] and was to be admitted, but the patient left due to his birthday that day. Patient came in via EMS from his dialysis center after dialysis nurses called stating that the patient is lethargic. Patient notes that he did not go to his dialysis yesterday and was informed to go today for 2 hours. Patient was seen and evaluated in the ED, laboratory data shows WBC 7.5, hemoglobin 13.2, hematocrit 39.6, platelets 126, sodium 138, potassium 3.5, BUN 21, creatinine 4.92, glucose 78, calcium 8.7, troponin 286, blood pressure 118/80, heart rate 1 one 0, temperature 98.1 F, O2 saturation 97% on room air. Chest x-ray revealing cardiomegaly with mild pu lmonary vascular congestion unchanged from March 28, 2025. Please see medication orders section in the computer. On my assessment, patient denied chest pain, no headache, no dizziness, no shortness of breaths, no nausea, no vomiting, no fever, no chills. Patient was admitted for further evaluation and medical management. Past Medical History CHF, CKF, COPD, DM, ESRD (M, W, F), HTN Past Surgical History PTCA Family History Reviewed, noncontributory to the management of this case. Past Social History The patient lives at home, denies smoking, alcohol or illicit drugs abuse. Review of Systems Constitutional: Yes: Weakness, Other (Fatigue); No: Fever, Chills, Sweats, Malaise Eyes: No: Pain, Vision change, Conjunctivae inflammation, Eyelid inflammation, Other, Redness ENT: No: Ear pain, Ear discharge, Nose pain, Nose discharge, Nose congestion, Mouth pain, Mouth swelling, Throat pain, Throat swelling, Other Respiratory: No: Cough, Dry, Shortness of breath, SOB with excertion, Wheezing, Hemoptysis, Pleuritic Pain, Sputum, Wheezing, Other Cardiovascular: No: Chest Pain, Palpitations, Orthopnea, Paroxysmal Noc. Dyspnea, Edema, Lt Headedness, Other Gastrointestinal: No: Nausea, Vomiting, Abdominal Pain, Diarrhea, Constipation, Melena, Hematochezia, Other Genitourinary: No Dysuria, No Frequency, No Incontinence, No Hematuria, No Retention, No Other Musculoskeletal: No: other, neck pain, shoulder pain, arm pain, back pain, hand pain, leg pain, foot pain Skin: No: Rash, Lesions, Jaundice, Bruising, Other Neurological: No: Weakness, Numbness, Incoordination, Change in speech, Confusion, Seizures, Other Allergies: Coded Allergies: NO KNOWN ALLERGIES (Unverified , 05/13/23) Medications Current Medications Medications Dose Ordered Sig/Sandor Route Start Time Stop Time Status Last Admin Dose Admin Aspirin 81 mg DAILY PO 04/25/25 10:00 Atorvastatin Calcium 20 mg HS PO 04/24/25 22:00 Carvedilol 6.25 mg Q12HR PO 04/24/25 22:00 Hydralazine HCl 10 mg Q6HP PRN IV 04/24/25 21:00 Diagnostic Test (Pha) 1 strip ACHS 04/24/25 22:00 Insulin Human Regular ACHS SC 04/24/25 22:00 Dextrose 50 ml UD PRN IV 04/24/25 21:00 Acetaminophen/ Hydrocodone Bitart 1 tab Q4HP PRN PO 04/24/25 21:00 Ondansetron HCl 4 mg Q4HP PRN IV 04/24/25 21:00 Docusate Sodium 100 mg BIDPRN PRN PO 04/24/25 21:00 Acetaminophen 650 mg Q6HP PRN PO 04/24/25 21:00 Sevelamer HCl 800 mg TIDWM PO 04/25/25 08:00 Multivit/Ca Carb/ B Cmplx/FA/Prenat 1 tab DAILY PO 04/25/25 10:00 Trazodone HCl 50 mg HS PO 04/24/25 22:00 Exam Vital Signs Vital Signs Date Time Temp Pulse Resp B/P (MAP) Pulse Ox O2 Delivery O2 Flow Rate FiO2 04/24/25 20:14 115 20 97 Room Air* 0 21 04/24/25 20:14 98.1 117/81 (93) 98.1 General Appearance: Alert, Oriented X3, Cooperative, No acute distress HEENT: Atraumatic, PERRLA, EOMI, Mucous membr. moist/pink Respiratory: Normal air movement Cardiovascular: Regular rate, Normal S1, Normal S2, No murmurs Abdominal: Normal bowel sounds, Soft, No tenderness, No hepatospenomegaly, No masses Extremities: No clubbing, No cyanosis, No edema, Normal pulses, No tenderness/swelling Skin: No rashes, No breakdown, No significant lesion Neuro: Normal speech, Normal tone, Sensation intact, Cranial nerves 3-12 NL, Reflexes 2+, Other (Generalized weakness) Psych/Mental Status: Mental status NL, Mood NL Labs/Xrays Labs Test 04/24/25 21:00 04/24/25 16:06 Range/Units Troponin I High Sensitivity 282 *H </=54 ng/L White Blood Count 7.5 4.4-10.8 10^3/uL Red Blood Count 4.08 L 4.5-5.90 10^6/uL Hemoglobin 13.2 L 13.5-17.5 g/dL Hematocrit 39.6 L 41.0-53.0 % Mean Corpuscular Volume 97.2 80.0-100.0 fL Mean Corpuscular Hemoglobin 32.4 H 28.0-32.0 pg Mean Corpuscular Hemoglobin Concent 33.3 32.0-36.0 g/dL Red Cell Distribution Width 18.7 H 11.8-14.3 % Platelet Count 126 L 140-450 10^3/uL Mean Platelet Volume 9.9 6.9-10.8 fL Neutrophils (%) (Auto) 65.5 37.0-80.0 % Lymphocytes (%) (Auto) 16.3 10.0-50.0 % Monocytes (%) (Auto) 13.3 H 0.0-12.0 % Eosinophils (%) (Auto) 4.3 0.0-7.0 % Basophils (%) (Auto) 0.6 0.0-2.0 % Neutrophils # (Auto) 4.9 1.6-8.6 10 ^3/uL Lymphocytes # (Auto) 1.2 0.4-5.4 10 ^3/uL Monocytes # (Auto) 1.0 0-1.3 10 ^3/uL Eosinophils # (Auto) 0.3 0-0.8 10 ^3/uL Basophils # (Auto) 0 0-0.2 10 ^3/uL Nucleated Red Blood Cells 0.0 % Sodium Level 138 136-145 mmol/L Potassium Level 3.5 3.5-5.1 mmol/L Chloride Level 96 L 98-107 mmol/L Carbon Dioxide Level 30 20-31 mmol/L Anion Gap 12 5-15 Blood Urea Nitrogen 21 9-23 mg/dL Creatinine 4.92 H 0.700-1.30 mg/dL Glomerular Filtration Rate Calc 13 >90 mL/min BUN/Creatinine Ratio 4.3 L 10.0-20.0 Serum Glucose 78 74-106 mg/dL Calcium Level 8.7 8.7-10.4 mg/dL Total Bilirubin 1.1 H 0.2-1.0 mg/dL Aspartate Amino Transferase (AST) 27 13-40 U/L Alanine Aminotransferase (ALT) 18 7-40 U/L Alkaline Phosphatase 157 H 46-116 U/L B-Type Natriuretic Peptide 4195.51 0-100 pg/mL Total Protein 7.5 5.7-8.2 g/dL Albumin 4.3 3.2-4.8 g/dL PATIENT: MESSI CROWDERACCT: [id number] UNIT: [id number] : 1965 LOC: ER ROOM / BED: / AGE / SEX: 60 / M ADM STATUS: REG ER SERVICE 1548 ORDERING PHYSICIAN: CARMELITA MORROW MD PROCEDURE(s): CXRP - CHEST PORTABLE REASON: sob ORDER NUMBER(s): [id number], ACCESSION NUMBER(s): [id number] CHEST RADIOGRAPH Indication: sob Technique: Single frontal view of the chest was obtained Comparison: XY CHEST PORTABLE on DOS: 03/28/25, XY CHEST PORTABLE on DOS: 03/22/25, XR CHEST 1 VIEW on DOS: 02/15/25 FINDINGS: Lines and Tubes: Right internal jugular catheter in place unchanged Lungs: No focal consolidation. Pleura: No effusion. No pneumothorax. Cardiomediastinal contours: Cardiomegaly mild pulmonary vascular congestion unchanged from 03/28/2025. Bones: No acute osseous abnormality. IMPRESSION: 1. Cardiomegaly mild pulmonary vascular congestion unchanged from SEPSIS Sepsis Screen Date sepsis recognized/suspect: Apr 24, 2025 Time Sepsis recognized/suspect: 2018 Recent Procedure: No On Antibiotic Therapy: No Respiratory Rate >20: No Heart Rate >90: No Temp<36 C (96.8 F) or >38.3 C: No SBP <90 or MAP <65 mmHG: No New Acute Mental Status Change: No Is the patient on CPAP, BIPAP,: No Physician Orders Chest Portable (04/24/25 15:48) Urinalysis (04/24/25 15:48) Electrocardigram (04/24/25 16:31) Aspirin Tablet (04/25/25 10:00) Atorvastatin (Lipitor) (04/24/25 22:00) Carvedilol Tablet (Coreg Tablet) (04/24/25 22:00) Hydralazine Injection (Apresoline Inject (04/24/25 21:00) Glucose Blood (Accu-Chek Comfort Curve T (04/24/25 22:00) Insulin R (Human) (Insulin R) (04/24/25 22:00) Dextrose 50% Syringe (04/24/25 21:00) Allergies (04/24/25 20:57) Code Status (04/24/25 20:57) Renal Standard(2gna,3gk,Lopho) (04/25/25 Breakfast) Oxygen Per Hour (04/24/25 20:57) Hydrocodone-Acet 5/325mg Tab ([place] 5/32 (04/24/25 21:00) Ondansetron Hcl (Zofran) (04/24/25 21:00) Docusate Sodium Capsule (Colace Capsule) (04/24/25 21:00) Complete Blood Count (04/25/25 04:00) Comprehensive Metabolic Panel (04/25/25 04:00) Echo 2d Mode Cardiac Dop (04/24/25 20:57) Condition: Serious (04/24/25 20:57) Acetaminophen Tablet (Tylenol Tablet) (04/24/25 21:00) Bedrest With Bathroom Privileg (04/24/25 20:57) Sequential Compression Device (04/24/25 ) Sevelamer (Renagel) (04/25/25 08:00) B-Complex W/ C & Folic Tablet (Nephro-Vi (04/25/25 10:00) Trazodone Hcl (Desyrel) (04/24/25 22:00) Admit (04/24/25 22:19) Nitroglycerin Sublingual (Ntrostat Subli (04/24/25 22:30) Morphine Sulfate Injection (04/24/25 22:30) Stat Ekg For Chest Pain (04/24/25 22:19) Notify Md Of Changes From Base (04/24/25 22:19) Strategic Business Development For 24 Hours (04/24/25 22:19) Emergency Dysrhythmia Protocol (04/24/25 22:19) Rhythm Strips Once Every Shift (04/24/25 22:19) Oxygen By Nasal Cannula (04/24/25 22:19) Vital Signs Date Time Temp Pulse Resp B/P (MAP) Pulse Ox O2 Delivery O2 Flow Rate FiO2 04/24/25 20:14 115 20 97 Room Air* 0 21 04/24/25 20:14 98.1 115 20 117/81 (93) 97 98.1 04/24/25 20:00 122 04/24/25 19:00 110 14 117/91 (100) 96 04/24/25 18:54 110 14 96 Room Air* 0 21 04/24/25 18:04 98.3 113 16 147/105 95 98.3 04/24/25 16:26 119 Laboratory Tests Test 04/24/25 16:06 White Blood Count 7.5 10^3/uL (4.4-10.8) Medications Medications Dose Ordered Sig/Sandor Route Start Time Stop Time Status Last Admin Dose Admin Aspirin 81 mg ONCE ONCE PO 04/24/25 19:00 04/24/25 19:01 DC 04/24/25 19:00 81 MG Assessment/Plan Assessment/Plan Generalized weakness Demand ischemia Elevated troponin ESRD needing dialysis Acute exacerbation of congestive heart failure Plan 1. Admit to telemetry unit 2. Breathing treatment 3. Pain control management 4. Management of fluids and electrolytes 5. Consultation for Nephrology 6. Diagnostic tests chest x-ray 7. DVT prophylaxis-on aspirin 8. Repeat labs CBC, CMP in a.m. 9. Continue with current medical management 10. Treatment plan discussed with patient and RN. Patient verbalized understanding, but left AMA. Plan discussed with: Patient, Other (RN) My Orders Orders - LEV GUERRERO DNP Procedure Category Date Status Time Aspirin Tablet PHA 04/25/25 In Process 10:00 Atorvastatin (Lipitor) PHA 04/24/25 In Process 22:00 Carvedilol Tablet PHA 04/24/25 In Process (Coreg Tablet) 22:00 Hydralazine Injection PHA 04/24/25 In Process (Apresoline Inject 21:00 Glucose Blood PHA 04/24/25 In Process (Accu-Chek Comfort 22:00 Insulin R (Human) PHA 04/24/25 In Process (Insulin R) 22:00 Dextrose 50% Syringe PHA 04/24/25 In Process 21:00 Allergies HARJINDER 04/24/25 In Process 20:57 Code Status CODE 04/24/25 Transmitted 20:57 Renal DIET 04/25/25 Transmitted Standard(2gna,3gk,Lopho) Breakfast Oxygen Per Hour RT 04/24/25 Transmitted 20:57 Hydrocodone-Acet PHA 04/24/25 In Process 5/325mg Tab ([place] 21:00 Ondansetron Hcl PHA 04/24/25 In Process (Zofran) 21:00 Docusate Sodium PHA 04/24/25 In Process Capsule (Colace 21:00 Complete Blood Count LAB 04/25/25 Verified 04:00 Comprehensive LAB 04/25/25 Verified Metabolic Panel 04:00 Echo 2d Mode Cardiac US 04/24/25 Logged DOP 20:57 Condition: Serious HARJINDER 04/24/25 In Process 20:57 Acetaminophen Tablet PHA 04/24/25 In Process (Tylenol Tablet) 21:00 Bedrest With Bathroom HARJINDER 04/24/25 In Process Privileg 20:57 Sequential HARJINDER 04/24/25 In Process Compression Device Sevelamer (Renagel) PHA 04/25/25 In Process 08:00 B-Complex W/ C & PHA 04/25/25 In Process Folic Tablet 10:00 Trazodone Hcl PHA 04/24/25 In Process (Desyrel) 22:00 Admit ADMIT 04/24/25 Transmitted 22:19 Nitroglycerin PHA 04/24/25 Transmitted Sublingual (Ntrostat 22:30 Morphine Sulfate PHA 04/24/25 Transmitted Injection 22:30 Stat Ekg For Chest HARJINDER 04/24/25 Transmitted Pain 22:19 Notify Of Changes HARJINDER 04/24/25 Transmitted From Base 22:19 Strategic Business Development For HARJINDER 04/24/25 Transmitted 24 Hours 22:19 Emergency Dysrhythmia HARJINDER 04/24/25 Transmitted Protocol 22:19 Rhythm Strips Once [facility] 04/24/25 Transmitted Every Shift 22:19 Oxygen By Nasal RT 04/24/25 Transmitted Cannula 22:19 Problem List: (1) Generalized weakness (2) Demand ischemia (3) Elevated troponin (4) ESRD needing dialysis (5) Acute exacerbation of congestive heart failure Date of Service: Apr 24, 2025 Billing Provider: LEV GUERREOR DNP Common Visit Codes: [id number] INP/OBS CARE (HIGH) LEV GUERRERO DNP Apr 24, 2025 22:23
[2025-04-24] MEDS ORDERED: MORPHINE SULFATE INJ 2 MG/ml SYRG IV PRN (22:30)
[2025-04-24] MEDS ORDERED: NITROGLYCERIN 0.4 MG SL TAB SL PRN (22:30)
[2025-04-25] MEDS ORDERED: SEVELAMER 800 MG TAB PO SCH (08:00)
[2025-04-25] MEDS ORDERED: B-COMPLEX W/ C & FOLIC ACID(NEPHROVITE TAB) PO SCH (10:00)
--- NOTE | 2025-04-26 07:18 | ECG ---
[facility] Test Date: 2025-04-24 Test Time: 16:26:32 Pat Name: MESSI CROWDER Department: Room: [address] [place] [address] Gender: M Manager Staffing: SHREE : 1965 Requested By: CARMELITA MORROW Order Number: [id number] Reading MD: Mckay Evans Measurements Intervals [place] Rate: 119 P: 14 CT: 156 QRS: 5 QRSD: 105 T: 90 QT: 341 QTc: 480 Interpretive Statements Sinus arrhythmia Multiple premature complexes, vent & supraven LVH with secondary repolarization abnormality Anterior ST elevation, probably due to LVH Borderline prolonged QT interval Electronically Signed On 04-26-2025 14:25:50 PDT by Mckay Evans Please click the below link to view image of tracing.
== END 2025-04-24 22:19 | disposition left against medical advice (07) | DRG 194 ==
LOC: EDUNIT# 15:36 → EDBD 15:36 → ER 15:48 → OVERFLOW 22:19
PROVIDERS: ADMIT Nurse Practitioner Family; ATTEND Nurse Practitioner Family
DX: I13.2 Hypertensive heart and chronic kidney disease with heart failure and with stage 5 chronic kidney disease, or end stage renal disease (principal); I24.89 Other forms of acute ischemic heart disease; N18.6 End stage renal disease; J44.9 Chronic obstructive pulmonary disease, unspecified; Z53.29 Procedure and treatment not carried out because of patient's decision for other reasons; E11.22 Type 2 diabetes mellitus with diabetic chronic kidney disease; Z98.61 Coronary angioplasty status; Z79.2 Long term (current) use of antibiotics; Z79.899 Other long term (current) drug therapy; Z79.01 Long term (current) use of anticoagulants; Z79.82 Long term (current) use of aspirin; Z99.2 Dependence on renal dialysis; I50.43 Acute on chronic combined systolic (congestive) and diastolic (congestive) heart failure
CPT/HCPCS: 36415; 71045; 80053; 83880; 84484; 85025; 93005; 99291; G0378

== ENCOUNTER 2025-05-01 21:15 | Inpatient (IN) | payer MEDICAID ==
[~2025-05-01] VITALS: Ht 177.8 cm; Wt 101.4 kg
[2025-05-01 23:18] LABS: Hematocrit 39.0 % (41.0-53.0); Hemoglobin 13.1 g/dL (13.5-17.5); Mean Corpuscular Hemoglobin 32.8 pg (28.0-32.0); Mean Corpuscular Volume 97.5 fL (80.0-100.0); Nucleated Red Blood Cells % 0.0 %
--- NOTE | 2025-05-01 23:20 | ED.PDOC ---
History of Present Illness HPI Comments 60 y/o M, with a Hx of ESRD w/HD M/W/F and tobacco cigarette use, presents with c/c bilateral leg swelling and redness. Patient endorses on drinking more fluids, lately, due to extreme heat temperatures following last HD session, yesterday. Denial of any chest pain, shortness of breath, or further acute symp toms. Chief Complaint: Shortness of Breath Time Seen by MD: 22:30 Primary Care Provider: Nura Reviewed Notes: Nurses Notes, Mucker Operator Notes Allergies: Coded Allergies: NO KNOWN ALLERGIES (Unverified , 05/13/23) Home Meds Active Scripts Sodium Zirconium Cyclosilicate (Lokelma) 10 Gm Zaheer, 10 GM PO DAILY for 30 Days, #30 PACK Prov:ALLA MARRERO RESIDENT 11/12/24 Azithromycin (ZITHROMAX TABLET) 250 Mg Tb, 250 MG PO DAILY for 5 Days, #5 TAB Prov:ALLA MARRERO RESIDENT 11/12/24 Azithromycin (Zithromax Z-Zaheer) 250 Mg Tab, 250 MG PO DAILY for 4 Days, #4 TAB Prov:DALILA RESENDIZ RESIDENT 05/27/24 Apixaban Base (ELIQUIS) 5 Mg Tab, 5 MG PO BID for 30 Days, #60 TAB Prov:DALILA RESENDIZ RESIDENT 05/27/24 Amiodarone HCl (Amiodarone HCl) 200 Mg Tab, 200 MG PO Q12HR for 30 Days, #60 TAB Prov:DALILA RESENDIZ RESIDENT 05/27/24 Reported Medications B-Complex W/ C & Folic Acid ([place]-Patty Rx) Tab, 1 TAB PO DAILY for 30 Days, #30 05/26/24 Amlodipine Besylate (Amlodipine Besylate) 10 Mg Tab, 1 TAB PO DAILY for 30 Days, #30 05/26/24 Valsartan (Valsartan) 160 Mg Tab, 160 MG PO DAILY, TAB 06/10/23 Trazodone Hcl (Trazodone Hcl) 100 Mg Tab, 1 TAB PO QPM, #30 TAB 1 Refill 05/13/23 Carvedilol (Carvedilol) 12.5 Mg Tab, 1 TAB PO BID, #180 TAB 1 Refill 05/13/23 Bumetanide (Bumetanide) 2 Mg Tab, 1 TAB PO DAILY for 60 Days, #60 05/13/23 Hydralazine Hcl (Hydralazine Hcl) 50 Mg Tab, 100 MG PO TID for 30 Days, MG 05/13/23 Atorvastatin Calcium (ATORVASTATIN CALCIUM) 20 Mg Tab, 1 TAB PO DAILY, #30 TAB 5 Refills 05/13/23 Aspirin (ASPIRIN 81) 81 Mg Tab, 1 TAB PO DAILY for 30 Days, #30 05/13/23 Calcium Acetate (Phosphate Bin (Calcium Acetate) 667 Mg Cap, 2 CAP PO TIDWM for 30 Days, #270 05/13/23 Information Source: Patient, Emergency Med Personnel Mode of Arrival: EMS Past Medical History PAST MEDICAL HISTORY: CHF, CKF, COPD, DM, ESRD, HTN Surgical History: PTCA Family History Family History: Reviewed,noncontributory to illness, Unknown Social History Smoker: Unknown Alcohol: Unknown Drugs: Unknown Lives In: Home All Other Systems: Reviewed and Negative (As per HPI) Physical Exam General Appearance: No Apparent Distress, Normal HEENT: Normal ENT Inspection, Pharynx Normal, TMs Normal Neck: Full Range of Motion, Non-Tender, Normal, Normal Inspection Respiratory: Chest Non-Tender, Lungs Clear, No Accessory Muscle Use, No Respiratory Distress, Normal Breath Sounds Cardiovascular: No Edema, No JVD, No Murmur, No Gallop, Normal Peripheral Pulses, Regular Rate/Rhythm Breast Exam: Deferred Gastrointestinal: No Organomegaly, Non Tender, No Pulsatile Mass, Normal Bowel Sounds, Soft Genitalia: Deferred Pelvic: Deferred Rectal: Deferred Extremities: No calf tenderness, Normal capillary refill, Normal inspection, Normal range of motion, Non-tender, No pedal edema Musculoskeletal : Apperance: Normal Neurologic: Alert, 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 Was a procedure done?: No EKG EKG : Pulse Rate (adult): 98 [place]: Normal Cardiac Rhythm: NSR Block: None Hypertrophy: None ST: Normal Differential Dx Considerations may include: fluid retention, cellulitis, dermatitis, acute CHF/COPD exacerbation, among others X-Ray, Labs, Meds, VS Vital Signs Date Time Temp Pulse Resp B/P (MAP) Pulse Ox O2 Delivery O2 Flow Rate FiO2 05/01/25 23:20 98 05/01/25 21:57 98 05/01/25 21:27 98.8 100 18 118/62 95 98.8 Lab Test 05/01/25 23:56 05/01/25 22:57 Range/Units Troponin I High Sensitivity 244 *H 264 *H </=54 ng/L White Blood Count 7.0 4.4-10.8 10^3/uL Red Blood Count 4.00 L 4.5-5.90 10^6/uL Hemoglobin 13.1 L 13.5-17.5 g/dL Hematocrit 39.0 L 41.0-53.0 % Mean Corpuscular Volume 97.5 80.0-100.0 fL Mean Corpuscular Hemoglobin 32.8 H 28.0-32.0 pg Mean Corpuscular Hemoglobin Concent 33.7 32.0-36.0 g/dL Red Cell Distribution Width 18.8 H 11.8-14.3 % Platelet Count 124 L 140-450 10^3/uL Mean Platelet Volume 9.6 6.9-10.8 fL Neutrophils (%) (Auto) 70.2 37.0-80.0 % Lymphocytes (%) (Auto) 15.1 10.0-50.0 % Monocytes (%) (Auto) 10.0 0.0-12.0 % Eosinophils (%) (Auto) 3.7 0.0-7.0 % Basophils (%) (Auto) 1.0 0.0-2.0 % Neutrophils # (Auto) 4.9 1.6-8.6 10 ^3/uL Lymphocytes # (Auto) 1.1 0.4-5.4 10 ^3/uL Monocytes # (Auto) 0.7 0-1.3 10 ^3/uL Eosinophils # (Auto) 0.3 0-0.8 10 ^3/uL Basophils # (Auto) 0.1 0-0.2 10 ^3/uL Nucleated Red Blood Cells 0.0 % Sodium Level 136 136-145 mmol/L Potassium Level 4.2 3.5-5.1 mmol/L Chloride Level 98 98-107 mmol/L Carbon Dioxide Level 23 20-31 mmol/L Anion Gap 15 5-15 Blood Urea Nitrogen 41 H 9-23 mg/dL Creatinine 7.07 H 0.700-1.30 mg/dL Glomerular Filtration Rate Calc 8 >90 mL/min BUN/Creatinine Ratio 5.8 L 10.0-20.0 Serum Glucose 92 74-106 mg/dL Calcium Level 9.1 8.7-10.4 mg/dL B-Type Natriuretic Peptide 3393.26 0-100 pg/mL [address] [address] Ph: [phone] DIAGNOSTIC IMAGING Diagnostic Imaging Report : [id number] Signed PATIENT: MESSI CROWDER ACCT: [id number] UNIT: [id number] : 1965 LOC: ER ROOM / BED: / AGE / SEX: 60 / M ADM STATUS: REG ER SERVICE 34 ORDERING PHYSICIAN: DREW BRANCH MD PROCEDURE(s): CXRP - CHEST PORTABLE REASON: edema ORDER NUMBER(s): [id number], ACCESSION NUMBER(s): [id number] CHEST RADIOGRAPH Indication: edema Technique: 1 view Comparison: XR CHEST 1 VIEW on DOS: 04/25/25, XY CHEST PORTABLE on DOS: 04/24/25, XY CHEST PORTABLE on DOS: 03/28/25, XY CHEST PORTABLE on DOS: 03/22/25, XR CHEST 1 VIEW on DOS: 02/15/25 FINDINGS: Lines and Tubes: Unchanged tunneled right IJ catheter. Lungs/Pleura: Interval worsening of perihilar interstitial opacities. No evidence of focal consolidation, pleural effusion or pneumothorax. Cardiomediastinum: Unchanged, enlarged. Other: No acute osseous abnormality. IMPRESSION: 1. Worsening heart failure pattern with more prominent interstitial opacities from recent comparison exams. ATED BY: AUSTIN BURK MD DICTATED DATE/TIME: 05/01/252325 SIGNED BY: AUSTIN BURK MD SIGNED DATE/TIME: 05/01/252325 CC: Time of 1ST Reevaluation: 23:00 Reevaluation 1ST: Unchanged Patient Education/Counseling: Diagnosis, Treatment, Need For Follow Up Family Education/Counseling: No Family Present Comments This is a patient who has end-stage kidney disease. He admittedly has been drinking a lot more fluids because of the hot weather. As a result he feels edematous and swollen. He denies any chest pain or shortness of breath. The workup that showed that he is in acute CHF. His potassium is not elevated and he is not acidotic although he is in CHF he is not in respiratory failure. In addition his troponin levels elevated but they remained stable on serial levels. This is likely due to the retained in the trouble and then from the renal failure. Patient will be admitted to be seen by Nephrology for dialysis as he is aneuric Additional Information Previous visits: April 24, 2025 encounter for generalized weakness The following tests were ordered, and results were reviewed by me: EKG, troponin, BMP, CBC, CXR Additional Information was gathered from interviewing the following independent historians: N/A I reviewed and agreed with the following test results read by other providers: CXR I discussed treatment and results with medical personnel and: patient SEPSIS Sepsis Screen Date sepsis recognized/suspect: May 01, 2025 Time Sepsis recognized/suspect: 2129 Recent Procedure: No On Antibiotic Therapy: No Respiratory Rate >20: No Heart Rate >90: Yes Temp<36 C (96.8 F) or >38.3 C: No SBP <90 or MAP <65 mmHG: No New Acute Mental Status Change: No Is the patient on CPAP, BIPAP,: No Physician Orders Chest Portable (05/01/25 22:35) Electrocardigram (05/01/25 22:35) Troponin-I Hs (05/02/25 01:35) Electrocardigram (05/01/25 23:35) Electrocardigram (05/02/25 01:35) Vital Signs Date Time Temp Pulse Resp B/P (MAP) Pulse Ox O2 Delivery O2 Flow Rate FiO2 05/01/25 23:20 98 05/01/25 21:57 98 05/01/25 21:27 98.8 100 18 118/62 95 98.8 Laboratory Tests Test 05/01/25 22:57 White Blood Count 7.0 10^3/uL (4.4-10.8) Departure 1 Departure Time of Disposition: 01:54 Impression: Primary Impression: Acute exacerbation of congestive heart failure Additional Impressions: Patient's noncompliance with other medical treatment and regimen for other reason End stage kidney disease Elevated troponin Disposition: ADMITTED INPATIENT Admit to: Tele Condition: Serious Discharged With: Self Critical Care Note Critical Care Time?: Yes (55 min-critical care time only) Critical care comment: Due to concerns for patients condition deteriorating, the care required my highest level of attention and readiness to intervene. I assessed the patient, reviewed the medical records, ordered the appropriate tests and treatments, then reassessed for results and responsiveness. I communicated with medical personnel and consultants and formulated a plan of care. Total critical care time excludes any procedures Stability Stability form required: No Heart Score Heart Score: Heart Score Response (Comments) Value History N/A 0 EKG N/A 0 Age N/A 0 Risk Factors N/A 0 Troponin N/A 0 Total 0 I personally scribed for DREW BRANCH MD ([email or web address]) on 05/01/25 at 23:20. Electronically submitted by Guillermo Mckinley ([email or web address]). I personally scribed for DREW BRANCH MD ([email or web address]) on 05/02/25 at 00:33. Electronically submitted by Guillermo Mckinley ([email or web address]). DREW BRANCH MD May 01, 2025 23:20
[2025-05-01 23:26] LABS: Chloride 98 mmol/L (98-107); Potassium 4.2 mmol/L (3.5-5.1)
[2025-05-01 23:27] LABS: Anion Gap 15 (5-15); Calcium 9.1 mg/dL (8.7-10.4); Carbon Dioxide 23 mmol/L (20-31)
--- NOTE | 2025-05-01 23:28 | DVH ---
CHEST RADIOGRAPH Indication: edema Technique: 1 view Comparison: XR CHEST 1 VIEW on DOS: 04/25/25, XY CHEST PORTABLE on DOS: 04/24/25, XY CHEST PORTABLE on DO S: 03/28/25, XY CHEST PORTABLE on DOS: 03/22/25, XR CHEST 1 VIEW on DOS: 02/15/25 FINDINGS: Lines and Tubes: Unchanged tunneled right IJ catheter. Lungs/Pleura: Interval worsening of perihilar interstitial opacities. No evidence of focal consolida tion, pleural effusion or pneumothorax. Cardiomediastinum: Unchanged, enlarged. Other: No acute osseous abnormality. IMPRESSION: 1. Worsening heart failure pattern with more prominent interstitial opacities from recent comparison exams.
[2025-05-01 23:32] LABS: BUN/Creatinine Ratio 5.8 (10.0-20.0); Glucose 92 mg/dL (74-106)
[2025-05-01 23:50] LABS: Blood Urea Nitrogen 41 mg/dL (9-23); Sodium 136 mmol/L (136-145)
[2025-05-02] VITALS (12 sets, daily range): BP systolic 118–167; BP diastolic 62–111; PULSE 91–105; RESP 14–24; TEMP 97.7–98.4; O2SAT 96–100
--- NOTE | 2025-05-02 02:50 | DVHHPRES ---
History of Present Illness Resident Creating Document: AUGUST BENZ RESIDENT History of Present Illness Justen Hawthorne is a 60-year-old male patient presents to ED with chief complaint of progressive dyspnea from functional class II to IV in the past 2 weeks, associated with increase in weight (his dry weight is 96 kg, currently he weighs 99 kg). Patient also reports running out of medication (aspirin), and worsening of his bilateral lower limb cellulitis (he was given doxycycline two days before his admission). Patient reports completing PCI three months and [facility] ago with placement of one stent. Patient recently had mechanical fall with no loss of consciousness where he hit his right flank, presenting posteriorly abdominal bloating. 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 Surgical history: PCI three months ago (01/2025) Family history: Multiple cousins with cancer Social history: Lives in [place] [facility] with friends (ex- is next of kin, her number is [phone], Rosario). Current tobacco abuse (46 pack-year history of smoking) ex methamphetamine abuse, quit two months ago. Denies current alcohol and other drug abuse Allergies: Denies Home medication: Bumex 2 mg p.o. b.i.d., calcium, aspirin 81 mg p.o. daily (stopped taking it four days ago), doxycycline, Plavix, Alma Vit Patient seen and examined in [facility]. Currently dyspnea has improved. He does present nonproductive cough during examination. Past Medical History Per HPI Past Surgical History Per HPI Family History Per HPI Past Social History Per HPI Review of Systems Review of Systems Per HPI Allergies: Coded Allergies: NO KNOWN ALLERGIES (Unverified , 05/13/23) Exam Vital Signs Vital Signs Date Time Temp Pulse Resp B/P (MAP) Pulse Ox O2 Delivery O2 Flow Rate FiO2 05/01/25 23:20 98 05/01/25 21:27 98.8 18 118/62 95 98.8 Exam Patient lying in bed, in no acute distress General: Lucid, afebrile, mucosae are moist Cardiovascular: Normal S1 and S2. No murmurs, gallops or rubs Respiratory: Regular ventilation mechanics. Diffuse wheezing both hemithorax Abdomen: Soft, nontender, no organomegaly, normal bowel sounds. Presents distention in right side of abdomen, it is not tender. MSK/skin: Mobilizes 4 limbs. Skin is dry and warm. Erythema bilateral lower limbs, associated with bilateral suprapatellar edema. Bruising in right shoulder Neurological: Oriented in 3 spheres. No motor no sensitive deficits. Pupils are isocoric and reactive Labs/Xrays Labs Test 05/01/25 23:56 05/01/25 22:57 Range/Units Troponin I High Sensitivity 244 *H </=54 ng/L White Blood Count 7.0 4.4-10.8 10^3/uL Red Blood Count 4.00 L 4.5-5.90 10^6/uL Hemoglobin 13.1 L 13.5-17.5 g/dL Hematocrit 39.0 L 41.0-53.0 % Mean Corpuscular Volume 97.5 80.0-100.0 fL Mean Corpuscular Hemoglobin 32.8 H 28.0-32.0 pg Mean Corpuscular Hemoglobin Concent 33.7 32.0-36.0 g/dL Red Cell Distribution Width 18.8 H 11.8-14.3 % Platelet Count 124 L 140-450 10^3/uL Mean Platelet Volume 9.6 6.9-10.8 fL Neutrophils (%) (Auto) 70.2 37.0-80.0 % Lymphocytes (%) (Auto) 15.1 10.0-50.0 % Monocytes (%) (Auto) 10.0 0.0-12.0 % Eosinophils (%) (Auto) 3.7 0.0-7.0 % Basophils (%) (Auto) 1.0 0.0-2.0 % Neutrophils # (Auto) 4.9 1.6-8.6 10 ^3/uL Lymphocytes # (Auto) 1.1 0.4-5.4 10 ^3/uL Monocytes # (Auto) 0.7 0-1.3 10 ^3/uL Eosinophils # (Auto) 0.3 0-0.8 10 ^3/uL Basophils # (Auto) 0.1 0-0.2 10 ^3/uL Nucleated Red Blood Cells 0.0 % Sodium Level 136 136-145 mmol/L Potassium Level 4.2 3.5-5.1 mmol/L Chloride Level 98 98-107 mmol/L Carbon Dioxide Level 23 20-31 mmol/L Anion Gap 15 5-15 Blood Urea Nitrogen 41 H 9-23 mg/dL Creatinine 7.07 H 0.700-1.30 mg/dL Glomerular Filtration Rate Calc 8 >90 mL/min BUN/Creatinine Ratio 5.8 L 10.0-20.0 Serum Glucose 92 74-106 mg/dL Calcium Level 9.1 8.7-10.4 mg/dL B-Type Natriuretic Peptide 3393.26 0-100 pg/mL SEPSIS Sepsis Screen Date sepsis recognized/suspect: May 01, 2025 Time Sepsis recognized/suspect: 2129 Recent Procedure: No On Antibiotic Therapy: No Respiratory Rate >20: No Heart Rate >90: Yes Temp<36 C (96.8 F) or >38.3 C: No SBP <90 or MAP <65 mmHG: No New Acute Mental Status Change: No Is the patient on CPAP, BIPAP,: No Physician Orders Chest Portable (05/01/25 22:35) Electrocardigram (05/01/25 22:35) Troponin-I Hs (05/02/25 01:35) Electrocardigram (05/01/25 23:35) Electrocardigram (05/02/25 01:35) Admit (05/02/25 02:47) Code Status (05/02/25 02:47) Vital Signs .PER UNIT PROTOCOL (05/02/25 02:47) Review Orders With Adm.Md (05/02/25 02:47) Notify Md Of Changes From Base (05/02/25 02:47) Advance Directive (05/02/25 02:47) Echo 2d Mode Cardiac Dop (05/02/25 02:47) Patient Condition (05/02/25 02:47) Allergies (05/02/25 02:47) Ondansetron Hcl (Zofran) (05/02/25 03:00) Morphine 2mg Iv Q4hprn (05/02/25 03:00) Lovenox 40mg (05/02/25 10:00) Oxygen By Nasal Cannula (05/02/25 02:47) Stat Ekg For Chest Pain (05/02/25 02:47) Notify Of Changes From Base (05/02/25 02:47) Neurosurgical Physician Assistant For 24 Hours (05/02/25 02:47) Emergency Dysrhythmia Protocol (05/02/25 02:47) Rhythm Strips Once Every Shift (05/02/25 02:47) Vital Signs Date Time Temp Pulse Resp B/P (MAP) Pulse Ox O2 Delivery O2 Flow Rate FiO2 05/01/25 23:20 98 05/01/25 21:57 98 05/01/25 21:27 98.8 100 18 118/62 95 98.8 Laboratory Tests Test 05/01/25 22:57 White Blood Count 7.0 10^3/uL (4.4-10.8) Assessment/Plan Assessment/Plan Acute on chronic systolic congestive heart failure (HFrEF, LVEF 30-35%) NSTEMI likely type 2 Probable pulmonary hypertension (RVSP 45 mmHg) History of aortic stenosis status post TAVR Coronary artery disease status post PCI with one stent three months ago Paroxysmal atrial fibrillation (chads Vasc three) secondary hypercoagulability state EKG completed in normal sinus rhythm with no ST-elevation (negative T-waves in lateral leads with LVH), troponin elevated but flat trending, denies chest pain (dyspnea could be equivalent of angina). BNP is elevated. Both BNP and troponin may be elevated secondary to ESRD. Currently under IV diuretic treatment (Bumex 2.5 mg IV b.i.d.) Strict I&Os Last echocardiogram completed on 05/2024: LVEF 30-35, grade 1 diastolic dysfunction, aortic stenosis with mean gradient 50/35 mmHg and valve area 1.32 Ordered new echocardiogram Patient is on heparin for anticoagulation due to ESRD, on DAPT and statins. Exacerbation COPD Indicated methylprednisolone 40 mg IV b.i.d. and bronchodilators No oxygen therapy required at this time. Goal saturation above 88% Bilateral lower limb cellulitis Rule out DVT Patient was on doxycycline as outpatient. Currently under empiric IV antibiotic (clindamycin) Ordered lower limb extremity venous ultrasound to rule out DVT ESRD on hemodialysis (Saturday, Saturday and Saturday) Patient follows with Aquilino Hdez, consulted Nephrology to continue with dialysis. Continue Alma-Patty and calcium carbonate. Abdominal wall edema status post mechanical fall with no loss of consciousness Multiple retroperitoneal lymph nodes Completed abdomen and pelvis CT: No evidence of acute intra-abdominal or pelvic abnormalities, cholelithiasis, small amount of free pelvic fluid, multiple small retroperitoneal lymph nodes measuring up to 0.7 cm (rule out reactive versus neoplastic process, repeat CT in three months) Liver cirrhosis secondary to hepatitis-C - not treated Patient has no follow up with GI specialist Recommend follow up as outpatient. Ordered hepatitis panel. Evaluate need for viral load Non adherence to medication Polysubstance abuse (tobacco and ex methamphetamine) Patient has stopped taking medication (aspirin four days ago) since he ran out of medication Ordered UDS Indicated nicotine patch Counseled strongly on cessation of polysubstance abuse Hypertension Dyslipidemia Continue home medication Gave advice on healthy lifestyle habits Goals of care discussed with patient for over 18 minutes: Full code status (next of kin is ex- Rosario, phone number [phone]) Discussed plan with Dr. Jiménez, patient and nurses: Patient admitted to telemetry due to acute CHF, with NSTEMI probably type II in patient with ESRD. Ordered echocardiogram and complementary workup. Patient has poor prognosis Plan discussed with: Patient, Other (Nurses) My Orders Orders - AUGUST BENZ RESIDENT Procedure Category Date Status Time Admit ADMIT 05/02/25 Transmitted 02:47 Code Status CODE 05/02/25 Transmitted 02:47 Vital Signs [facility] 05/02/25 Transmitted 02:47 Review Orders With [facility] 05/02/25 Transmitted Adm. 02:47 Notify Of Changes [facility] 05/02/25 Transmitted From Base 02:47 Advance Directive [facility] 05/02/25 Transmitted 02:47 Echo 2d Mode Cardiac US 05/02/25 Transmitted DOP 02:47 Patient Condition ORDERS 05/02/25 Transmitted 02:47 Allergies [facility] 05/02/25 Transmitted 02:47 Ondansetron Hcl PHA 05/02/25 Transmitted (Zofran) 03:00 Morphine 2mg Iv Q4hprn PHA 05/02/25 Transmitted 03:00 Lovenox 40mg PHA 05/02/25 Transmitted 10:00 Oxygen By Nasal RT 05/02/25 Transmitted Cannula 02:47 Stat Ekg For Chest [facility] 05/02/25 Transmitted Pain 02:47 Notify Of Changes [facility] 05/02/25 Transmitted From Base 02:47 Neurosurgical Physician Assistant For [facility] 05/02/25 Transmitted 24 Hours 02:47 Emergency Dysrhythmia [facility] 05/02/25 Transmitted Protocol 02:47 Rhythm Strips Once [facility] 05/02/25 Transmitted Every Shift 02:47 Date of Service: May 02, 2025 Billing Provider: MILTON JIMÉNEZ MD Common Visit Codes: 79371-[id number] INP/OBS CARE (HIGH) Secondary Visit Codes: 07786-[id number] CARE PLAN 30 MINUTES AUGUST BENZ RESIDENT May 02, 2025 02:50
[2025-05-02] MEDS ORDERED: MORPHINE SULFATE INJ 2 MG/ml SYRG IV PRN (03:00)
[2025-05-02] MEDS ORDERED: ONDANSETRON HCL 4 MG/2 ML VIAL IV PRN (03:00)
[2025-05-02] MEDS: IPRATROPIUM BROM 0.5 MG/2.5ML INH SOL NEB ONE (03:38)
[2025-05-02 03:55] LABS: Hematocrit 39.4 % (41.0-53.0); Hemoglobin 13.3 g/dL (13.5-17.5); Mean Corpuscular Hemoglobin 32.9 pg (28.0-32.0); Mean Corpuscular Volume 97.3 fL (80.0-100.0); Nucleated Red Blood Cells % 0.1 %
[2025-05-02 04:08] LABS: Alanine Aminotransferase 18 U/L (7-40); Albumin 4.2 g/dL (3.2-4.8); Anion Gap 14 (5-15); BUN/Creatinine Ratio 5.7 (10.0-20.0); Calcium 8.8 mg/dL (8.7-10.4); Carbon Dioxide 25 mmol/L (20-31); Glucose 87 mg/dL (74-106); Potassium 4.0 mmol/L (3.5-5.1); Total Protein 7.8 g/dL (5.7-8.2)
[2025-05-02 04:09] LABS: Bilirubin, Total 1.0 mg/dL (0.2-1.0)
[2025-05-02 04:12] LABS: Alkaline Phosphatase 156 U/L (46-116); Blood Urea Nitrogen 41 mg/dL (9-23); Chloride 97 mmol/L (98-107); Sodium 136 mmol/L (136-145)
--- NOTE | 2025-05-02 04:39 | DVH ---
Exam: CT CT AB PEL WO CON-NO ORAL OR IV History: Abdominal distension pose mechanical fall Comparison Study: None TECHNIQUE: Multidetector CT of the abdomen and pelvis was performed from lung bases to pubic symphysi s. Imaging was performed without IV contrast. Axial, coronal and sagittal multiplanar reformats were obtained from the axial data set by the technologist. Radiation optimization: All CT scans at this facility use at least one of these dose optimization ruperto hniques: automated exposure control mA and/or kV adjustment per patient size (includes targeted exam s where dose is matched to clinical indication) or iterative reconstruction. Radiation Dose Information: CT Dose: CTDI volume is 22.83 mGy. Dose-length product is 3.92 mGy*cm FINDINGS: Evaluation of solid organs is limited due to lack of intravenous contrast use. Imaged portions of the lung bases appear unremarkable. There is cardiac enlargement with aortic stent . There are coronary artery calcifications. Liver, spleen, pancreas and adrenal glands appear unremarkable. There is cholelithiasis. The kidneys appear mildly atrophic. There is no evidence of bowel obstruction or focal bowel wall thickening. Small amount of free pelvi c fluid. Multiple small retroperitoneal lymph nodes measuring up to 0.7 cm in short axis. No suspicious osseous lesion. IMPRESSION: 1. No evidence of acute intra-abdominal or pelvic abnormalities. 2. Cholelithiasis. 3. Small amount of free pelvic fluid. 4. Multiple small retroperitoneal lymph nodes measuring up to 0.7 cm in short axis, indeterminate. C orrelation with clinical history is recommended. Findings may be on the basis of reactive or neoplast ic process. 3-month follow-up is recommended if no known etiology.
[2025-05-02 04:43] LABS: INR 1.17 (0.9-1.15); Partial Thromboplastin Time 29.3 SEC (24.5-34.5); Prothrombin Time 12.2 sec (9.3-11.8)
[2025-05-02] MEDS: methylPREDNISolone SOD SUCC 40 MG/ML VL ONE ×2 (04:44→04:46)
[2025-05-02] MEDS: CLINDAMYCIN 300MG IV 50 ML IV ONE ×2 (04:47→05:45)
[2025-05-02] MEDS: BUMETANIDE 2.5mg/10ml (0.25 mg/ml) INJ IV ONE (04:54)
[2025-05-02] MEDS: methylPREDNISolone SOD SUCC 40 MG/ML VL IV ONE (04:54)
[2025-05-02] MEDS: B-COMPLEX W/ C & FOLIC ACID(NEPHROVITE TAB) PO ONE (04:54)
[2025-05-02] MEDS: cefTRIAXone SOD 1,000 MG VL IV ONE (05:07)
[2025-05-02] MEDS: NICOTINE 21MG/24 HR TOPICAL PATCH TD ONE (05:10)
[2025-05-02] MEDS: BUMETANIDE 2.5mg/10ml (0.25 mg/ml) INJ IV SCH (05:29)
[2025-05-02 05:30] LABS: Magnesium 2.0 mg/dL (1.6-2.6); Triglycerides 74.0 mg/dL (< 150)
[2025-05-02 05:32] LABS: Cholesterol 148.0 mg/dL (< 200)
[2025-05-02] MEDS: HEPARIN SODIUM (PORCINE) 5000 UNITS/ML 1ML VIAL SC SCH (05:34)
[2025-05-02 05:35] LABS: HDL Cholesterol 68.0 mg/dL (40-59)
[2025-05-02 06:09] LABS: Lipase 31.0 U/L (12-53)
[2025-05-02] MEDS: LEVALBUTEROL HCL 1.25 MG/3 ML NEB NEB SCH (06:10)
[2025-05-02] MEDS: IPRATROPIUM BROM 0.5 MG/2.5ML INH SOL ONE ×2 (06:10→06:11)
[2025-05-02] MEDS: LEVALBUTEROL HCL 1.25 MG/3 ML NEB ONE (06:10)
[2025-05-02] MEDS: IPRATROPIUM BROM 0.5 MG/2.5ML INH SOL NEB SCH (06:10)
--- NOTE | 2025-05-02 07:02 | ECG ---
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
[2025-05-02] MEDS: CALCIUM CARB 500 MG CHEW TAB PO SCH (07:50)
[2025-05-02] MEDS ORDERED: CALCIUM CARB 500 MG CHEW TAB ONE (07:51)
[2025-05-02] MEDS ORDERED: ENOXAPARIN SOD 40 MG/0.4 ML SYRINGE SC SCH (10:00)
[2025-05-02] MEDS ORDERED: NICOTINE 14 MG/24HR TOPICAL PATCH TD ONE (10:25)
[2025-05-02] MEDS ORDERED: B-COMPLEX W/ C & FOLIC ACID(NEPHROVITE TAB) ONE (10:26)
[2025-05-02] MEDS ORDERED: methylPREDNISolone SOD SUCC 40 MG/ML VL ONE (10:26)
[2025-05-02] MEDS ORDERED: CLOPIDOGREL BISULFATE 75 MG TAB ONE (10:26)
[2025-05-02] MEDS: NICOTINE 21MG/24 HR TOPICAL PATCH TD SCH (10:27)
[2025-05-02] MEDS: B-COMPLEX W/ C & FOLIC ACID(NEPHROVITE TAB) PO SCH (10:27)
[2025-05-02] MEDS: methylPREDNISolone SOD SUCC 40 MG/ML VL IV SCH (10:28)
[2025-05-02] MEDS: CLOPIDOGREL BISULFATE 75 MG TAB PO SCH (10:28)
[2025-05-02 11:41] LABS: COVID19 ANTIGEN SOFIA FIA NEGATIVE (NEGATIVE)
--- NOTE | 2025-05-02 11:42 | DVH ---
Bilateral lower extremity venous Doppler INDICATION: Bilateral leg swelling TECHNIQUE: Duplex venous sonography was performed with real-time and flow sensitive images submitted for evaluation. FINDINGS: Normal phasic venous flow. Veins are fully compressible. No filling defects. IMPRESSION: 1. No evidence of deep vein thrombosis.
[2025-05-02] MEDS ORDERED: IPRATROPIUM BROM 0.5 MG/2.5ML INH SOL ONE ×2 (11:51→15:53)
[2025-05-02] MEDS ORDERED: ALBUTEROL SULF 2.5 MG/0.5ML(0.5%) NEB SOLN ONE ×2 (11:51→15:52)
[2025-05-02] MEDS ORDERED: LEVALBUTEROL HCL 1.25 MG/3 ML NEB ONE (11:55)
[2025-05-02] MEDS ORDERED: HEPARIN SODIUM (PORCINE) 5000 UNITS/ML 1ML VIAL ONE (14:08)
--- NOTE | 2025-05-02 15:34 | DVHINCON2 ---
Date of service: May 02, [address] Becky Choe Reason for Consultation Dialysis History of Present Illness 60 Y/O M with history of ESRD on HD via Rt IJ TC, HTN, CAD s/p stent, aortic stenosis s/p TAVR, systolic CHF (EF: 30-35%), and paroxysmal atrial fibrillation presented with chief complaint of SOB, and lower extremity cellulitis which has not improved after oral doxycycline. K is 4.0, Hb: 13.3 g/dl. There is no fever, and no leukocytosis. Dialysis schedule is MWF. he had his last dialysis on Saturday. Nephrology consulted for dialysis Past Medical History ESRD, HTN, CAD , aortic stenosis, systolic CHF, and paroxysmal atrial fibrillation Past Surgical History tunneled CVC placement s/p TAVR coronary stent placement Allergies: Coded Allergies: NO KNOWN ALLERGIES (Unverified , 05/13/23) Home Meds Active Scripts Sodium Zirconium Cyclosilicate (Lokelma) 10 Gm Zaheer, 10 GM PO DAILY for 30 Days, #30 PACK Prov:ALLA MARRERO RESIDENT 11/12/24 Azithromycin (ZITHROMAX TABLET) 250 Mg Tb, 250 MG PO DAILY for 5 Days, #5 TAB Prov:ALLA MARRERO RESIDENT 11/12/24 Azithromycin (Zithromax Z-Zaheer) 250 Mg Tab, 250 MG PO DAILY for 4 Days, #4 TAB Prov:DALILA RESENDIZ RESIDENT 05/27/24 Apixaban Base (ELIQUIS) 5 Mg Tab, 5 MG PO BID for 30 Days, #60 TAB Prov:DALILA RESENDIZ RESIDENT 05/27/24 Amiodarone HCl (Amiodarone HCl) 200 Mg Tab, 200 MG PO Q12HR for 30 Days, #60 TAB Prov:DALILA RESENDIZ RESIDENT 05/27/24 Reported Medications B-Complex W/ C & Folic Acid (Alma-Patty Rx) Tab, 1 TAB PO DAILY for 30 Days, #30 05/26/24 Amlodipine Besylate (Amlodipine Besylate) 10 Mg Tab, 1 TAB PO DAILY for 30 Days, #30 05/26/24 Valsartan (Valsartan) 160 Mg Tab, 160 MG PO DAILY, TAB 06/10/23 Trazodone Hcl (Trazodone Hcl) 100 Mg Tab, 1 TAB PO QPM, #30 TAB 1 Refill 05/13/23 Carvedilol (Carvedilol) 12.5 Mg Tab, 1 TAB PO BID, #180 TAB 1 Refill 05/13/23 Bumetanide (Bumetanide) 2 Mg Tab, 1 TAB PO DAILY for 60 Days, #60 05/13/23 Hydralazine Hcl (Hydralazine Hcl) 50 Mg Tab, 100 MG PO TID for 30 Days, MG 05/13/23 Atorvastatin Calcium (ATORVASTATIN CALCIUM) 20 Mg Tab, 1 TAB PO DAILY, #30 TAB 5 Refills 05/13/23 Aspirin (ASPIRIN 81) 81 Mg Tab, 1 TAB PO DAILY for 30 Days, #30 05/13/23 Calcium Acetate (Phosphate Bin (Calcium Acetate) 667 Mg Cap, 2 CAP PO TIDWM for 30 Days, #270 05/13/23 Current Medications Current Medications Medications (Trade) Dose Ordered Sig/Sandor Route PRN Reason Start Time Stop Time Status Last Admin Ondansetron HCl (Zofran) 4 mg Q4HP PRN IV NAUSEA / VOMITING 05/02/25 03:00 Morphine Sulfate 2 mg Q4HPRN PRN IV SEVERE PAIN (7-10 PAIN SCALE) 05/02/25 03:00 Enoxaparin Sodium (Lovenox) 40 mg DAILY SC 05/02/25 10:00 05/02/25 04:17 DC Clindamycin Phosphate 50 ml @ 50 mls/hr Q8HR IV 05/02/25 14:00 Bumetanide (Bumex Injection) 2.5 mg BIDD IV 05/02/25 06:00 Aspirin 81 mg DAILY PO 05/02/25 10:00 05/02/25 10:28 Clopidogrel Bisulfate (Plavix) 75 mg DAILY PO 05/02/25 10:00 05/02/25 10:28 Atorvastatin Calcium (Lipitor) 40 mg HS PO 05/02/25 22:00 Calcium Carbonate (Tums) 500 mg TIDWM PO 05/02/25 08:00 05/02/25 11:46 Multivit/Ca Carb/ B Cmplx/FA/Prenat (Nephro-Patty Tablet) 1 tab DAILY PO 05/02/25 10:00 05/02/25 10:27 Nicotine (Nicoderm 21MG/ 24HR) 1 patch DAILY TD 05/02/25 10:00 05/02/25 10:27 Methylprednisolone Sodium Succinate (Solu Medrol) 40 mg BID IV 05/02/25 10:00 05/02/25 10:28 Ipratropium [place] (Atrovent Medneb) 0.5 mg Q6HWA [facility] 05/02/25 06:00 05/02/25 11:49 Levalbuterol HCl (Xopenex Medneb) 0.625 mg Q6HR NEB 05/02/25 06:00 05/02/25 11:53 Heparin Sodium (Porcine) 5,000 units Q8HR IN 05/02/25 06:00 05/02/25 14:16 Family History: Hypertension G8 FATHER, Onset:50's - 60 Review of Systems as per HPI , all other systems were reviewed and are negative H&P Exam Vital Signs/I&O Vital Sign Date Time Temp Pulse Resp B/P (MAP) Pulse Ox O2 Delivery O2 Flow Rate FiO2 05/02/25 12:00 98 16 159/107 (124) 100 05/02/25 08:00 98.4 98.4 05/02/25 08:00 Nasal Cannula* 2 28 Physical Exam Gen: NAD HEENT: NC,AT Lungs: Crackles lung bases Cardiac: RRR, no murmur Abd: soft, no distention Ext: + erythematous, +1 edema + Rt IJ TC Labs/Diagnostic Data Labs/Diagnostic Data Laboratory Tests Test 05/02/25 10:05 05/02/25 03:30 05/01/25 23:56 05/01/25 22:57 Range/Units Influenza Type A Antigen Negative Negative Influenza Type B Antigen Negative Negative SARS-CoV-2 Antigen (Rapid) Negative NEGATIVE White Blood Count 6.7 7.0 4.4-10.8 10^3/uL Red Blood Count 4.05 L 4.00 L 4.5-5.90 10^6/uL Hemoglobin 13.3 L 13.1 L 13.5-17.5 g/dL Hematocrit 39.4 L 39.0 L 41.0-53.0 % Mean Corpuscular Volume 97.3 97.5 80.0-100.0 fL Mean Corpuscular Hemoglobin 32.9 H 32.8 H 28.0-32.0 pg Mean Corpuscular Hemoglobin Concent 33.7 33.7 32.0-36.0 g/dL Red Cell Distribution Width 19.1 H 18.8 H 11.8-14.3 % Platelet Count 122 L 124 L 140-450 10^3/uL Mean Platelet Volume 9.8 9.6 6.9-10.8 fL Neutrophils (%) (Auto) 66.4 70.2 37.0-80.0 % Lymphocytes (%) (Auto) 17.0 15.1 10.0-50.0 % Monocytes (%) (Auto) 10.2 10.0 0.0-12.0 % Eosinophils (%) (Auto) 4.5 3.7 0.0-7.0 % Basophils (%) (Auto) 1.9 1.0 0.0-2.0 % Neutrophils # (Auto) 4.4 4.9 1.6-8.6 10 ^3/uL Lymphocytes # (Auto) 1.1 1.1 0.4-5.4 10 ^3/uL Monocytes # (Auto) 0.7 0.7 0-1.3 10 ^3/uL Eosinophils # (Auto) 0.3 0.3 0-0.8 10 ^3/uL Basophils # (Auto) 0.1 0.1 0-0.2 10 ^3/uL Nucleated Red Blood Cells 0.1 0.0 % Prothrombin Time 12.2 H 9.3-11.8 sec Prothrombin Time INR 1.17 H 0.9-1.15 Activated Partial Thromboplast Time 29.3 24.5-34.5 SEC Sodium Level 136 136 136-145 mmol/L Potassium Level 4.0 4.2 3.5-5.1 mmol/L Chloride Level 97 L 98 98-107 mmol/L Carbon Dioxide Level 25 23 20-31 mmol/L Anion Gap 14 15 5-15 Blood Urea Nitrogen 41 H 41 H 9-23 mg/dL Creatinine 7.20 H 7.07 H 0.700-1.30 mg/dL Glomerular Filtration Rate Calc 8 8 >90 mL/min BUN/Creatinine Ratio 5.7 L 5.8 L 10.0-20.0 Serum Glucose 87 92 74-106 mg/dL Hemoglobin A1c 5.2 <5.7 % A1C Lactic Acid Level 1.0 0.4-2.0 mmol/L Calcium Level 8.8 9.1 8.7-10.4 mg/dL Phosphorus Level 4.4 2.4-5.1 mg/dL Magnesium Level 2.0 1.6-2.6 mg/dL Total Bilirubin 1.0 0.2-1.0 mg/dL Aspartate Amino Transferase (AST) 30 13-40 U/L Alanine Aminotransferase (ALT) 18 7-40 U/L Alkaline Phosphatase 156 H 46-116 U/L Ammonia < 10 L 11-32 umol/L Troponin I High Sensitivity 253 *H 244 *H 264 *H </=54 ng/L Total Protein 7.8 5.7-8.2 g/dL Albumin 4.2 3.2-4.8 g/dL Triglycerides Level 74 < 150 mg/dL Cholesterol Level 148 < 200 mg/dL LDL Cholesterol 61 < 100 mg/dL HDL Cholesterol 68 H 40-59 mg/dL Lipase 31 12-53 U/L Thyroid Stimulating Hormone (TSH) 4.55 0.55-4.78 uIU/mL B-Type Natriuretic Peptide 3393.26 0-100 pg/mL Assessment ESRD on HD via Rt IJ TC Acute on chronic systolic CHF (EF: 30-35%) bilateral lower extremity cellulitis HTN Elevated troponin, no up-trend CAD s/p stent h/o aortic stenosis s/p TAVR paroxysmal atrial fibrillation Secondary hyperparathyroidism Metabolic acidosis Azotemia Hyperphosphatemia Plan: HD tomorrow. goal 3.5 L UF IV antibiotics per primary team blood cultures Cardiology consult no need for BRISEIDA at this time Plan discussed with: Patient ANDREW BUTTS MD May 02, 2025 15:34
[2025-05-02] MEDS: CLINDAMYCIN 300MG IV 50 ML IV SCH (16:13)
[2025-05-02] MEDS ORDERED: hydrALAZINE HCL 20 MG/ML VL IV PRN ×2 (16:45→20:45)
[2025-05-02] MEDS ORDERED: CLOP75TA70 PO (18:48)
[2025-05-02] MEDS ORDERED: B-CO-6 OR (18:48)
[2025-05-02] MEDS ORDERED: DOXY150C6 PO (18:48)
[2025-05-02] MEDS ORDERED: ASPI-543 PO (18:48)
[2025-05-02] MEDS ORDERED: hydrALAZINE HCL 20 MG/ML VL ONE (21:01)
[2025-05-02] MEDS: ATORVASTATIN 20 MG TAB PO SCH (22:35)
[2025-05-03 00:13] VITALS: PULSE 98; RESP 16; O2SAT 95
[2025-05-03 00:23] VITALS: PULSE 98; RESP 18; O2SAT 100
[2025-05-03] MEDS ORDERED: SODIUM CHL 0.9% 1000 ML BAG XX ONE (07:00)
--- NOTE | 2025-05-03 09:58 | DVHSR ---
APPROVED REPORT EXAM: Two-dimensional and M-mode echocardiogram with Doppler and color Doppler. Blood Pressure: 133/70 mmHg INDICATION CHF Surgery/Intervention Valve Replacement: Type: TAVR RISK FACTORS Height: 5' 10", Weight: 199 DIMENSIONS LVDd6.5 (3.8-5.7cm)LA (2D)5.3 (1.9-4.0cm)Aortic Root4.7 (2.0-3.7cm) LVDs6.2 (2.5-4.0cm)LA (MM) (1.9-4.0cm)Aortic Cusp Exc (1.5-2.0cm) EF (%) 15.0 (55-70%)Rt. Atrium6.0 (1.9-4.0cm)Asc. Aorta cm IVSd1.6 (0.7-1.1cm)RV (D) (1.8-2.4cm) PWd1.5 (0.7-1.1cm) Mitral Valve MitralMitral Stenosis E wave1.50m/sMV Mean GR.mmHg E/A ratio0.02D MVAcm2 Aortic Valve Aortic ValveAortic Stenosis V10.50m/Tatyana Mean GR.9mmHg V22.00m/Tatyana Peak GR.17mmHg Pulmonic Valve V20.60m/s Tricuspid Valve TR Velocity2.90m/s [id number] Conclusion lvef 20% severe dilated LV end stage HF RV enlarged biatrian elargement s/p AV replacement, prosthetic, mean gradient of 8 mmhg moderate mitral regurg mod to severe tricuspid regurg
[2025-05-03 10:19] LABS: Hepatitis B Surface Antigen Negative (Negative)
[2025-05-03 12:00] LABS: Hepatitis C Antibody Reactive (Negative)
== END 2025-05-03 01:47 | disposition left against medical advice (07) | DRG 194 ==
LOC: ER 21:15 → EDBD 21:15 → OVERFLOW 05-02 02:47 → TELE-WESTW 05-02 17:03
PROVIDERS: ADMIT Student in an Organized Health Care Education/Training Program; ATTEND Internal Medicine
DX: I13.2 Hypertensive heart and chronic kidney disease with heart failure and with stage 5 chronic kidney disease, or end stage renal disease (principal); E87.20 Acidosis, unspecified; L03.115 Cellulitis of right lower limb; E83.39 Other disorders of phosphorus metabolism; J44.1 Chronic obstructive pulmonary disease with (acute) exacerbation; I21.A1 Myocardial infarction type 2; I50.23 Acute on chronic systolic (congestive) heart failure; N18.6 End stage renal disease; Z20.822 Contact with and (suspected) exposure to COVID-19; L03.116 Cellulitis of left lower limb; I48.0 Paroxysmal atrial fibrillation; I25.10 Atherosclerotic heart disease of native coronary artery without angina pectoris; N25.81 Secondary hyperparathyroidism of renal origin; Z53.29 Procedure and treatment not carried out because of patient's decision for other reasons; K74.60 Unspecified cirrhosis of liver; E78.5 Hyperlipidemia, unspecified; I35.0 Nonrheumatic aortic (valve) stenosis; B19.20 Unspecified viral hepatitis C without hepatic coma; E11.22 Type 2 diabetes mellitus with diabetic chronic kidney disease; Z95.5 Presence of coronary angioplasty implant and graft; Z91.199 Patient's noncompliance with other medical treatment and regimen due to unspecified reason; Z95.2 Presence of prosthetic heart valve; Z87.891 Personal history of nicotine dependence; Z82.49 Family history of ischemic heart disease and other diseases of the circulatory system; Z99.2 Dependence on renal dialysis
CPT/HCPCS: 36415; 71045; 74176; 80048; 80053; 80061; 80074; 82140; 82306; 82607; 83036; 83605; 83690; 83735; 83880; 84100; 84443; 84484; 85025; 85610; 85730; 87040; 87070; 87205; 87426; 87804; 93005; 93306; 93970; 94640; 99291; G0378; J3490